=== PATIENT | male | born 1935 | race Caucasian/White ===

== ENCOUNTER 2016-12-04 10:52 | Outpatient (CLI) | payer MEDICARE, MEDICAID | END 2016-12-04 10:53 | disposition home or self-care (01) | DX: E11.8 Type 2 diabetes mellitus with unspecified complications (principal); I10 Essential (primary) hypertension ==

== ENCOUNTER 2016-12-05 | Outpatient (CLI) | payer MEDICARE, MEDICAID | END 2016-12-05 10:55 | disposition home or self-care (01) | DX: Z53.9 Procedure and treatment not carried out, unspecified reason (principal) ==

== ENCOUNTER 2016-12-05 15:19 | Outpatient (CLI) | payer MEDICARE, MEDICAID | END 2016-12-05 15:20 | disposition home or self-care (01) | DX: E11.65 Type 2 diabetes mellitus with hyperglycemia (principal) ==

== ENCOUNTER 2017-03-30 10:48 | Outpatient (CLI) | payer MEDICARE, MEDICAID | END 2017-03-30 10:49 | disposition home or self-care (01) | DX: E11.9 Type 2 diabetes mellitus without complications (principal); N18.2 Chronic kidney disease, stage 2 (mild); I12.9 Hypertensive chronic kidney disease with stage 1 through stage 4 chronic kidney disease, or unspecified chronic kidney disease ==

== ENCOUNTER 2017-07-17 15:32 | Outpatient (CLI) | payer MEDICARE, MEDICAID ==
[2017-07-17 19:54] LABS: CALCIUM 9.3 mg/dL (8.5-10.3); CREATININE 1.3 mg/dL (0.6-1.2); POTASSIUM 4.1 mmol/L (3.5-5.0)
[2017-07-17 20:33] LABS: HEMOGLOBIN A1C 1.58 g/dL
== END 2017-07-17 15:33 | disposition home or self-care (01) ==
LOC: LAB.F 15:32
PROVIDERS: ATTEND Family Medicine
DX: E11.40 Type 2 diabetes mellitus with diabetic neuropathy, unspecified (principal); L98.9 Disorder of the skin and subcutaneous tissue, unspecified
CPT/HCPCS: 36415; 80048; 83036

== ENCOUNTER 2017-10-26 12:39 | Outpatient (CLI) | payer MEDICARE, MEDICAID ==
[2017-10-26 18:20] LABS: HEMOGLOBIN A1C 1.44 g/dL
[2017-10-26 18:21] LABS: CALCIUM 8.8 mg/dL (8.5-10.3); CREATININE 1.4 mg/dL (0.6-1.2); POTASSIUM 4.5 mmol/L (3.5-5.0)
== END 2017-10-26 12:40 | disposition home or self-care (01) ==
LOC: LAB.F 12:39
PROVIDERS: ATTEND Family Medicine
DX: E11.40 Type 2 diabetes mellitus with diabetic neuropathy, unspecified (principal); E11.22 Type 2 diabetes mellitus with diabetic chronic kidney disease; I12.9 Hypertensive chronic kidney disease with stage 1 through stage 4 chronic kidney disease, or unspecified chronic kidney disease; N18.2 Chronic kidney disease, stage 2 (mild)
CPT/HCPCS: 36415; 80048; 83036

== ENCOUNTER 2018-02-07 08:51 | Outpatient (CLI) | payer MEDICARE, MEDICAID ==
[2018-02-07 11:20] LABS: CALCIUM 9.1 mg/dL (8.5-10.3); CREATININE 1.4 mg/dL (0.6-1.2); URIC ACID 6.1 mg/dL (2.6-7.2)
[2018-02-07 11:32] LABS: HB2 TOTAL 16.8 g/dL; HEMOGLOBIN A1C 1.44 g/dL
== END 2018-02-07 08:52 | disposition home or self-care (01) ==
LOC: LAB.F 08:51
PROVIDERS: ATTEND Family Medicine
DX: M1A.9XX0 Chronic gout, unspecified, without tophus (tophi) (principal); E11.40 Type 2 diabetes mellitus with diabetic neuropathy, unspecified; I10 Essential (primary) hypertension
CPT/HCPCS: 36415; 80048; 83036; 84550

== ENCOUNTER 2018-03-30 17:45 | Emergency (ER) | payer MEDICARE, MEDICAID ==
--- NOTE | 2018-03-30 18:20 | ED Physician Documentation ---
History of Present Illness - Stated complaint Stated Complaint: DIZZY, STOMACH TENDERNESS - Chief complaint Chief Complaint: General - History obtained from History obtained from: Patient, Friend - History of Present Illness Timing: Other (He has had an upset stomach for a few days, no vomiting though. Starting just prior to arrival he developed 5 or 6 episodes of diarrhea and was incontinent of stool. His chief complaint is "I am here because I shit my pants." He denies any fevers.) Review of Systems Ten Systems: 10 systems reviewed and negative Constitutional: denies: Fever, Chills GI: denies: Abdominal Swelling, Nausea, Vomiting, Constipation, Hematemesis, Bloody / black stool PD PAST MEDICAL HISTORY - Past Medical History Cardiovascular: Coronary artery disease, Arrhythmia (heart block) Endocrine/Autoimmune: Type 2 diabetes - Past Surgical History Past Surgical History: Yes Cardiovascular: CABG - Present Medications Home Medications: Ambulatory Orders Medication Instructions Recorded Confirmed Insulin Glargine,Hum.rec.anlog 30 units SQ DAILY 05/27/15 05/27/15 [Lantus] Allopurinol 1 tab PO DAILY 03/30/18 03/30/18 metFORMIN [Glucophage] 1 tab PO BID 03/30/18 03/30/18 - Allergies Allergies/Adverse Reactions: Allergies Allergy/AdvReac Type Severity Reaction Status Date / Time penicillin * [penicillin] AdvReac Unknown Verified 05/27/15 13:55 Sulfonylureas AdvReac Unknown Verified 05/27/15 13:55 - Social History Does the pt smoke?: No Does the pt drink ETOH?: No Does the pt have substance abuse?: No - Immunizations Immunizations are current?: Yes - POLST Patient has POLST: No PD ED PE NORMAL - Vitals Vital signs reviewed: Yes (HR 80 on my exam) - General General: Alert and oriented X 3, No acute distress - HEENT HEENT: PERRL, EOMI - Neck Neck: Supple, no meningeal sign, No bony TTP - Cardiac Cardiac: RRR, No murmur - Respiratory Respiratory: No respiratory distress, Clear bilaterally - Abdomen Abdomen: Normal bowel sounds, Soft, Non tender - Extremities Extremities: No edema, No calf tenderness / cord - Neuro Neuro: Alert and oriented X 3, Normal speech Results - Vitals Vitals: Vital Signs - 24 hr 03/30/18 17:49 Temperature 36.1 C L Heart Rate 134 H Respiratory 16 Rate Blood Pressure 111/83 H O2 Saturation 100 Oxygen O2 Source Room air - Labs Labs: Laboratory Tests 03/30/18 03/30/18 03/30/18 18:50 18:50 18:50 WBC 10.5 RBC 5.43 Hgb 16.4 Hct 50.1 MCV 92.3 MCH 30.3 MCHC 32.8 RDW 13.6 Plt Count 193 MPV 10.2 Neut # 7.8 H Lymph # 1.4 L [place] # 0.8 Eos # 0.4 Baso # 0.1 Absolute Nucleated RBC 0.00 Nucleated RBC % 0.0 Sodium 137 Potassium 4.2 Chloride 102 Carbon Dioxide 25 Anion Gap 10.0 BUN 44 H Creatinine 1.7 H Estimated GFR (MDRD) 39 L Glucose 234 H Lactic Acid 1.5 Calcium 9.2 Total Bilirubin 0.8 AST 22 ALT 21 Alkaline Phosphatase 86 Total Protein 7.9 Albumin 4.4 Globulin 3.5 Albumin/Globulin Ratio 1.3 Lipase 23 PD MEDICAL DECISION MAKING - ED course ED course: 82-year-old gentleman with just a few hours of diarrhea. He is not tachycardic in contrast to the triage notes. He had no bowel movements here and his lab work is unremarkable except for mild prerenal pattern and he was advised to push oral fluids. Departure - Departure Disposition: 01 Home, Self Care Clinical Impression: Diarrhea Qualifiers: Diarrhea type: unspecified type Qualified Code(s): R19.7 - Diarrhea, unspecified Condition: Good Record reviewed to determine appropriate education?: Yes Instructions: ED Diarrhea Viral Comments: Drink plenty of fluids, return if worse, follow-up with your doctor this coming week.
[2018-03-30 19:03] LABS: BASOPHILS # (AUTO) 0.1 10^3/uL (0.0-0.1); BASOPHILS % (AUTO) 0.8 %; EOSINOPHILS # (AUTO) 0.4 10^3/uL (0.0-0.7); EOSINOPHILS % (AUTO) 3.9 %; HGB - HEMOGLOBIN 16.4 g/dL (14.0-18.0); LYMPHOCYTES # (AUTO) 1.4 10^3/uL (1.5-3.5); MEAN CORPUSCULAR HEMOGLOBIN 30.3 pg (27.0-31.0); MEAN CORPUSCULAR HGB CONC 32.8 g/dL (32.0-36.0); MEAN CORPUSCULAR VOLUME 92.3 fL (80.0-94.0); MEAN PLATELET VOLUME 10.2 fL (7.4-11.4); MONOCYTES # (AUTO) 0.8 10^3/uL (0.0-1.0); MONOCYTES % (AUTO) 7.5 %; NEUTROPHILS # (AUTO) 7.8 10^3/uL (1.5-6.6); NEUTROPHILS % (AUTO) 74.8 %; PLT - PLATELET COUNT 193 10^3/uL (130-450); RED BLOOD COUNT 5.43 10^6/uL (4.70-6.10); RED CELL DISTRIBUTION WIDTH 13.6 % (12.0-15.0); WHITE BLOOD COUNT 10.5 x10^3/uL (4.8-10.8)
[2018-03-30 19:12] LABS: ALBUMIN 4.4 g/dL (3.2-5.5); ALBUMIN/GLOBULIN RATIO 1.3 (1.0-2.2); BILIRUBIN,TOTAL 0.8 mg/dL (0.2-1.0); CALCIUM 9.2 mg/dL (8.5-10.3); CREATININE 1.7 mg/dL (0.6-1.2); TOTAL PROTEIN 7.9 g/dL (6.7-8.2)
[2018-03-30 19:32] VITALS: BP 150/64
== END 2018-03-30 19:30 | disposition home or self-care (01) ==
LOC: ED 17:45
DX: R19.7 Diarrhea, unspecified (principal); E11.9 Type 2 diabetes mellitus without complications; Z79.4 Long term (current) use of insulin; I25.10 Atherosclerotic heart disease of native coronary artery without angina pectoris; Z95.1 Presence of aortocoronary bypass graft
CPT/HCPCS: 36415; 80053; 83605; 83690; 85025; 99282; 99283

== ENCOUNTER 2018-05-09 09:33 | Outpatient (CLI) | payer MEDICARE, MEDICAID ==
[2018-05-09 18:21] LABS: ALBUMIN 3.9 g/dL (3.2-5.5); ALBUMIN/GLOBULIN RATIO 1.1 (1.0-2.2); BILIRUBIN,TOTAL 0.9 mg/dL (0.2-1.0); CALCIUM 9.3 mg/dL (8.5-10.3); CREATININE 1.5 mg/dL (0.6-1.2); TOTAL PROTEIN 7.4 g/dL (6.7-8.2)
[2018-05-09 18:25] LABS: HB2 TOTAL 17.9 g/dL; HEMOGLOBIN A1C 1.59 g/dL; HEMOGLOBIN A1C % 10.3 % (4.6-6.2)
== END 2018-05-09 09:34 | disposition home or self-care (01) ==
LOC: LAB.F 09:33
PROVIDERS: ATTEND Family Medicine
DX: E11.22 Type 2 diabetes mellitus with diabetic chronic kidney disease (principal); E11.40 Type 2 diabetes mellitus with diabetic neuropathy, unspecified; N18.2 Chronic kidney disease, stage 2 (mild); I25.810 Atherosclerosis of coronary artery bypass graft(s) without angina pectoris
CPT/HCPCS: 36415; 80053; 83036; 84443

== ENCOUNTER 2018-07-18 14:33 | Outpatient (CLI) | payer MEDICARE, MEDICAID ==
[2018-07-18 17:59] LABS: HB2 TOTAL 15.4 g/dL; HEMOGLOBIN A1C 1.44 g/dL; HEMOGLOBIN A1C % 10.7 % (4.6-6.2)
== END 2018-07-18 14:34 | disposition home or self-care (01) ==
LOC: LAB.F 14:33
PROVIDERS: ATTEND Nurse Practitioner Family
DX: E11.40 Type 2 diabetes mellitus with diabetic neuropathy, unspecified (principal)
CPT/HCPCS: 36415; 83036

== ENCOUNTER 2018-09-13 02:29 | Outpatient (CLI) | payer MEDICARE, MEDICAID | END 2018-09-13 02:30 | disposition EMS.NT | LOC: EMS 02:29 | PROVIDERS: ATTEND Surgery | DX: Z03.89 Encounter for observation for other suspected diseases and conditions ruled out (principal) ==

== ENCOUNTER 2018-10-14 08:00 | Outpatient (CLI) | payer MEDICARE, MEDICAID ==
[2018-10-14 18:59] LABS: HEMOGLOBIN A1C 1.02 g/dL; HEMOGLOBIN A1C % 8.4 % (4.6-6.2)
== END 2018-10-14 23:59 | disposition home or self-care (01) ==
LOC: LAB.S 08:00
PROVIDERS: ATTEND Nurse Practitioner Family
DX: E11.40 Type 2 diabetes mellitus with diabetic neuropathy, unspecified (principal)
CPT/HCPCS: 36415; 83036

== ENCOUNTER 2018-12-30 08:00 | Outpatient (CLI) | payer MEDICARE, MEDICAID ==
[2018-12-30 18:57] LABS: HB2 TOTAL 17.2 g/dL; HEMOGLOBIN A1C 1.38 g/dL; HEMOGLOBIN A1C % 9.5 % (4.6-6.2)
== END 2018-12-30 23:59 | disposition home or self-care (01) ==
LOC: LAB.S 08:00
PROVIDERS: ATTEND Nurse Practitioner Family
DX: E11.40 Type 2 diabetes mellitus with diabetic neuropathy, unspecified (principal)
CPT/HCPCS: 36415; 83036

== ENCOUNTER 2019-01-31 06:34 | Outpatient (CLI) | payer MEDICARE, MEDICAID | END 2019-01-31 06:35 | disposition critical access hospital (66) | LOC: EMS 06:34 | PROVIDERS: ATTEND Surgery | DX: M25.552 Pain in left hip (principal); W18.30XA Fall on same level, unspecified, initial encounter; Y93.E2 Activity, laundry; Y92.019 Unspecified place in single-family (private) house as the place of occurrence of the external cause; Y99.8 Other external cause status | CPT/HCPCS: A0425; A0429 ==

== ENCOUNTER 2019-01-31 07:10 | Emergency (ER) | payer MEDICARE, MEDICAID ==
[2019-01-31 07:43] LABS: BASOPHILS # (AUTO) 0.1 10^3/uL (0.0-0.1); EOSINOPHILS # (AUTO) 0.7 10^3/uL (0.0-0.7); EOSINOPHILS % (AUTO) 7.8 %; HGB - HEMOGLOBIN 15.4 g/dL (14.0-18.0); LYMPHOCYTES # (AUTO) 1.8 10^3/uL (1.5-3.5); LYMPHOCYTES % (AUTO) 20.9 %; MEAN CORPUSCULAR HEMOGLOBIN 29.8 pg (27.0-31.0); MEAN CORPUSCULAR HGB CONC 33.3 g/dL (32.0-36.0); MEAN CORPUSCULAR VOLUME 89.7 fL (80.0-94.0); MEAN PLATELET VOLUME 9.7 fL (7.4-11.4); MONOCYTES % (AUTO) 11.3 %; PLT - PLATELET COUNT 170 10^3/uL (130-450); RED BLOOD COUNT 5.16 10^6/uL (4.70-6.10); RED CELL DISTRIBUTION WIDTH 14.3 % (12.0-15.0); WHITE BLOOD COUNT 8.5 x10^3/uL (4.8-10.8)
[2019-01-31 07:48] LABS: ALBUMIN 3.9 g/dL (3.2-5.5); ALBUMIN/GLOBULIN RATIO 1.2 (1.0-2.2); BILIRUBIN,TOTAL 0.8 mg/dL (0.2-1.0); CREATININE 1.2 mg/dL (0.6-1.2); TOTAL PROTEIN 7.2 g/dL (6.7-8.2)
--- NOTE | 2019-01-31 07:48 | ED Physician Documentation ---
PD HPI Fall - Stated complaint Stated Complaint: GLF - Chief complaint Chief Complaint: General - History obtained from History obtained from: Patient - History of Present Illness Mechanism of injury: Lost balance Fall distance: Standing position Where injury occurred: Home Timing - onset: Yesterday Injury(ies) location: Left Lower Extremity Quality of pain: Pain Associated symptoms: Neck pain. No: LOC, Weakness Worsens with: Movement, Other (Weight bearing.) Similar symptoms before: Has not had sx before - Additional information Additional information: The patient is an 83-year-old male who arrives via ambulance complaining of left hip pain after falling yesterday. He was bending over to picking tech clothing from the floor when he lost his balance and stumbled, landing onto his left hip. He uses a walker when ambulating, and has been able to ambulate since the incident occurred, but the pain was worse this morning, causing difficulty getting up from bed. He also complains of pain in his right shoulder, at the base of his neck. He denies headache, chest pain or shortness of breath, nausea or vomiting, numbness or weakness. Review of Systems Constitutional: denies: Fever Eyes: denies: Decreased vision Ears: reports: Other (Chronic hearing impairment.). denies: Tinnitus/ringing Nose: denies: Congestion Throat: denies: Sore throat Cardiac: denies: Chest pain / pressure Respiratory: denies: Dyspnea, Cough GI: denies: Abdominal Pain, Nausea, Vomiting : denies: Dysuria Skin: denies: Rash, Abrasion (s) Musculoskeletal: reports: Neck pain, Joint pain (left hip) Neurologic: denies: Focal weakness, Numbness, Headache PD PAST MEDICAL HISTORY - Past Medical History Past Medical History: Yes Cardiovascular: Coronary artery disease, Arrhythmia Endocrine/Autoimmune: Type 2 diabetes - Past Surgical History Past Surgical History: Yes Cardiovascular: CABG - Present Medications Home Medications: Ambulatory Orders Medication Instructions Recorded Confirmed Insulin Glargine,Hum.rec.anlog 30 units SQ DAILY 05/27/15 05/27/15 [Lantus] Allopurinol 1 tab PO DAILY 03/30/18 03/30/18 metFORMIN [Glucophage] 1 tab PO BID 03/30/18 03/30/18 Hydrocodone/Acetaminophen 1 - 2 each PO Q6H PRN #14 tablet 01/31/19 [Hydrocodon-Acetaminophen 5-325] - Allergies Allergies/Adverse Reactions: Allergies Allergy/AdvReac Type Severity Reaction Status Date / Time penicillin * [penicillin] AdvReac Unknown Verified 01/31/19 07:24 Sulfonylureas AdvReac Unknown Verified 01/31/19 07:24 - Living Situation Living Situation: reports: Alone Living Arrangement: reports: At home - Social History Does the pt smoke?: No Smoking Status: Never smoker Does the pt drink ETOH?: No Does the pt have substance abuse?: No - Immunizations Immunizations are current?: Yes - POLST Patient has POLST: No PD ED PE NORMAL - Vitals Vital signs reviewed: Yes (normal) - General General: Alert and oriented X 3, Well developed/nourished - HEENT HEENT: Atraumatic, EOMI, Pharynx benign - Neck Neck: Supple, no meningeal sign, No bony TTP, Other (Mild tenderness to palpation in the right lower paracervical musculature. No tenderness to palpation along the spinous processes.) - Cardiac Cardiac: RRR - Respiratory Respiratory: No respiratory distress, Clear bilaterally - Abdomen Abdomen: Soft, Non tender - Back Back: No CVA TTP, No spinal TTP - Derm Derm: No rash - Extremities Extremities: No edema, No calf tenderness / cord, Other (There is tenderness to palpation at the posterior lateral aspect of the left hip, more along the inferior pubic ramus than the hip joint. He is able to internally and externally rotate the hip, although it produces mild discomfort. Distal neurovascular is intact.) - Neuro Neuro: Alert and oriented X 3, No motor deficit, No sensory deficit Results - Vitals Vitals: Vital Signs - 24 hr 01/31/19 01/31/19 11:10 12:32 Temperature 36.2 C L Heart Rate 72 78 Respiratory 18 18 Rate Blood Pressure 118/85 H 137/76 H O2 Saturation 96 91 L Oxygen O2 Source Room air - EKG (time done) 07:56 Rate: Rate (enter#) (66) Rhythm: Paced (Atrial-sensed, ventricular-paced complexes.) Compare to prior EKG: Changed from prior EKG (Pacer is new since prior tracing of 05/27/2015.) - Labs Labs: Laboratory Tests 01/31/19 01/31/19 07:28 07:28 WBC 8.5 RBC 5.16 Hgb 15.4 Hct 46.3 MCV 89.7 MCH 29.8 MCHC 33.3 RDW 14.3 Plt Count 170 MPV 9.7 Neut # (Auto) 5.0 Lymph # (Auto) 1.8 [place] # (Auto) 1.0 Eos # (Auto) 0.7 Baso # (Auto) 0.1 Absolute Nucleated RBC 0.00 Nucleated RBC % 0.0 Sodium 139 Potassium 3.7 Chloride 103 Carbon Dioxide 28 Anion Gap 8.0 BUN 28 H Creatinine 1.2 Estimated GFR (MDRD) 58 L Glucose 121 H Calcium 9.0 Total Bilirubin 0.8 AST 24 ALT 22 Alkaline Phosphatase 90 Total Protein 7.2 Albumin 3.9 Globulin 3.3 Albumin/Globulin Ratio 1.2 Lipase 56 H - Rads (name of study) Left hip/pelvis Radiology: Prelim report reviewed, EMP read contemporaneously, See rad report (1) Acute fracture of the left inferior pubic ramus near its junction with the ischial tuberosity. Expected slot editor fracture within the left obturator ring is not apparent on these radiographs. 2) No appreciable hip fracture. 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 Limited visualization of C7-T1 due to superimposed structures.) PD MEDICAL DECISION MAKING - ED course Complexity details: reviewed results, re-evaluated patient, considered differential, d/w patient ED course: The patient's presentation is significant for a left inferior pubic ramus fracture caused by a low-impact fall yesterday. Other than contusion to the right shoulder, no other injuries are detected. Cervical spine films reveal no evidence of cervical spine fracture. The patient demonstrates ability to ambulate with the assistance of a walker, which is his baseline level of ambulation. I discussed with him the expected course of injury, symptomatic treatment and outpatient follow-up, as well as potentially worrisome signs or symptoms that should prompt reevaluation in the emergency department. Departure - Departure Disposition: 01 Home, Self Care Clinical Impression: Closed fracture of single pubic ramus of pelvis Qualifiers: Encounter type: initial encounter Laterality: left Qualified Code(s): S32.592A - Other specified fracture of left pubis, initial encounter for closed fracture Condition: Stable Instructions: ED Fx Pelvis Follow-Up: Fly,Sylvia M, EDUCATION AND TRAINING MANAGER [Credentialed Staff Provider] - Prescriptions: Hydrocodone/Acetaminophen [Hydrocodon-Acetaminophen 5-325] 1 - 2 each PO Q6H PRN #14 tablet PRN Reason: pain Comments: Apply ice pack to the sore area intermittently for the next 3 days. You can use ibuprofen, up to 600 mg 3 times daily for its anti-inflammatory effect. You can use Vicodin as prescribed if needed for pain. Follow-up with your primary physician within 1-2 weeks. Call to schedule an appointment. Return to the emergency department if you develop significantly increasing pain, or otherwise worsening symptoms. Discharge Date/Time: 01/31/19 12:32
--- NOTE | 2019-01-31 08:17 | XRAY Report ---
Reason: Left hip pain after fall. Procedure Date: 01/31/2019 Accession Number: [id number] / [id number] Procedure: XR - Hip w/Pelvis 2-3V LT CPT Code: FULL RESULT: EXAM: LEFT HIP RADIOGRAPHY EXAM DATE: 01/31/2019 07:56 AM. CLINICAL HISTORY: Left hip pain after a fall. COMPARISON: None. TECHNIQUE: 2 views. FINDINGS: Bones: Acute nondisplaced fracture is noted of the left inferior pubic ramus near its junction with the ischial tuberosity. Expected program counselor fracture of the left obturator ring and/or acetabulum is not demonstrated on these radiographs. No appreciable hip fracture. Sacral ala appear intact. 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 There is both subchondral sclerosis and degenerative subchondral cysts on both sides of the joint space. Mild to moderate marginal osteophyte noted of the femoral head. Soft Tissues: Normal. No soft tissue swelling. IMPRESSION: 1. Acute fracture of the left inferior pubic ramus near its junction with the ischial tuberosity. Expected program counselor fracture within the left obturator ring is not apparent on these radiographs. 2. No appreciable hip fracture. 3. 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 RADIA
--- NOTE | 2019-01-31 08:22 | XRAY Report ---
Reason: lower neck pain after fall Procedure Date: 01/31/2019 Accession Number: [id number] / [id number] Procedure: XR - Cervical Spine 2 View CPT Code: FULL RESULT: EXAM: CERVICAL SPINE RADIOGRAPHY EXAM DATE: 01/31/2019 07:56 AM. CLINICAL HISTORY: Lower neck pain after a fall. COMPARISONS: None. TECHNIQUE: 3 views. FINDINGS: Alignment: Normal. No spondylolisthesis or scoliosis. Bones: Evaluation is mildly limited by motion artifact on the cross-table lateral view. Further, the C7-T1 articulation is obscured by superimposed shoulder. No appreciable malalignment. No appreciable fractures or bone lesions. Disks: Mild degenerative disk space narrowing at C4-C5 Facets: No degenerative disease. Soft Tissues: Normal. No prevertebral soft tissue swelling. The visualized lung apices are clear. IMPRESSION: Limited lateral radiography, but no fracture appreciated. Limited visualization of C7-T1 due to superimposed structures. Recommend repeat exam or cervical spine CT. RADIA
[2019-01-31 12:33] VITALS: BP 137/76
== END 2019-01-31 12:32 | disposition home or self-care (01) ==
LOC: EDUNIT# → ED 07:10
DX: S32.592A Other specified fracture of left pubis, initial encounter for closed fracture (principal); S40.011A Contusion of right shoulder, initial encounter; W01.0XXA Fall on same level from slipping, tripping and stumbling without subsequent striking against object, initial encounter; Y93.89 Activity, other specified; Y92.009 Unspecified place in unspecified non-institutional (private) residence as the place of occurrence of the external cause; R94.31 Abnormal electrocardiogram [ECG] [EKG]; Z95.0 Presence of cardiac pacemaker; I25.10 Atherosclerotic heart disease of native coronary artery without angina pectoris; E11.9 Type 2 diabetes mellitus without complications; Z79.4 Long term (current) use of insulin; Z95.1 Presence of aortocoronary bypass graft
CPT/HCPCS: 36415; 72040; 80053; 83690; 85025; 93005; 99283; 99284

== ENCOUNTER 2019-03-13 12:52 | Outpatient (CLI) | payer MEDICARE, MEDICAID | END 2019-03-13 12:53 | disposition home or self-care (01) | LOC: DI 12:52 | PROVIDERS: ATTEND Internal Medicine Cardiovascular Disease | DX: I48.92 Unspecified atrial flutter (principal); I51.9 Heart disease, unspecified; I51.7 Cardiomegaly | CPT/HCPCS: 93306 ==

== ENCOUNTER 2019-03-21 12:53 | Outpatient (CLI) | payer MEDICARE, MEDICAID ==
[2019-03-21 18:35] LABS: HB2 TOTAL 14.5 g/dL; HEMOGLOBIN A1C 1.15 g/dL; HEMOGLOBIN A1C % 9.4 % (4.6-6.2)
== END 2019-03-21 12:54 | disposition home or self-care (01) ==
LOC: LAB.F 12:53
PROVIDERS: ATTEND Nurse Practitioner Family
DX: E11.40 Type 2 diabetes mellitus with diabetic neuropathy, unspecified (principal)
CPT/HCPCS: 36415; 83036

== ENCOUNTER 2019-03-22 13:24 | Outpatient (CLI) | payer MEDICARE, MEDICAID | END 2019-03-22 13:25 | disposition EMS.NT | LOC: EMS 13:24 | PROVIDERS: ATTEND Surgery | DX: R42 Dizziness and giddiness (principal) ==

== ENCOUNTER 2019-04-28 15:03 | Outpatient (CLI) | payer MEDICARE, MEDICAID ==
[2019-04-28 17:27] LABS: CREATININE,URINE 106.1 mg/dL; MICROALBUM/CREATININE RATIO,UR 46.2 ug/mg (<30.0); MICROALBUMIN,URINE 4.9 mg/dL (0-300.0)
== END 2019-04-28 15:04 | disposition home or self-care (01) ==
LOC: LAB.F 15:03
PROVIDERS: ATTEND Registered Nurse
DX: E11.40 Type 2 diabetes mellitus with diabetic neuropathy, unspecified (principal)
CPT/HCPCS: 82043; 82570

== ENCOUNTER 2019-06-18 13:50 | Outpatient (CLI) | payer MEDICARE, MEDICAID | END 2019-06-18 23:59 | disposition home or self-care (01) | LOC: LAB.R 13:50 | PROVIDERS: ATTEND Registered Nurse | DX: R19.7 Diarrhea, unspecified (principal) | CPT/HCPCS: 87045; 87046 ==

== ENCOUNTER 2019-06-20 14:00 | Outpatient (CLI) | payer MEDICARE, MEDICAID | END 2019-06-20 23:59 | disposition home or self-care (01) | LOC: LAB.R 14:00 | PROVIDERS: ATTEND Family Medicine | DX: R19.7 Diarrhea, unspecified (principal) | CPT/HCPCS: 82274; 87493 ==

== ENCOUNTER 2019-06-23 14:21 | Outpatient (CLI) | payer MEDICARE, MEDICAID ==
[2019-06-23 14:58] LABS: BASOPHILS # (AUTO) 0.1 10^3/uL (0.0-0.1); BASOPHILS % (AUTO) 0.6 %; EOSINOPHILS # (AUTO) 0.5 10^3/uL (0.0-0.7); EOSINOPHILS % (AUTO) 4.6 %; HGB - HEMOGLOBIN 13.7 g/dL (14.0-18.0); LYMPHOCYTES # (AUTO) 1.7 10^3/uL (1.5-3.5); MEAN CORPUSCULAR HEMOGLOBIN 29.8 pg (27.0-31.0); MEAN CORPUSCULAR HGB CONC 33.2 g/dL (32.0-36.0); MEAN PLATELET VOLUME 11.9 fL (7.4-11.4); MONOCYTES # (AUTO) 0.9 10^3/uL (0.0-1.0); MONOCYTES % (AUTO) 8.5 %; NEUTROPHILS % (AUTO) 68.7 %; PLT - PLATELET COUNT 202 10^3/uL (130-450); RED BLOOD COUNT 4.59 10^6/uL (4.70-6.10); RED CELL DISTRIBUTION WIDTH 14.4 % (12.0-15.0); WHITE BLOOD COUNT 10.2 x10^3/uL (4.8-10.8)
[2019-06-23 15:19] LABS: CREATININE,URINE 56.1 mg/dL; MICROALBUM/CREATININE RATIO,UR 49.9 ug/mg (<30.0); MICROALBUMIN,URINE 2.8 mg/dL (0-300.0)
[2019-06-23 15:20] LABS: ALBUMIN 3.7 g/dL (3.2-5.5); ALBUMIN/GLOBULIN RATIO 1.1 (1.0-2.2); ALKALINE PHOSPHATASE 73 IU/L (42-121); ALT ALANINE AMINOTRANSFERASE 14 IU/L (10-60); AST ASPARTATE AMINOTRANSFERASE 15 IU/L (10-42); BILIRUBIN,TOTAL 0.6 mg/dL (0.2-1.0); BUN - BLOOD UREA NITROGEN 34 mg/dL (6-20); CALCIUM 9.1 mg/dL (8.5-10.3); CARBON DIOXIDE - CO2 28 mmol/L (21-32); CHLORIDE 100 mmol/L (101-111); CHOL/HDL RATIO 4.3 (<5.0); CHOLESTEROL 211 mg/dL; CREATININE 1.5 mg/dL (0.6-1.2); GFR - MDRD 45 (>89); GLUCOSE 211 mg/dL (70-100); HDL CHOLESTEROL 49 mg/dL; LDL CHOLESTEROL,CALCULATED 139 mg/dL; LDL/HDL RATIO 2.8 (<3.6); SODIUM 142 mmol/L (135-145); VLDL CHOLESTEROL 23 mg/dL
[2019-06-23 16:34] LABS: HB2 TOTAL 14.7 g/dL; HEMOGLOBIN A1C 1.14 g/dL; HEMOGLOBIN A1C % 9.2 % (4.6-6.2)
== END 2019-06-23 14:22 | disposition home or self-care (01) ==
LOC: LAB 14:21
PROVIDERS: ATTEND Registered Nurse
DX: E11.40 Type 2 diabetes mellitus with diabetic neuropathy, unspecified (principal); I10 Essential (primary) hypertension; E78.5 Hyperlipidemia, unspecified; R19.7 Diarrhea, unspecified
CPT/HCPCS: 36415; 80053; 80061; 82043; 82570; 83036; 83721; 84443; 85025

== ENCOUNTER 2019-07-07 11:09 | Emergency (ER) | payer MEDICARE, MEDICAID ==
[2019-07-07 11:46] LABS: BASOPHILS % (AUTO) 0.3 %; EOSINOPHILS # (AUTO) 0.9 10^3/uL (0.0-0.7); EOSINOPHILS % (AUTO) 9.5 %; HGB - HEMOGLOBIN 13.9 g/dL (14.0-18.0); LYMPHOCYTES # (AUTO) 1.4 10^3/uL (1.5-3.5); LYMPHOCYTES % (AUTO) 14.9 %; MEAN CORPUSCULAR HEMOGLOBIN 29.8 pg (27.0-31.0); MEAN CORPUSCULAR HGB CONC 32.9 g/dL (32.0-36.0); MEAN CORPUSCULAR VOLUME 90.8 fL (80.0-94.0); MEAN PLATELET VOLUME 11.7 fL (7.4-11.4); MONOCYTES # (AUTO) 1.1 10^3/uL (0.0-1.0); MONOCYTES % (AUTO) 11.1 %; NEUTROPHILS % (AUTO) 63.7 %; PLT - PLATELET COUNT 238 10^3/uL (130-450); RED BLOOD COUNT 4.66 10^6/uL (4.70-6.10); WHITE BLOOD COUNT 9.5 x10^3/uL (4.8-10.8)
[2019-07-07 11:59] LABS: ALBUMIN 3.7 g/dL (3.2-5.5); BILIRUBIN,TOTAL 0.7 mg/dL (0.2-1.0); CALCIUM 9.1 mg/dL (8.5-10.3); CREATININE 1.5 mg/dL (0.6-1.2); TOTAL PROTEIN 7.5 g/dL (6.7-8.2)
[2019-07-07] MEDS ORDERED: SODIUM CHLORIDE 0.9% 1,000 ML IV ONE (12:09)
--- NOTE | 2019-07-07 12:49 | ED Physician Documentation ---
PD HPI NVD - Stated complaint Stated Complaint: DIARRHEA - Chief complaint Chief Complaint: General - History obtained from History obtained from: Patient - History of Present Illness Timing - onset: Yesterday Timing - duration: Days (2 days of diarrhea again. He had had diarrhea a month ago and was seen subsequently in the office and diagnosed with C. difficile. He underwent 10 days of vancomycin and and had improved to the point of formed stools with just a couple of diarrhea episodes in the middle. He states he finished the vancomycin 2 days ago and is having diarrhea again. He is having a little bit of crampy abdominal pain. He denies any nausea or vomiting.) Timing - details: Abrupt onset, Still present Associated symptoms: Abdominal pain (moderate cramping intermittently), Loss of appetite. No: Fever, Hematochezia, Near syncope / syncope Contributing factors: Recent antibiotics (Vanco for C. Diff. and finished it 3 days ago). No: Sick contact, Bad food Improved by: BM (cramps improve with BM) Worsened by: Eating Similar symptoms before: Diagnosis (c. diff.) Recently seen: Clinic Review of Systems Constitutional: denies: Fever, Chills Nose: denies: Rhinorrhea / runny nose, Congestion Throat: denies: Sore throat Respiratory: denies: Cough Skin: reports: Lesions (has had a foot sore, followed at [facility] wound care clinic, and is not on any meds for that. Son says it has had E.Coli cultured from it. Local treatment and dressings only.) Neurologic: reports: Generalized weakness. denies: Focal weakness, Numbness, Near syncope, Altered mental status PD PAST MEDICAL HISTORY - Past Medical History Past Medical History: Yes Cardiovascular: Coronary artery disease, Arrhythmia, Valve disorder Respiratory: None Neuro: None Endocrine/Autoimmune: Type 2 diabetes GI: None HEENT: Chronic hearing loss Psych: Depression Musculoskeletal: None Derm: None - Past Surgical History Past Surgical History: Yes Cardiovascular: CABG, Pacemaker HEENT: Cataracts - Present Medications Home Medications: Ambulatory Orders Medication Instructions Recorded Confirmed Insulin Glargine,Hum.rec.anlog 40 units SQ DAILY 05/27/15 06/11/19 [Lantus] RX: Allopurinol 100 mg PO DAILY 03/30/18 06/11/19 RX: metFORMIN [Glucophage] 500 mg PO TID 03/30/18 06/11/19 Calcium Carbonate/Vitamin D3 1 tab PO DAILY 06/11/19 06/11/19 [Caltrate 600 Plus D3 Tablet] Furosemide [Lasix] 20 mg PO DAILY 06/11/19 06/11/19 RX: Escitalopram Oxalate 5 mg PO DAILY 06/11/19 06/11/19 RX: Lisinopril [Zestril] 5 mg PO DAILY 06/11/19 06/11/19 RX: Potassium Chloride [Micro-K] 5 meq PO DAILY 06/11/19 06/11/19 Hydrocodone/Acetaminophen [[place] 1 each PO Q6H PRN #20 tablet 07/07/19 5-325 Tablet] Metronidazole [Flagyl] 500 mg PO BID #20 tablet 07/07/19 Ondansetron Odt [Zofran] 4 mg TL Q6H PRN #15 tablet 07/07/19 Saccharomyces Boulardii [Florastor] 250 mg PO BID #20 capsule 07/07/19 - Allergies Allergies/Adverse Reactions: Allergies Allergy/AdvReac Type Severity Reaction Status Date / Time amoxicillin Allergy Unknown Verified 06/11/19 09:58 rosuvastatin [From Crestor] Allergy Unknown Verified 06/11/19 09:58 sertraline [From Zoloft] Allergy Unknown Verified 06/11/19 09:58 simvastatin Allergy Unknown Verified 06/11/19 09:58 Sulfa (Sulfonamide Allergy Unknown Verified 06/11/19 09:58 Antibiotics) penicillin * [penicillin] AdvReac Unknown Verified 01/31/19 07:24 Sulfonylureas AdvReac Unknown Verified 01/31/19 07:24 - Social History Does the pt smoke?: No Smoking Status: Never smoker Does the pt drink ETOH?: No Does the pt have substance abuse?: No - Immunizations Immunizations are current?: Yes - POLST Patient has POLST: No PD ED PE NORMAL - Vitals Vital signs reviewed: Yes - General General: Alert and oriented X 3, No acute distress, Well developed/nourished - HEENT HEENT: Pharynx benign - Neck Neck: Supple, no meningeal sign, No adenopathy - Cardiac Cardiac: RRR, No murmur - Respiratory Respiratory: Clear bilaterally - Abdomen Abdomen: Soft, Non tender, Non distended, No organomegaly. No: Normal bowel sounds (increased diffusely) - Back Back: No CVA TTP - Derm Derm: Normal color, Warm and dry - Extremities Extremities: No edema, No calf tenderness / cord, Other (foot wound dressing in place) - Neuro Neuro: Alert and oriented X 3, No motor deficit, Normal speech Results - Vitals Vitals: Vital Signs - 24 hr 07/07/19 07/07/19 07/07/19 11:23 12:42 14:14 Temperature 36.6 C Heart Rate 61 63 80 Respiratory 14 18 18 Rate Blood Pressure 148/84 H 144/74 H 132/90 H O2 Saturation 100 100 100 07/07/19 16:00 Temperature Heart Rate 80 Respiratory 16 Rate Blood Pressure 112/85 H O2 Saturation 97 Oxygen O2 Source Room air - Labs Labs: Laboratory Tests 07/07/19 07/07/19 07/07/19 11:40 11:40 11:40 WBC 9.5 RBC 4.66 L Hgb 13.9 L Hct 42.3 MCV 90.8 MCH 29.8 MCHC 32.9 RDW 14.0 Plt Count 238 MPV 11.7 H Neut # (Auto) 6.0 Lymph # (Auto) 1.4 L [place] # (Auto) 1.1 H Eos # (Auto) 0.9 H Baso # (Auto) 0.0 Absolute Nucleated RBC 0.00 Nucleated RBC % 0.0 Sodium 135 Potassium 4.8 Chloride 99 L Carbon Dioxide 23 Anion Gap 13.0 BUN 32 H Creatinine 1.5 H Estimated GFR (MDRD) 45 L Glucose 229 H Calcium 9.1 Magnesium 2.1 Total Bilirubin 0.7 AST 15 ALT 16 Alkaline Phosphatase 81 Total Protein 7.5 Albumin 3.7 Globulin 3.8 Albumin/Globulin Ratio 1.0 Lipase 38 Urine Color Urine Clarity Urine pH Ur Specific [place] Urine Protein Urine Glucose (UA) Urine Ketones Urine Occult Blood Urine Nitrite Urine Bilirubin Urine Urobilinogen Ur Leukocyte Esterase Urine RBC Urine WBC Ur Squamous Epith Cells Urine Bacteria Urine Mucus Ur Microscopic Review Urine Culture Comments 07/07/19 15:19 WBC RBC Hgb Hct MCV MCH MCHC RDW Plt Count MPV Neut # (Auto) Lymph # (Auto) [place] # (Auto) Eos # (Auto) Baso # (Auto) Absolute Nucleated RBC Nucleated RBC % Sodium Potassium Chloride Carbon Dioxide Anion Gap BUN Creatinine Estimated GFR (MDRD) Glucose Calcium Magnesium Total Bilirubin AST ALT Alkaline Phosphatase Total Protein Albumin Globulin Albumin/Globulin Ratio Lipase Urine Color YELLOW Urine Clarity CLEAR Urine pH 5.5 Ur Specific [place] 1.020 Urine Protein 30 H Urine Glucose (UA) >=1000 H Urine Ketones 15 H Urine Occult Blood TRACE-LYSE Urine Nitrite NEGATIVE Urine Bilirubin NEGATIVE Urine Urobilinogen 0.2 (NORMAL) Ur Leukocyte Esterase NEGATIVE Urine RBC 0-5 Urine WBC 6-10 H Ur Squamous Epith Cells FEW Squamous Urine Bacteria Few Urine Mucus Moderate Strands Ur Microscopic Review INDICATED Urine Culture Comments INDICATED PD MEDICAL DECISION MAKING - ED course Complexity details: considered differential (given the recurrence of diarrhea promptly after done the Vanco for the c.diff., I would presume it is still that. Can get stool study. Otherwise will try Flagyl. Son says the Vanco was the only med Rx so far, which was a good one to use, but if recurrent symptoms, then will try flagyl instead. It might give some coverage to foot wound as well. ), d/w patient Departure - Departure Disposition: 01 Home, Self Care Clinical Impression: C. difficile diarrhea, Generalized weakness Fall from slip, trip, or stumble Qualifiers: Encounter type: initial encounter Qualified Code(s): W01.0XXA - Fall on same level from slipping, tripping and stumbling without subsequent striking against object, initial encounter Acute thoracic myofascial strain Qualifiers: Encounter type: initial encounter Qualified Code(s): S29.019A - Strain of muscle and tendon of unspecified wall of thorax, initial encounter Condition: Stable Record reviewed to determine appropriate education?: Yes Instructions: ED Diarrhea Bacterial, ED Sprain Thoracic Spine Follow-Up: Brandee Monreal ARNP [Primary Care Provider] - Prescriptions: Hydrocodone/Acetaminophen [[place] 5-325 Tablet] 1 each PO Q6H PRN #20 tablet PRN Reason: Pain Metronidazole [Flagyl] 500 mg PO BID #20 tablet Ondansetron Odt [Zofran] 4 mg TL Q6H PRN #15 tablet PRN Reason: Nausea / Vomiting Saccharomyces Boulardii [Florastor] 250 mg PO BID #20 capsule Comments: Stay well-hydrated. Continue with your walker for balance. Ondansatron if needs for nausea. Tylenol or hydrocodone as needed for belly and back pain. Metronidazole antibiotic twice daily for 10 days. Florastor probiotic twice daily for 10 days as well. Follow-up with your primary care later this week if not improving. Discharge Date/Time: 07/07/19 16:05
[2019-07-07] MEDS ORDERED: MORPHINE 10 MG/ML VIAL IVP STA (13:47)
[2019-07-07] MEDS ORDERED: metroNIDAZOLE 500 MG/100 ML 500 MG/100 ML BAG IV ONE (13:48)
[2019-07-07] MEDS ORDERED: KETOROLAC 15 MG/ML VIAL IVP STA (13:49)
--- NOTE | 2019-07-07 14:51 | CT Report ---
Reason: fall with mid thoracic pain Procedure Date: 07/07/2019 Accession Number: [id number] / [id number] Procedure: CT - THORACIC SPINE WO CPT Code: FULL RESULT: EXAM: CT THORACIC SPINE WITHOUT CONTRAST EXAM DATE: 07/07/2019 02:16 PM. CLINICAL HISTORY: 84-year-old man status post fall with mid thoracic pain. COMPARISONS: None. TECHNIQUE: Thin-section axial images were acquired of the thoracic spine from C7 to L1 without contrast. Post-processing: Coronal and sagittal reformats. Other: None. In accordance with CT protocol optimization, one or more of the following dose reduction techniques were utilized for this exam: automated exposure control, adjustment of mA and/or KV based on patient size, or use of iterative reconstructive technique. FINDINGS: Alignment: Minimal grade 1 antral listhesis of T2 on T3 measures approximate 2 mm. There is also mild convex left scoliosis centered in the mid thoracic spine. Bones: No fracture or bone lesion. Flowing anterior osteophytes are present along the right side of the spinal column from T3 to the lumbar spine, consistent with DISH. Disk spaces, central canal, and neural foramina: There is disk height loss throughout the mid thoracic spine. There is also apparent bony bridging across the disk spaces from T5-T6 through T8-T9, likely reflecting a solid bony fusion. No significant narrowing of the bony central canal. Facet hypertrophy results in mild to moderate narrowing of the neural foramina bilaterally at T10-T11. Musculature: Normal. No fatty atrophy. Other: Pacemaker is partially visualized. Hiatal hernia is present. Coarse calcifications are present in the right pleural space and pancreas are clear reflecting exposure to prior granulomatous disease. Prominent atherosclerotic calcifications are present in the major arteries. IMPRESSION: 1. No acute fracture or malalignment. 2. 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 3. No significant narrowing of the bony central canal. Facet hypertrophy results in mild to moderate narrowing of the neuroforamina bilaterally at T10-T11. RADIA
[2019-07-07 15:29] LABS: BILIRUBIN,URINE NEGATIVE (NEGATIVE); GLUCOSE, URINE (UA) >=1000 mg/dL (NEGATIVE); KETONES,URINE (UA) 15 mg/dL (NEGATIVE); LEUKOCYTE ESTERASE, URINE NEGATIVE (NEGATIVE); NITRITE,URINE NEGATIVE (NEGATIVE); OCCULT BLOOD,URINE TRACE-LYSE (NEGATIVE); PH,URINE 5.5 PH (5.0-7.5); PROTEIN,URINE 30 mg/dL (NEGATIVE); UROBILINOGEN,URINE 0.2 (NORMAL) E.U./dL (NORMAL)
[2019-07-07 15:41] LABS: CLARITY,URINE CLEAR (CLEAR)
[2019-07-07 15:47] LABS: BACTERIA,URINE Few /HPF (None Seen); MUCUS,URINE Moderate Strands; RBC,URINE 0-5 /HPF (0-5); SQUAMOUS EPITHELIAL CELL,UR FEW Squamous (<= Few)
[2019-07-07 16:05] VITALS: BP 112/85
== END 2019-07-07 16:05 | disposition home or self-care (01) ==
LOC: ED 11:09
DX: A04.72 Enterocolitis due to Clostridium difficile, not specified as recurrent (principal); R53.1 Weakness; S29.012A Strain of muscle and tendon of back wall of thorax, initial encounter; W01.0XXA Fall on same level from slipping, tripping and stumbling without subsequent striking against object, initial encounter; M25.78 Osteophyte, vertebrae; E11.9 Type 2 diabetes mellitus without complications; Z79.4 Long term (current) use of insulin
CPT/HCPCS: 36415; 72128; 80053; 81001; 81003; 83690; 83735; 85025; 87086; 96361; 96365; 96375; 99284

== ENCOUNTER 2019-07-11 10:51 | Outpatient (CLI) | payer MEDICARE, MEDICAID ==
--- NOTE | 2019-07-13 06:41 | XRAY Report ---
Reason: FOOT ULCER, LEFT, L97.529 Procedure Date: 07/11/2019 Accession Number: [id number] / [id number] Procedure: XRS - Foot 2 View LT CPT Code: FULL RESULT: EXAM: LEFT FOOT RADIOGRAPHY EXAM DATE: 07/11/2019 11:10 AM. CLINICAL HISTORY: FOOT ULCER, LEFT, L97. 529. COMPARISON: None. TECHNIQUE: 2 views. FINDINGS: Bones: Osteopenia. No fracture seen. No focal area of bone destruction identified. Joints: No dislocation seen. Minimal degenerative changes. Soft Tissues: Ulceration of the great toe. Soft tissue swelling. IMPRESSION: 1. Ulceration of the great toe. No definite bone destruction identified. RADIA
== END 2019-07-11 10:52 | disposition home or self-care (01) ==
LOC: DI.S 10:51
PROVIDERS: ATTEND Family Medicine
DX: L97.529 Non-pressure chronic ulcer of other part of left foot with unspecified severity (principal); M19.072 Primary osteoarthritis, left ankle and foot

== ENCOUNTER 2019-07-23 12:56 | Emergency (ER) | payer MEDICARE, MEDICAID ==
[2019-07-23] MEDS ORDERED: SODIUM CHLORIDE 0.9% 1,000 ML IV ONE (13:23)
--- NOTE | 2019-07-23 13:26 | ED Physician Documentation ---
History of Present Illness - Stated complaint Stated Complaint: DIZZY/LIGHT HEADED - Chief complaint Chief Complaint: General - History obtained from History obtained from: Patient - History of Present Illness Timing: Today (This is an 84-year-old gentleman with long-standing diabetes and neuropathy who presents from wound care clinic with low blood pressures. He recently had C. difficile and was treated initially with vancomycin, subsequently was on Flagyl. The diarrhea has abated. But he feels like he got dehydrated during that time. He also has a recent clinical diagnosis of osteomyelitis of the left great toe. Right now he is only on metronidazole, no antibiotics for the toe. He was being set up for infusion therapy. He had a recent culture of the toe which was reviewed. He denies fevers or chills. He is fatigued but he is eating well. He does have a productive cough. He was sent over from wound care clinic today because of the concern for blood pressures being as low as 70 systolic in the clinic. He is feeling weak and dizzy. Blood pressure on arrival here is better.) Review of Systems Ten Systems: 10 systems reviewed and negative Constitutional: reports: Fatigue. denies: Fever, Chills Cardiac: denies: Chest pain / pressure, Palpitations Respiratory: reports: Cough. denies: Dyspnea GI: reports: Diarrhea (Better now). denies: Abdominal Pain, Nausea, Vomiting Musculoskeletal: denies: Neck pain, Back pain PD PAST MEDICAL HISTORY - Past Medical History Past Medical History: Yes Cardiovascular: Coronary artery disease, Arrhythmia, Valve disorder Respiratory: None Neuro: None Endocrine/Autoimmune: Type 2 diabetes GI: None HEENT: Chronic hearing loss Psych: Depression Musculoskeletal: None Derm: None - Past Surgical History Past Surgical History: Yes Cardiovascular: CABG, Pacemaker HEENT: Cataracts - Present Medications Home Medications: Ambulatory Orders Medication Instructions Recorded Confirmed Insulin Glargine,Hum.rec.anlog 40 units SQ DAILY 05/27/15 07/23/19 [Lantus] Allopurinol 100 mg PO DAILY 03/30/18 07/23/19 metFORMIN [Glucophage] 500 mg PO TID 03/30/18 07/23/19 Calcium Carbonate/Vitamin D3 1 tab PO DAILY 06/11/19 07/23/19 [Caltrate 600 Plus D3 Tablet] Escitalopram Oxalate 5 mg PO DAILY 06/11/19 07/23/19 Furosemide [Lasix] 20 mg PO DAILY 06/11/19 07/23/19 Lisinopril [Zestril] 2.5 mg PO DAILY 06/11/19 07/23/19 Potassium Chloride [Micro-K] 5 meq PO DAILY 06/11/19 07/23/19 Hydrocodone/Acetaminophen [[place] 1 each PO Q6H PRN #20 tablet 07/07/19 07/23/19 5-325 Tablet] Metronidazole [Flagyl] 500 mg PO BID #20 tablet 07/07/19 07/23/19 Ondansetron Odt [Zofran] 4 mg TL Q6H PRN #15 tablet 07/07/19 07/23/19 Saccharomyces Boulardii [Florastor] 250 mg PO BID #20 capsule 07/07/19 07/23/19 - Allergies Allergies/Adverse Reactions: Allergies Allergy/AdvReac Type Severity Reaction Status Date / Time amoxicillin Allergy Unknown Verified 07/23/19 13:02 rosuvastatin [From Crestor] Allergy Unknown Verified 07/23/19 13:02 sertraline [From Zoloft] Allergy Unknown Verified 07/23/19 13:02 simvastatin Allergy Unknown Verified 07/23/19 13:02 Sulfa (Sulfonamide Allergy Unknown Verified 07/23/19 13:02 Antibiotics) penicillin * [penicillin] AdvReac Unknown Verified 07/23/19 13:02 Sulfonylureas AdvReac Unknown Verified 07/23/19 13:02 - Social History Does the pt smoke?: No Smoking Status: Never smoker Does the pt drink ETOH?: No Does the pt have substance abuse?: No - Immunizations Immunizations are current?: Yes - POLST Patient has POLST: No PD ED PE NORMAL - Vitals Vital signs reviewed: Yes - General General: Alert and oriented X 3, No acute distress - HEENT HEENT: PERRL, EOMI - Neck Neck: Supple, no meningeal sign, No bony TTP - Cardiac Cardiac: RRR, No murmur - Respiratory Respiratory: No respiratory distress, Other (Rhonchorous at the bases) - Abdomen Abdomen: Soft, Non tender - Back Back: No CVA TTP, No spinal TTP - Derm Derm: Normal color, Warm and dry - Extremities Extremities: Other (There is a small necrotic ulcer at the tip of the left great toe with some cellulitis tracking towards the first MTP.) - Neuro Neuro: Alert and oriented X 3, Normal speech Results - Vitals Vitals: Vital Signs - 24 hr 07/23/19 07/23/19 07/23/19 12:57 13:19 14:12 Temperature 36 C L Heart Rate 84 69 72 Respiratory 18 19 17 Rate Blood Pressure 108/51 L 121/90 H 119/75 O2 Saturation 99 99 100 07/23/19 14:31 Temperature Heart Rate 76 Respiratory 25 H Rate Blood Pressure 115/74 O2 Saturation 96 Oxygen O2 Source Room air - EKG (time done) 1304 Rate: Rate (enter#) (67) Rhythm: Paced (A-Sensed V paced) Computer interpretation: Agree with computer - Labs Labs: Laboratory Tests 07/23/19 07/23/19 07/23/19 13:04 13:04 13:04 WBC 10.7 RBC 4.57 L Hgb 13.9 L Hct 42.6 MCV 93.2 MCH 30.4 MCHC 32.6 RDW 15.2 H Plt Count 242 MPV 12.1 H Neut # (Auto) 7.3 H Lymph # (Auto) 1.8 [place] # (Auto) 0.8 Eos # (Auto) 0.7 Baso # (Auto) 0.1 Absolute Nucleated RBC 0.00 Nucleated RBC % 0.0 Sodium 137 Potassium 4.9 Chloride 102 Carbon Dioxide 24 Anion Gap 11.0 BUN 34 H Creatinine 1.5 H Estimated GFR (MDRD) 45 L Glucose 237 H Lactic Acid 2.1 Calcium 9.3 Total Bilirubin 0.4 AST 21 ALT 17 Alkaline Phosphatase 117 Total Protein 7.9 Albumin 3.9 Globulin 4.0 Albumin/Globulin Ratio 1.0 Lipase 30 - Rads (name of study) 2v chest Radiology: EMP read contemporaneously (Mild cardiomegaly and mild pulmonary vascular congestion. Atelectasis at the left lung base.) PD MEDICAL DECISION MAKING - ED course Complexity details: reviewed old records (Most recent culture dated July 20 was reviewed, he had light growth of enterococcus and light growth of Staphylococcus leg done enthesis. The enterococcus was sensitive to ampicillin and vancomycin, the Staphylococcus was pretty much pansensitive to everything they tested against.) ED course: 84-year-old gentleman had transient hypotension in the wound care clinic which was not corroborated here. There is a question of sepsis, but his labs do not suggest that he is septic. He does have the infection of the toe, but the wound care clinic is coordinating with infectious disease at the [facility] for home infusion therapy noting that the only option they tested for would be vancomycin, but that would be difficult for home infusion given its at least twice daily dosing. Departure - Departure Disposition: Home, Self Care Clinical Impression: Transient hypotension Open wound of left great toe Qualifiers: Encounter type: initial encounter Qualified Code(s): S91.102A - Unspecified open wound of left great toe without damage to nail, initial encounter Condition: Good Record reviewed to determine appropriate education?: Yes Instructions: Diabetic Foot Ulcer Dc Comments: The wound care clinic is coordinating with infectious disease at the [facility] to set up home infusion therapy. Return for new or worsening symptoms, if you have increased redness of the toe or fevers.
[2019-07-23 13:48] LABS: BASOPHILS # (AUTO) 0.1 10^3/uL (0.0-0.1); BASOPHILS % (AUTO) 0.9 %; EOSINOPHILS # (AUTO) 0.7 10^3/uL (0.0-0.7); EOSINOPHILS % (AUTO) 6.2 %; HGB - HEMOGLOBIN 13.9 g/dL (14.0-18.0); LYMPHOCYTES # (AUTO) 1.8 10^3/uL (1.5-3.5); LYMPHOCYTES % (AUTO) 16.7 %; MEAN CORPUSCULAR HEMOGLOBIN 30.4 pg (27.0-31.0); MEAN CORPUSCULAR HGB CONC 32.6 g/dL (32.0-36.0); MEAN CORPUSCULAR VOLUME 93.2 fL (80.0-94.0); MEAN PLATELET VOLUME 12.1 fL (7.4-11.4); MONOCYTES # (AUTO) 0.8 10^3/uL (0.0-1.0); MONOCYTES % (AUTO) 7.6 %; NEUTROPHILS # (AUTO) 7.3 10^3/uL (1.5-6.6); NEUTROPHILS % (AUTO) 68.1 %; PLT - PLATELET COUNT 242 10^3/uL (130-450); RED BLOOD COUNT 4.57 10^6/uL (4.70-6.10); RED CELL DISTRIBUTION WIDTH 15.2 % (12.0-15.0); WHITE BLOOD COUNT 10.7 x10^3/uL (4.8-10.8)
[2019-07-23 13:51] LABS: ALBUMIN 3.9 g/dL (3.2-5.5); BILIRUBIN,TOTAL 0.4 mg/dL (0.2-1.0); CALCIUM 9.3 mg/dL (8.5-10.3); CREATININE 1.5 mg/dL (0.6-1.2); TOTAL PROTEIN 7.9 g/dL (6.7-8.2)
--- NOTE | 2019-07-23 14:09 | XRAY Report ---
Reason: cough low BP Procedure Date: 07/23/2019 Accession Number: [id number] / [id number] Procedure: XR - Chest 2 View X-Ray CPT Code: 98734 FULL RESULT: EXAM: CHEST RADIOGRAPHY EXAM DATE: 07/23/2019 01:48 PM. CLINICAL HISTORY: Cough and hypotension. COMPARISON: None available. TECHNIQUE: 2 views. FINDINGS: Cardiac leads overlie the chest. Postoperative changes to the sternum and mediastinum. The heart is mildly enlarged. Calcified plaque in the thoracic aorta. Dual chamber mechanical cardiac device with device leads terminating in the right atrium and right ventricle. Mild central pulmonary vascular congestion. No consolidation, pleural effusion, or pneumothorax. Mild patchy/hazy opacities in the left lung base likely atelectasis. The bones are osteopenic. Moderate hiatal hernia. IMPRESSION: Mild cardiomegaly and mild central pulmonary vascular congestion. Mild patchy/hazy atelectasis in the left lung base. Moderate hiatal hernia. RADIA
[2019-07-23 15:08] VITALS: BP 134/54
== END 2019-07-23 15:36 | disposition home or self-care (01) ==
LOC: ED 12:56
DX: I95.9 Hypotension, unspecified (principal); L97.526 Non-pressure chronic ulcer of other part of left foot with bone involvement without evidence of necrosis; B95.2 Enterococcus as the cause of diseases classified elsewhere; B95.8 Unspecified staphylococcus as the cause of diseases classified elsewhere; E11.40 Type 2 diabetes mellitus with diabetic neuropathy, unspecified; E11.69 Type 2 diabetes mellitus with other specified complication; Z79.4 Long term (current) use of insulin
CPT/HCPCS: 36415; 71046; 80053; 83605; 83690; 85025; 87040; 93005; 96360; 99283

== ENCOUNTER 2019-07-25 08:57 | Day surgery (SDC) | payer MEDICARE, MEDICAID ==
--- NOTE | 2019-07-25 10:12 | ANESTHESIA PROCEDURE NOTE ---
Diagnosis: Osteomyelitis @ R great toe Procedure: PICC line placement @R basillic v. Consent for Procedure(s) Verified and Reviewed: Yes Height and Weight: Height 5 ft 10 in Body Mass Index 23.5 Allergies amoxicillin Allergy (Verified 07/23/19 13:02) Unknown rosuvastatin [From Crestor] Allergy (Verified 07/23/19 13:02) Unknown sertraline [From Zoloft] Allergy (Verified 07/23/19 13:02) Unknown simvastatin Allergy (Verified 07/23/19 13:02) Unknown Sulfa (Sulfonamide Antibiotics) Allergy (Verified 07/23/19 13:02) Unknown penicillin * [penicillin] Adverse Reaction (Verified 07/23/19 13:02) Unknown Sulfonylureas Adverse Reaction (Verified 07/23/19 13:02) Unknown Requesting Provider: ARLENE Boone Location: PACU ASA classification: 3-Severe systemic disease Is this case an emergency?: No Anes. Monitoring and Equipment: Central venous catheter, All ports aspirate blood, Sterile prep and drape Anes. Procedure Start Time: 09:30 Anes. Procedure Stop Time: 09:58 Procedure Notes: Pt Id'd, consent for procedure obtained. 5Fr dual lumen PICC placed at R basillic v. after sterile prep drape, gown, gloves, mask, hat. US used to access R basillic v attempt x1. Wire threaded easily, no ectopy (atrial pacemaker). Cath cut to 42 after elbow measurement. Threaded using tracing technology but unable to utilize for placement as atrial pacemaker interferes. Tracing technology shows 42 cm residing within the desired location below sensor, (requires PCXR to confirm). After ports/cap x2 aspirate and flush easily, cath secured with Stat lock and tegaderm. PICC line confirmed with PCXR. Tip resides at cavo-atrial junction. OK to use PICC.
--- NOTE | 2019-07-25 10:24 | XRAY Report ---
Reason: post PICC line placement Procedure Date: 07/25/2019 Accession Number: [id number] / [id number] Procedure: XR - Chest for Line Placement CPT Code: FULL RESULT: EXAM: CHEST RADIOGRAPHY EXAM DATE: 07/25/2019 10:09 AM. CLINICAL HISTORY: Post PICC line placement. COMPARISON: CHEST 2 VIEW 07/23/2019 1:27 PM. TECHNIQUE: 1 view. FINDINGS: Lungs/Pleura: No focal opacities evident. No pleural effusion. No pneumothorax. Mediastinum: Hiatal hernia again seen. Prior sternotomy and left subclavian dual-lead pacemaker. Other: New right arm PICC with tip at the SVC/RA junction. IMPRESSION: New right arm PICC, appropriate position of tip. Otherwise no change. RADIA
== END 2019-07-25 08:58 | disposition home or self-care (01) ==
LOC: SDS 08:57
PROVIDERS: ATTEND Registered Nurse
PROC: 02HV33Z Insertion of Infusion Device into Superior Vena Cava, Percutaneous Approach (ICD-10-PCS; principal; 2019-07-25 09:00)
DX: M86.172 Other acute osteomyelitis, left ankle and foot (principal); Z95.0 Presence of cardiac pacemaker
CPT/HCPCS: 36569; C1751; 71045

== ENCOUNTER 2019-07-28 08:00 | Outpatient (CLI) | payer MEDICARE, MEDICAID ==
[2019-07-28 15:17] LABS: CALCIUM 8.8 mg/dL (8.5-10.3); CREATININE 1.6 mg/dL (0.6-1.2)
== END 2019-07-28 23:59 | disposition home or self-care (01) ==
LOC: LAB.R 08:00
PROVIDERS: ATTEND Internal Medicine Nephrology
DX: N05.9 Unspecified nephritic syndrome with unspecified morphologic changes (principal)
CPT/HCPCS: 80048

== ENCOUNTER 2019-07-30 14:13 | Outpatient (CLI) | payer MEDICARE, MEDICAID | END 2019-07-30 14:14 | disposition EMS.NT | LOC: EMS 14:13 | PROVIDERS: ATTEND Surgery | DX: Z03.89 Encounter for observation for other suspected diseases and conditions ruled out (principal) ==

== ENCOUNTER 2019-08-16 21:16 | Outpatient (CLI) | payer MEDICARE, MEDICAID | END 2019-08-16 21:17 | disposition critical access hospital (66) | LOC: EMS 21:16 | PROVIDERS: ATTEND Surgery | DX: R53.1 Weakness (principal) | CPT/HCPCS: A0425; A0429 ==

== ENCOUNTER 2019-08-16 21:48 | Inpatient (IN) | payer MEDICARE, MEDICAID ==
--- NOTE | 2019-08-16 22:06 | ED Physician Documentation ---
History of Present Illness - Stated complaint Stated Complaint: GLF, WEAKNESS - Chief complaint Chief Complaint: Neuro - History obtained from History obtained from: Patient, EMS - History of Present Illness Timing: Today Pain level now: 0 Improved by: rest Worsened by: standing, trying to ambulate - Additonal information Additional information: BIBA for generalized weakness. Patient lives alone, activated his Life Alert after being too weak to stand up for several hours. Patient says he had "toe surgery" yesterday, but unable to tell me what the procedure entailed. He says he was prescribed pain medication of which he took one tablet last night approximately 1 hour prior to getting into bed. He says he took 2 this morning. EMS brought his medications with patient to ED, and there is an rx for percocet of which three are missing. Patient says he has had generalized weakness since this morning, although it is unclear as to the timing of the medication and symptom onset. 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 He had to sit on the floor and "had to scoot around" on the floor due to being too weak to get back up. He eventually activated his Life Alert for this weakness. Review of Systems Constitutional: reports: Fatigue. denies: Fever, Chills, Sweats Cardiac: reports: Reviewed and negative Respiratory: reports: Reviewed and negative GI: reports: Reviewed and negative : denies: Dysuria, Frequency Neurologic: reports: Generalized weakness, Confused. denies: Focal weakness, Numbness, Headache PD PAST MEDICAL HISTORY - Past Medical History Cardiovascular: Coronary artery disease, Arrhythmia, Valve disorder Respiratory: None Neuro: None Endocrine/Autoimmune: Type 2 diabetes GI: None HEENT: Chronic hearing loss Psych: Depression Musculoskeletal: None Derm: None - Past Surgical History Past Surgical History: Yes Cardiovascular: CABG, Pacemaker HEENT: Cataracts - Present Medications Home Medications: Ambulatory Orders Medication Instructions Recorded Confirmed Insulin Glargine,Hum.rec.anlog 40 units SQ DAILY 05/27/15 08/17/19 [Lantus] metFORMIN [Glucophage] 500 mg PO TID 03/30/18 08/17/19 Calcium Carbonate/Vitamin D3 1 tab PO BID 06/11/19 08/17/19 [Caltrate 600 Plus D3 Tablet] Escitalopram Oxalate 5 mg PO DAILY 06/11/19 08/17/19 Furosemide [Lasix] 20 mg PO DAILY 06/11/19 08/17/19 Lisinopril [Zestril] 2.5 mg PO DAILY 06/11/19 08/17/19 Potassium Chloride [Micro-K] 10 meq PO DAILY 06/11/19 07/23/19 Oxycodone HCl/Acetaminophen 10 mg PO Q6HR PRN 08/16/19 08/16/19 [Percocet 10-325 mg Tablet] Allopurinol 100 mg PO DAILY 08/17/19 08/17/19 - Allergies Allergies/Adverse Reactions: Allergies Allergy/AdvReac Type Severity Reaction Status Date / Time amoxicillin Allergy Unknown Verified 08/16/19 22:19 rosuvastatin [From Crestor] Allergy Unknown Verified 08/16/19 22: sertraline [From Zoloft] Allergy Unknown Verified 08/16/19 22:19 simvastatin Allergy Unknown Verified 08/16/19 22:19 Sulfa (Sulfonamide Allergy Unknown Verified 08/16/19 22:19 Antibiotics) penicillin * [penicillin] AdvReac Unknown Verified 08/16/19 22:19 Sulfonylureas AdvReac Unknown Verified 08/16/19 22:19 - Social History Does the pt smoke?: No Smoking Status: Never smoker Does the pt drink ETOH?: No Does the pt have substance abuse?: No - Immunizations Immunizations are current?: Yes - POLST Patient has POLST: No PD ED PE NORMAL - Vitals Vital signs reviewed: Yes - General General: Alert and oriented X 3 (awake and alert. 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 Eye Opening: Spontaneous Motor: Obeys Commands Verbal: Oriented GCS Score: 15 Results - Vitals Vitals: Vital Signs - 24 hr 08/16/19 08/16/19 08/17/19 21:52 23:56 01:00 Temperature 36.7 C Heart Rate 81 74 77 Heart Rate [ Brachial] Heart Rate [ Sitting] Heart Rate [ Standing] Heart Rate [ Supine] Respiratory 12 17 14 Rate Respiratory Rate [Without Activity] Blood Pressure 110/95 H 100/62 131/72 H Blood Pressure [Left Brachial artery] Blood Pressure [Sitting] Blood Pressure [Standing] Blood Pressure [Supine] O2 Saturation 96 100 97 O2 Saturation [ With Activity] O2 Saturation [ Without Activity] 08/17/19 08/17/19 08/17/19 03:08 06:00 07:42 Temperature 37.1 C 37.5 C Heart Rate 92 Heart Rate [ 95 62 Brachial] Heart Rate [ Sitting] Heart Rate [ Standing] Heart Rate [ Supine] Respiratory 20 18 18 Rate Respiratory Rate [Without Activity] Blood Pressure 110/57 L Blood Pressure 106/60 105/63 [Left Brachial artery] Blood Pressure [Sitting] Blood Pressure [Standing] Blood Pressure [Supine] O2 Saturation 100 95 95 O2 Saturation [ With Activity] O2 Saturation [ Without Activity] 08/17/19 08/17/19 08/17/19 10:30 13:18 13:44 Temperature 37.0 C Heart Rate Heart Rate [ 71 Brachial] Heart Rate [ 92 Sitting] Heart Rate [ 91 Standing] Heart Rate [ 88 Supine] Respiratory 20 Rate Respiratory 18 Rate [Without Activity] Blood Pressure Blood Pressure 76/48 L 86/52 L [Left Brachial artery] Blood Pressure 89/66 L [Sitting] Blood Pressure 100/58 L [Standing] Blood Pressure 108/65 [Supine] O2 Saturation 99 O2 Saturation [ 94 With Activity] O2 Saturation [ 95 Without Activity] 08/17/19 08/17/19 08/17/19 13:58 14:03 14:37 Temperature Heart Rate Heart Rate [ 71 75 Brachial] Heart Rate [ Sitting] Heart Rate [ Standing] Heart Rate [ Supine] Respiratory Rate Respiratory Rate [Without Activity] Blood Pressure Blood Pressure 89/52 L 92/52 L 86/51 L [Left Brachial artery] Blood Pressure [Sitting] Blood Pressure [Standing] Blood Pressure [Supine] O2 Saturation O2 Saturation [ With Activity] O2 Saturation [ Without Activity] 08/17/19 08/17/19 08/17/19 15:38 15:39 15:40 Temperature 36.7 C Heart Rate Heart Rate [ 65 Brachial] Heart Rate [ Sitting] Heart Rate [ Standing] Heart Rate [ Supine] Respiratory 17 Rate Respiratory Rate [Without Activity] Blood Pressure Blood Pressure 76/38 L 82/27 L 82/42 L [Left Brachial artery] Blood Pressure [Sitting] Blood Pressure [Standing] Blood Pressure [Supine] O2 Saturation 97 O2 Saturation [ With Activity] O2 Saturation [ Without Activity] 08/17/19 18:00 Temperature Heart Rate Heart Rate [ 79 Brachial] Heart Rate [ Sitting] Heart Rate [ Standing] Heart Rate [ Supine] Respiratory Rate Respiratory Rate [Without Activity] Blood Pressure Blood Pressure 91/70 [Left Brachial artery] Blood Pressure [Sitting] Blood Pressure [Standing] Blood Pressure [Supine] O2 Saturation O2 Saturation [ With Activity] O2 Saturation [ Without Activity] Oxygen O2 Source [With Activity] Room air O2 Source [Without Activity] Room air O2 Source Room air - EKG (time done) No standard instances Rate: Rate (enter#) (81) Rhythm: Paced [place]: LAD - Labs Labs: Laboratory Tests 08/16/19 08/16/19 08/16/19 22:02 22:02 22:40 WBC 16.3 H RBC 3.84 L Hgb 11.6 L Hct 36.2 L MCV 94.3 H MCH 30.2 MCHC 32.0 RDW 14.0 Plt Count 244 MPV 12.3 H Neut # (Auto) 14.0 H Lymph # (Auto) 0.9 L [place] # (Auto) 1.0 Eos # (Auto) 0.3 Baso # (Auto) 0.1 Absolute Nucleated RBC 0.00 Nucleated RBC % 0.0 Sodium 135 Potassium 5.2 H Chloride 101 Carbon Dioxide 23 Anion Gap 11.0 BUN 29 H Creatinine 1.4 H Estimated GFR (MDRD) 48 L Glucose 332 H Glycated Hemoglobin Estim Average Glucose Lactic Acid 1.3 Calcium 8.6 Phosphorus 2.2 L Magnesium 2.1 Total Bilirubin 0.8 AST 18 ALT 16 Alkaline Phosphatase 88 Troponin I High Sens C-Reactive Protein Total Protein 6.8 Albumin 3.4 Globulin 3.4 Albumin/Globulin Ratio 1.0 Lipase 19 L Vitamin B12 Folate Urine Color Urine Clarity Urine pH Ur Specific [place] Urine Protein Urine Glucose (UA) Urine Ketones Urine Occult Blood Urine Nitrite Urine Bilirubin Urine Urobilinogen Ur Leukocyte Esterase Ur Microscopic Review Urine Culture Comments 08/17/19 08/17/19 08/17/19 01:50 05:15 05:15 WBC 18.6 H RBC 3.80 L Hgb 11.6 L Hct 35.6 L MCV 93.7 MCH 30.5 MCHC 32.6 RDW 13.8 Plt Count 252 MPV 10.9 Neut # (Auto) 15.9 H Lymph # (Auto) 0.9 L [place] # (Auto) 1.4 H Eos # (Auto) 0.2 Baso # (Auto) 0.1 Absolute Nucleated RBC 0.00 Nucleated RBC % 0.0 Sodium 135 Potassium 4.8 Chloride 100 L Carbon Dioxide 24 Anion Gap 11.0 BUN 29 H Creatinine 1.4 H Estimated GFR (MDRD) 48 L Glucose 286 H Glycated Hemoglobin Estim Average Glucose Lactic Acid Calcium 8.5 Phosphorus 2.2 L Magnesium 2.0 Total Bilirubin AST ALT Alkaline Phosphatase Troponin I High Sens C-Reactive Protein Total Protein Albumin Globulin Albumin/Globulin Ratio Lipase Vitamin B12 Folate Urine Color YELLOW Urine Clarity CLEAR Urine pH 5.5 Ur Specific [place] 1.020 Urine Protein NEGATIVE Urine Glucose (UA) >=1000 H Urine Ketones 15 H Urine Occult Blood NEGATIVE Urine Nitrite NEGATIVE Urine Bilirubin NEGATIVE Urine Urobilinogen 0.2 (NORMAL) Ur Leukocyte Esterase NEGATIVE Ur Microscopic Review NOT INDICATED Urine Culture Comments NOT INDICATED 08/17/19 08/17/19 08/17/19 05:15 14:21 17:00 WBC RBC Hgb Hct MCV MCH MCHC RDW Plt Count MPV Neut # (Auto) Lymph # (Auto) [place] # (Auto) Eos # (Auto) Baso # (Auto) Absolute Nucleated RBC Nucleated RBC % Sodium Potassium Chloride Carbon Dioxide Anion Gap BUN Creatinine Estimated GFR (MDRD) Glucose Glycated Hemoglobin 8.6 H Estim Average Glucose 200 H Lactic Acid 1.2 Calcium Phosphorus Magnesium Total Bilirubin AST ALT Alkaline Phosphatase Troponin I High Sens C-Reactive Protein Total Protein Albumin Globulin Albumin/Globulin Ratio Lipase Vitamin B12 707 Folate 8.63 Urine Color Urine Clarity Urine pH Ur Specific [place] Urine Protein Urine Glucose (UA) Urine Ketones Urine Occult Blood Urine Nitrite Urine Bilirubin Urine Urobilinogen Ur Leukocyte Esterase Ur Microscopic Review Urine Culture Comments 08/17/19 08/17/19 17:00 17:00 WBC RBC Hgb Hct MCV MCH MCHC RDW Plt Count MPV Neut # (Auto) Lymph # (Auto) [place] # (Auto) Eos # (Auto) Baso # (Auto) Absolute Nucleated RBC Nucleated RBC % Sodium Potassium Chloride Carbon Dioxide Anion Gap BUN Creatinine Estimated GFR (MDRD) Glucose Glycated Hemoglobin Estim Average Glucose Lactic Acid Calcium Phosphorus Magnesium Total Bilirubin AST ALT Alkaline Phosphatase Troponin I High Sens 4100.5 H* C-Reactive Protein 9.3 H Total Protein Albumin Globulin Albumin/Globulin Ratio Lipase Vitamin B12 Folate Urine Color Urine Clarity Urine pH Ur Specific [place] Urine Protein Urine Glucose (UA) Urine Ketones Urine Occult Blood Urine Nitrite Urine Bilirubin Urine Urobilinogen Ur Leukocyte Esterase Ur Microscopic Review Urine Culture Comments - Rads (name of study) chest xray Radiology: Prelim report reviewed, See rad report CT head Radiology: Prelim report reviewed, See rad report PD MEDICAL DECISION MAKING - ED course Complexity details: reviewed results, re-evaluated patient, considered differential, d/w patient Departure - Departure Disposition: ED Place in Observation Clinical Impression: Generalized weakness Condition: Stable Discharge Date/Time: 08/17/19 05:52
[2019-08-16 22:40] LABS: BASOPHILS # (AUTO) 0.1 10^3/uL (0.0-0.1); BASOPHILS % (AUTO) 0.5 %; EOSINOPHILS # (AUTO) 0.3 10^3/uL (0.0-0.7); EOSINOPHILS % (AUTO) 1.7 %; HGB - HEMOGLOBIN 11.6 g/dL (14.0-18.0); LYMPHOCYTES # (AUTO) 0.9 10^3/uL (1.5-3.5); LYMPHOCYTES % (AUTO) 5.2 %; MEAN CORPUSCULAR HEMOGLOBIN 30.2 pg (27.0-31.0); MEAN CORPUSCULAR VOLUME 94.3 fL (80.0-94.0); MEAN PLATELET VOLUME 12.3 fL (7.4-11.4); MONOCYTES % (AUTO) 5.9 %; PLT - PLATELET COUNT 244 10^3/uL (130-450); RED BLOOD COUNT 3.84 10^6/uL (4.70-6.10); WHITE BLOOD COUNT 16.3 x10^3/uL (4.8-10.8)
[2019-08-16 22:50] LABS: ALBUMIN 3.4 g/dL (3.2-5.5); BILIRUBIN,TOTAL 0.8 mg/dL (0.2-1.0); CALCIUM 8.6 mg/dL (8.5-10.3); CREATININE 1.4 mg/dL (0.6-1.2); MAGNESIUM 2.1 mg/dL (1.7-2.8); PHOSPHORUS 2.2 mg/dL (2.5-4.6); TOTAL PROTEIN 6.8 g/dL (6.7-8.2)
--- NOTE | 2019-08-16 23:12 | CT Report ---
Reason: weakness, AMS Procedure Date: 08/16/2019 Accession Number: [id number] / [id number] Procedure: CT - HEAD WO CPT Code: FULL RESULT: EXAM: CT HEAD EXAM DATE: 08/16/2019 10:56 PM. CLINICAL HISTORY: Weakness, AMS. COMPARISON: BRAIN W/O 05/27/2015 3:38 PM. TECHNIQUE: Multiaxial CT images were obtained from the foramen magnum to the vertex. Reformats: Sagittal and coronal. IV contrast: None. In accordance with CT protocol optimization, one or more of the following dose reduction techniques were utilized for this exam: automated exposure control, adjustment of mA and/or KV based on patient size, or use of iterative reconstructive technique. FINDINGS: Parenchyma: No intraparenchymal hemorrhage. No evidence of mass, midline shift, or CT findings of acute infarction. [place]-white differentiation is distinct. Diffuse chronic microangiopathic white matter changes are evident. Extraaxial Spaces: Normal for age. No subdural or epidural collections identified. Ventricles: The ventricles and cortical sulci are enlarged, consistent with age-related tissue loss. Sinuses and orbits: Chronic sinus disease. No air-fluid levels. The visualized intraorbital contents are unremarkable. Bones: No evidence of fracture or calvarial defect. Other: None. IMPRESSION: Generalized age-related cortical atrophic changes without evidence of acute intracranial abnormality. Chronic sinus disease. RADIA
--- NOTE | 2019-08-16 23:14 | XRAY Report ---
Reason: weakness Procedure Date: 08/16/2019 Accession Number: [id number] / [id number] Procedure: XR - Chest 2 View X-Ray CPT Code: 06301 FULL RESULT: EXAM: CHEST RADIOGRAPHY EXAM DATE: 08/16/2019 10:59 PM. CLINICAL HISTORY: Weakness. COMPARISON: CHEST FOR LINE PLACEMENT 07/25/2019 9:56 AM. TECHNIQUE: 2 views. FINDINGS: Lungs/Pleura: Mild pulmonary vascular congestion. Trace effusions. No pneumothorax. Mediastinum: Cardiomegaly. Postoperative changes of cardiac surgery. Hiatal hernia. Stable pacemaker. Other: Right arm PICC terminating in the distal superior vena cava. IMPRESSION: Right arm PICC terminating in the distal superior vena cava. Mild congestive changes. RADIA
[2019-08-17 02:03] LABS: BILIRUBIN,URINE NEGATIVE (NEGATIVE); CLARITY,URINE CLEAR (CLEAR); GLUCOSE, URINE (UA) >=1000 mg/dL (NEGATIVE); KETONES,URINE (UA) 15 mg/dL (NEGATIVE); LEUKOCYTE ESTERASE, URINE NEGATIVE (NEGATIVE); NITRITE,URINE NEGATIVE (NEGATIVE); OCCULT BLOOD,URINE NEGATIVE (NEGATIVE); PH,URINE 5.5 PH (5.0-7.5); PROTEIN,URINE NEGATIVE (NEGATIVE); UROBILINOGEN,URINE 0.2 (NORMAL) E.U./dL (NORMAL)
[2019-08-17] MEDS ORDERED: ONDANSETRON 4 MG/2 ML VIAL IVP PRN (05:02)
[2019-08-17] MEDS ORDERED: CALCIUM CARBONATE CHEW 500 MG TABLET PO PRN (05:07)
--- NOTE | 2019-08-17 05:21 | HISTORY & PHYSICAL EXAMINATION ---
Chief Complaint - Chief Complaint Chief Complaint: Weakness History of Present Illness - Admitted From Admitted From:: Home - History Obtained From Records Reviewed: Yes History obtained from: Patient, ER Physician, EMR Exam Limitations: Patient appears to have a degree of cognitive impairment - History of Present Illness HPI Comment/Other: This is a 84 year old male with a past medical history significant for diabetes mellitus type 2, chronic renal insufficiency, and CHFrEF who presents from home after feeling weak. He tells me that he has been undergoing debridements of his left great toe every other day this past week. He was given Percocet this past Sunday and he took one tablet that night. Yesterday morning he took two tablets around breakfast time and he states that he had a reaction to the medication and that became weak and his knees were giving out. He reports that he did not fall but helped himself to the ground. He denied loss of consciousness and head trauma. He pressed his left alert button and EMS arrived. He does not have any complaints except for feeling weak at this time. He denies fever, cough, dyspnea, chest pain, dysuria. He is concerned about going home as he feels he may not be able to take care of himself. He does have a friend who checks on him up to four times a week. He believes he has become intermittently confused at times and that this has been going on for over a year. He has been receiving IV antibiotics for the past two months for an infected left greater toe. He does n ot know what antibiotics he is receiving. While in the ER, he continued to feel weak and was unable to ambulate. He did not feel safe to go home as cannot care for himself. Labs were significant for a leukocytosis with a left shift. Urinalysis and chest x-ray were unremarkable. Medicine was consulted for admission given his ongoing weakness and possible acute cognitive impairment. Of note, I did discuss code status with the patient. He told me that he had CPR a few years ago after heart surgery. He does not want to go through that again and would like to be a DNR. History - Past Medical History Cardiovascular: reports: Congestive heart failure, Coronary artery disease, Arrhythmia, Valve disorder Respiratory: reports: None Neuro: reports: None Endocrine/Autoimmune: reports: Type 2 diabetes GI: reports: None : reports: Renal insuffiency HEENT: reports: Chronic hearing loss Psych: reports: Depression Musculoskeletal: reports: None Derm: reports: None MRSA Hx?: No Other Past Medical History: Chronic hypotension - Past Surgical History Cardiovascular: reports: CABG, Pacemaker HEENT: reports: Cataracts - Family & Social History Family History Comment/Other: He reports that his father and brother were "dry alcoholics" and that they had emotional problems. Does not report any other family history. Living arrangement: At home Living Situation: Alone Social History Notes: He lives at home alone. He does have a caregiver who checks on him up to four times a week and drives him to appointments. He does not smoke or drink alcohol. - Substance History Use: Uses substance without health or social issues: NONE - POLST Patient has POLST: No Meds/Allgy - Home Medications Home Medications: Ambulatory Orders Medication Instructions Recorded Confirmed Insulin Glargine,Hum.rec.anlog 40 units SQ DAILY 05/27/15 07/23/19 [Lantus] Allopurinol 100 mg PO DAILY 03/30/18 07/23/19 metFORMIN [Glucophage] 500 mg PO TID 03/30/18 07/23/19 Calcium Carbonate/Vitamin D3 1 tab PO DAILY 06/11/19 07/23/19 [Caltrate 600 Plus D3 Tablet] Escitalopram Oxalate 5 mg PO DAILY 06/11/19 07/23/19 Furosemide [Lasix] 20 mg PO DAILY 06/11/19 07/23/19 Lisinopril [Zestril] 2.5 mg PO DAILY 06/11/19 07/23/19 Potassium Chloride [Micro-K] 10 meq PO DAILY 06/11/19 07/23/19 Metronidazole [Flagyl] 500 mg PO BID #20 tablet 07/07/19 07/23/19 Saccharomyces Boulardii [Florastor] 250 mg PO BID #20 capsule 07/07/19 07/23/19 Oxycodone HCl/Acetaminophen 10 mg PO Q6HR PRN 08/16/19 08/16/19 [Percocet 10-325 mg Tablet] - Allergies Allergies/Adverse Reactions: Allergies Allergy/AdvReac Type Severity Reaction Status Date / Time amoxicillin Allergy Unknown Verified 08/16/19 22:19 rosuvastatin [From Crestor] Allergy Unknown Verified 08/16/19 22:19 sertraline [From Zoloft] Allergy Unknown Verified 08/16/19 22:19 simvastatin Allergy Unknown Verified 08/16/19 22:19 Sulfa (Sulfonamide Allergy Unknown Verified 08/16/19 22:19 Antibiotics) penicillin * [penicillin] AdvReac Unknown Verified 08/16/19 22:19 Sulfonylureas AdvReac Unknown Verified 08/16/19 22:19 Review of Systems - Constitutional Constitutional: reports: Weakness. denies: Fever, Chills - Cardiovascular Cariovascular: reports: Edema. denies: Chest pain, Exertional dyspnea, Decr. exercise tolerance - Respiratory Respiratory: reports: Cough. denies: SOB at rest, SOB with exertion - Gastrointestinal Gastrointestinal: denies: Abdominal distention, Nausea, Vomiting - Genitourinary Genitourinary: denies: Dysuria - Musculoskeletal Musculoskeletal: denies: Muscle weakness - Integumentary Integumentary: reports: Other (Wound on his left foot). denies: Rash - Neurological Neurological: reports: General weakness. denies: Focal weakness - All Other Systems All Other Systems: reports: Reviewed and negative Prior Level of Functionality: Independent with ADL's. Ambulates with a walker at baseline. Exam - Vital Signs Reviewed Vital Signs: Yes Vital Signs: Vital Signs x48h Temp Pulse Resp BP Pulse Ox 08/17/19 03:08 92 20 110/57 L 100 08/17/19 01:00 77 14 131/72 H 97 08/16/19 23:56 74 17 100/62 100 08/16/19 21:52 36.7 C 81 12 110/95 H 96 - Physical Exam General Appearance: positive: No acute distress, Alert Eyes Bilateral: positive: Normal inspection, Conjunctivae nml ENT: positive: ENT inspection nml Neck: positive: Nml inspection Respiratory: positive: No respiratory distress, Other (Diminished breath sounds bilaterally). negative: Wheezes, Rales Cardiovascular: positive: Regular rate & rhythm, Other (Pacemaker in place over the left chest wall.). negative: Tachycardia, Bradycardia, Systolic murmur, Diastolic murmur Abdomen: positive: Non-tender, No distention. negative: Tenderness, Guarding, Rebound Skin: positive: Color nml, No rash, Warm, Dry, Other (Dressing in place over his left toe) Extremities: positive: Non-tender, Full ROM, No pedal edema Neurologic/Psychiatric: positive: Other (No focal motor deficits. Oriented to self and location. Oriented to year but initially thought it was the beginning of July.). negative: Disoriented to person, Disoriented to place Conclusion/Plan - Problem List (1) Generalized weakness Conclusion/Plan: Differential is broad at this time including possible infection, reaction to opiates, possible NPH. No obvious source of infection at this time although his white count is elevated. Will hold his opiates given he believes that his symptoms began after he starting taking Hydrocodone. Last MRI was concerning for NPH and this may explain his cognitive impairment and his weakness. Will repeat MRI of the brain if he remains hospitalized until Sunday and other etiologies are ruled out. If MRI is concerning for NPH, he will require a LP. Will consult PT/OT. He may ultimately require a SNF on discharge. (2) Leukocytosis Conclusion/Plan: He has a white count of 16 with a left a shift. Urinalysis and chest x-ray are unremarkable. He has been receiving IV antibiotics for an infection of his left greater toe. Will trend white count for now. If continues to rise, will obtain blood cultures. Will confirm antibiotics with [facility] and continue them. (3) Cognitive impairment Conclusion/Plan: It appears he has some degree of cognitive impairment although it is not clear if this is acute or chronic. This may be secondary to an infection given his leukocytosis although no source at this time except possibly his left greater toe. Prior MRI of the brain was concerning for CVA and encephalomalcia so he may possibly have vascular dementia. MRI at that time was also concerning for NPH. Will check B12 and Folate to rule out vitamin deficiency as cause. OT consult for assessment of cognitive impairment. Rule out infection. (4) Open wound of left great toe Conclusion/Plan: He has this wound for which he has been undergoing debridements at the [facility] and receiving IV antibiotics. He does not know which antibiotics and for how long he has been receiving them and for what. Suspect he may have osteomyelitis but will need to confirm with the [facility] clinic. Will resume an tibiotics once they are confirmed. Will consult wound care for evaluation. Qualifiers: Encounter type: initial encounter Qualified Code(s): S91.102A - Unspecified open wound of left great toe without damage to nail, initial encounter (5) Chronic HFrEF (heart failure with reduced ejection fraction) Conclusion/Plan: His last Echo revealed an EF of 25%. He is not in exacerbation and appears euvolemic. Will resume home Lisinopril. Will restart Lasix after he gently hydrated. (6) Type 2 diabetes mellitus with hyperglycemia, with long-term current use of insulin Conclusion/Plan: Presented with hyperglycemia an BG >300. Will continue home Lantus while hospita lized. Hold home metformin. CC diet. (7) Chronic renal insufficiency, stage III (moderate) Conclusion/Plan: This is likely secondary to his diabetes. Creatinine is stable at his baseline of 1.4. Will continue home Lisinopril. - Lab Results Lab results reviewed: Yes Fish Bones: 08/17/19 05:15 08/17/19 05:15 - Diagnostic Imaging Results Diagnostic Imaging Results: positive: Final report reviewed Core Measures - Anticipated LOS I expect patient to be DC'd or transferred within 96 hours.: Yes - Issues Hospital Issues and Management Plan: Admitted for fall and delirium. Will need to rule out infection and have him evaluated by PT/OT. - DVT/VTE - Prophylaxis VTE/DVT Device ordered at admit?: Yes VTE/DVT Prophylaxis med ordered at admit?: Yes
[2019-08-17 05:31] LABS: BASOPHILS # (AUTO) 0.1 10^3/uL (0.0-0.1); BASOPHILS % (AUTO) 0.5 %; EOSINOPHILS # (AUTO) 0.2 10^3/uL (0.0-0.7); EOSINOPHILS % (AUTO) 0.9 %; HGB - HEMOGLOBIN 11.6 g/dL (14.0-18.0); LYMPHOCYTES # (AUTO) 0.9 10^3/uL (1.5-3.5); MEAN CORPUSCULAR HEMOGLOBIN 30.5 pg (27.0-31.0); MEAN CORPUSCULAR HGB CONC 32.6 g/dL (32.0-36.0); MEAN CORPUSCULAR VOLUME 93.7 fL (80.0-94.0); MEAN PLATELET VOLUME 10.9 fL (7.4-11.4); MONOCYTES # (AUTO) 1.4 10^3/uL (0.0-1.0); MONOCYTES % (AUTO) 7.6 %; NEUTROPHILS # (AUTO) 15.9 10^3/uL (1.5-6.6); NEUTROPHILS % (AUTO) 85.2 %; PLT - PLATELET COUNT 252 10^3/uL (130-450); RED CELL DISTRIBUTION WIDTH 13.8 % (12.0-15.0); WHITE BLOOD COUNT 18.6 x10^3/uL (4.8-10.8)
[2019-08-17 05:46] LABS: CALCIUM 8.5 mg/dL (8.5-10.3); CREATININE 1.4 mg/dL (0.6-1.2); PHOSPHORUS 2.2 mg/dL (2.5-4.6)
[2019-08-17] MEDS ORDERED: SODIUM CHLORIDE FLUSH 0.9% 10 ML SYRINGE ONE (06:07)
[2019-08-17] MEDS ORDERED: LACTATED RINGERS 1,000 ML IV ONE (06:07)
[2019-08-17 06:12] LABS: FOLATE 8.63 ng/mL (5.90 - >24.8)
[2019-08-17] MEDS: LACTATED RINGERS 1,000 ML IV SCH ×2 (06:32→14:44)
[2019-08-17] MEDS: LISINOPRIL 5 MG TABLET PO SCH (08:29)
[2019-08-17] MEDS: ALLOPURINOL 100 MG TABLET PO SCH (08:29)
[2019-08-17] MEDS: ESCITALOPRAM 10 MG TABLET PO SCH (08:30)
[2019-08-17] MEDS: SODIUM CHLORIDE FLUSH 0.9% 10 ML SYRINGE IVP SCH ×3 (08:32→23:22)
[2019-08-17] MEDS: INSULIN GLARGINE 300 UNIT/3 ML PEN SUBQ SCH (08:32)
[2019-08-17] MEDS ORDERED: HEPARIN 5,000 UNIT/ML VIAL SUBQ SCH (09:00)
[2019-08-17] MEDS ORDERED: INSULIN GLARGINE HUM REC ANLOG 40 UNIT SQ SCH (11:30)
[2019-08-17] MEDS: INSULIN ASPART 300 UNIT/3 ML PEN SUBQ SCH ×3 (11:51→21:19)
[2019-08-17] MEDS: ACETAMINOPHEN 325 MG TABLET PO PRN (11:52)
[2019-08-17] MEDS ORDERED: LISINOPRIL 5 MG TABLET PO SCH (12:00)
[2019-08-17] MEDS ORDERED: FUROSEMIDE 20 MG TABLET PO SCH (12:00)
[2019-08-17] MEDS ORDERED: ALLOPURINOL 100 MG TABLET PO SCH (12:00)
[2019-08-17] MEDS ORDERED: ESCITALOPRAM 10 MG TABLET PO SCH (12:00)
[2019-08-17] MEDS ORDERED: SODIUM CHLORIDE 0.9% 500 ML IV ONE (13:27)
[2019-08-17] MEDS: LORATADINE 10 MG TABLET PO SCH (13:38)
[2019-08-17 15:03] LABS: HB2 TOTAL 10.7 g/dL; HEMOGLOBIN A1C 0.76 g/dL; HEMOGLOBIN A1C % 8.6 % (4.6-6.2)
[2019-08-17] MEDS: SODIUM CHLORIDE FLUSH 0.9% 10 ML SYRINGE IVP PRN (17:25)
[2019-08-17] MEDS ORDERED: MORPHINE 2 MG/ML CARPUJECT IVP PRN (18:09)
[2019-08-17] MEDS ORDERED: ASPIRIN CHEW 81 MG TABLET PO ONE (18:09)
[2019-08-17] MEDS: ENOXAPARIN 80 MG/0.8 ML SYRINGE SUBQ SCH (18:33)
--- NOTE | 2019-08-17 18:39 | PROVIDER PROGRESS NOTE ---
Hospitalist Cross-cover Note - Cross-Cover Note Cross-Cover Note: August 17, 2019 18: 33 The last 25 minutes have been spent in direct patient care for patient Mr. Manzano. He was admitted with altered mental status, suspicion of infection because of elevated white cell count. As the day has gone on he has continued to be hypotensive. And I have given him a fluid bolus of 500 cc but am cautious about giving more since his EF is 25%. I have also give him him his lisinopril 2.5 mg. I repeated his lactic acid which was 1.2. In an effort to find out why he was still hypotensive, I checked his repeat EKG and he continues to have a wide-complex paced atrial rhythm. I reviewed the old records from his primary care provider office and he is followed by Dr. Jayna Zelaya MD at [facility]. She sees him regularly. Mainly for his ischemic cardiomyopathy and ejection fraction of 25%, and to review his pacer rhythm/battery. With his last visit in early July he was hypotensive to 88 systolic. She cut his lisinopril from 5 mg to 2.5 mg. Mr. Manzano continues to be confused today. Is worried that he is having a stroke because he is so confused. He has not had a fever, he denies chest pain, palpitations, shortness of breath. When I asked him if he is having any pain, he thoughtfully pauses, waits about 15 seconds after reviewing his internal self, to tell me that he is doing well. The only thing that bothers him is his great toe. I have removed the bandages and his left great toe has the distal tip gone with bone visible. There is some redness over the metatarsal region but there is no heat. Trace edema. His last dose for levaquin was around 07/27, he thinks. In reviewing Dr. Zelaya's notes, the patient forgets to take his meds sometimes. Current vital signs have him with a temperature of 36.7, pulse of 79, blood pressure 91/70. He has no JVD, diminished breath sounds with intermittent crackles at the bases. No increased respiratory effort. His face is flushed. Abdomen is soft, nontender. Extremities are warm. Troponin high-sensitivity is 4100.5. C-reactive protein is 9.3. EKG continues to show a wide place beat with atrial pacing. Assessment/plan CT. I discussed the case with cardiology on-call for Dr. Zelaya. Dr. Rene Lamar is on-call. At 84, with dementia, and a DO NOT RESUSCITATE status, he doubts that any interventional studies on the part of cardiology will be done. If we feel uncomfortable keeping the patient, we can attempt transfer to [place]. I have started the patient on Lovenox, aspirin. I am not giving a beta-js because he is 88-90 systolic. Transferred to the ICU with a change from OBV status to inpatient status, monitor with telemetry. I have explained this to the patient but I think he is too confused to understand what is happening. His power of enamel machine operator is on file dated March 13, 2019. Dr. Sudeep Stiles at [phone] was contacted. There is no answer at that phone. As such I called the second name on the list which is El Taylor. Mr. Taylor was available at [phone]. Mr. Taylor is not feeling comfortable about making decisions regarding the patient even though he is power of enamel machine operator. He insists that I defer to Dr. Stiles. Apparently Dr. Stiles is under a bit of stress because his is been diagnosed with cancer and is failing quickly. He will try and get Dr. Stiles at home and have them give me a call.
[2019-08-18] MEDS: LACTATED RINGERS 1,000 ML IV SCH (01:26)
[2019-08-18 06:06] LABS: BASOPHILS # (AUTO) 0.1 10^3/uL (0.0-0.1); BASOPHILS % (AUTO) 0.5 %; EOSINOPHILS # (AUTO) 0.8 10^3/uL (0.0-0.7); EOSINOPHILS % (AUTO) 5.2 %; HGB - HEMOGLOBIN 10.7 g/dL (14.0-18.0); LYMPHOCYTES # (AUTO) 1.7 10^3/uL (1.5-3.5); MEAN CORPUSCULAR HEMOGLOBIN 30.5 pg (27.0-31.0); MEAN CORPUSCULAR HGB CONC 32.6 g/dL (32.0-36.0); MEAN CORPUSCULAR VOLUME 93.4 fL (80.0-94.0); MEAN PLATELET VOLUME 11.9 fL (7.4-11.4); MONOCYTES # (AUTO) 1.2 10^3/uL (0.0-1.0); MONOCYTES % (AUTO) 8.3 %; NEUTROPHILS # (AUTO) 11.1 10^3/uL (1.5-6.6); NEUTROPHILS % (AUTO) 74.5 %; PLT - PLATELET COUNT 215 10^3/uL (130-450); RED BLOOD COUNT 3.51 10^6/uL (4.70-6.10); RED CELL DISTRIBUTION WIDTH 14.1 % (12.0-15.0)
[2019-08-18 06:16] LABS: CALCIUM 8.4 mg/dL (8.5-10.3); CREATININE 1.2 mg/dL (0.6-1.2)
[2019-08-18] MEDS: INSULIN ASPART 300 UNIT/3 ML PEN SUBQ SCH ×4 (09:35→20:48)
[2019-08-18] MEDS: ASPIRIN EC 81 MG TABLET PO SCH (09:36)
[2019-08-18] MEDS: ALLOPURINOL 100 MG TABLET PO SCH (09:37)
[2019-08-18] MEDS: LORATADINE 10 MG TABLET PO SCH (09:38)
[2019-08-18] MEDS: SODIUM CHLORIDE FLUSH 0.9% 10 ML SYRINGE IVP SCH ×2 (09:39→17:02)
[2019-08-18] MEDS: ENOXAPARIN 80 MG/0.8 ML SYRINGE SUBQ SCH ×2 (09:41→20:46)
[2019-08-18] MEDS: LISINOPRIL 5 MG TABLET PO SCH (09:43)
[2019-08-18] MEDS: levoFLOXacin 250 MG TABLET PO SCH (10:04)
[2019-08-18] MEDS: ESCITALOPRAM 10 MG TABLET PO SCH (10:04)
[2019-08-18] MEDS: INSULIN GLARGINE 300 UNIT/3 ML PEN SUBQ SCH (10:07)
--- NOTE | 2019-08-18 14:41 | PROVIDER PROGRESS NOTE ---
Subjective - Prog Note Date Prog Note Date: 08/18/19 Prog Note Time: 14:30 - Subjective Pt reports feeling: Improved Subjective: he's tired, easily confused, doesn't remember me from last night even though I spent 45 minutes with him and being in ICU with him. He's sorry he can't remember. Elsa, a shelter "spiritual" family member is at the bedside. Later on, his resident care technician Artur shows up and meets Elsa for the first. Current Medications - Current Medications Current Medications: Active Medications Acetaminophen (Tylenol) 650 mg PO Q4HR PRN PRN Reason: Pain 1 to 4 Last Admin: 08/17/19 11:52 Dose: 650 mg Allopurinol (Zyloprim) 100 mg PO DAILY [facility] Last Admin: 08/18/19 09:37 Dose: 100 mg Aspirin (Ecotrin) 81 mg PO DAILY [facility] Last Admin: 08/18/19 09:36 Dose: 81 mg Calcium Carbonate/Glycine (Tums) 500 mg PO BID PRN PRN Reason: Heartburn Last Admin: 08/17/19 11:56 Dose: 500 mg Enoxaparin Sodium (Lovenox) 70 mg SUBQ BID [facility] Last Admin: 08/18/19 09:41 Dose: 70 mg Escitalopram Oxalate (Lexapro) 5 mg PO DAILY [facility] Last Admin: 08/18/19 10:04 Dose: 5 mg Insulin Aspart (Novolog) 1 - 9 unit SUBQ 0800,1200,1700,2100 [facility]; Protocol Last Admin: 08/18/19 12:12 Dose: 1 unit Insulin Glargine (Lantus Solostar) 40 unit SUBQ DAILY [facility] Last Admin: 08/18/19 10:07 Dose: 40 unit Levofloxacin (Levaquin) 750 mg PO Q48H [facility] Last Admin: 08/18/19 10:04 Dose: 750 mg Lisinopril (Zestril) 2.5 mg PO DAILY [facility] Last Admin: 08/18/19 09:43 Dose: Not Given Loratadine (Claritin) 10 mg PO DAILY [facility] Last Admin: 08/18/19 09:38 Dose: 10 mg Morphine Sulfate (Morphine (Carpuject)) 2 mg IVP Q5M PRN PRN Reason: Chest Pain Ondansetron HCl (Zofran Inj) 4 mg IVP Q6HR PRN PRN Reason: Nausea / Vomiting Sodium Chloride (Normal Saline Flush 0.9%) 10 ml IVP PRN PRN PRN Reason: NEEDED PER PROVIDER ORDERS Last Admin: 08/17/19 17:25 Dose: 80 ml Sodium Chloride (Normal Saline Flush 0.9%) 10 ml IVP 0100,0900,1700 [facility] Last Admin: 08/18/19 09:39 Dose: 10 ml Zinc Oxide (Desitin) 1 gm TOP PRN PRN PRN Reason: Skin Care Insulin Glargine,Hum.rec.anlog [Lantus] 40 units SQ DAILY 05/27/15 metFORMIN [Glucophage] 500 mg PO TID 03/30/18 Calcium Carbonate/Vitamin D3 [Caltrate 600 Plus D3 Tablet] 1 tab PO BID 06/11/19 Escitalopram Oxalate 5 mg PO DAILY 06/11/19 Furosemide [Lasix] 20 mg PO DAILY 06/11/19 Lisinopril [Zestril] 2.5 mg PO DAILY 06/11/19 Potassium Chloride [Micro-K] 10 meq PO DAILY 06/11/19 Oxycodone HCl/Acetaminophen [Percocet 10-325 mg Tablet] 10 mg PO Q6HR PRN 08/16/19 Allopurinol 100 mg PO DAILY 08/17/19 Objective - Vital Signs/Intake & Output Vital Signs: Vital Signs x48h Temp Pulse Pulse Pulse Pulse Pulse Resp 08/18/19 14:09 37.3 C 82 16 08/18/19 14:00 82 23 08/18/19 13:00 80 24 08/18/19 12:00 37.3 C 75 21 08/18/19 11:29 81 84 81 08/18/19 11:00 81 15 08/18/19 10:00 80 24 08/18/19 09:00 78 21 08/18/19 08:00 36.6 C 77 22 08/18/19 07:00 80 21 BP BP BP BP Pulse Ox Pulse Ox Pulse Ox 08/18/19 14:09 96 08/18/19 14:00 101/63 97 08/18/19 13:00 95/80 99 08/18/19 12:00 96/68 98 08/18/19 11:29 124/71 117/72 115/71 96 98 08/18/19 11:00 106/69 98 08/18/19 10:00 115/66 98 08/18/19 09:00 99/62 93 08/18/19 08:00 80/45 L 97 08/18/19 07:00 110/70 100 Intake & Output: Intake & Output 08/15/19 08/16/19 08/17/19 08/18/19 23:59 23:59 23:59 23:59 Intake Total 5505.821 9742 Output Total 235 475 Balance 5636.208 4943 - Objective General Appearance: positive: No acute distress, Alert. negative: Anxious, Lethargic Eyes Bilateral: positive: Normal inspection ENT: positive: ENT inspection nml, Pharynx nml, No signs of dehydration Neck: positive: Nml inspection, Thyroid nml, Trachea midline Respiratory: positive: Chest non-tender, No respiratory distress, Other (Soft crackles lower lobes) Cardiovascular: positive: Regular rate & rhythm, Systolic murmur, Other (Pacemaker to left chest wall). negative: Gallop/S4 Abdomen: positive: Non-tender, Nml bowel sounds, No distention Back: positive: Nml inspection Skin: positive: Color nml, No rash, Warm, Other (Dressing in place over L great toe). negative: Diaphoresis, Pallor, Decubitus Extremities: positive: Non-tender, Full ROM. negative: Pedal edema Neurologic/Psychiatric: positive: Oriented x3, Motor nml, Mood/affect nml, Disoriented to time (at times, and confused by situaiton and it's complexity. What didn't help was his friend "Britt" wanting to discuss his DNR status and she wanted say so over this.), Other (Disoriented to situation. Delayed response.). negative: Sensory loss, Facial droop, Slurred/abnml speech - Lab Results Fish Bones: 08/18/19 05:30 08/18/19 05:30 Other Labs: Lab Results x24hrs 08/18/19 08/18/19 08/18/19 Range/Units 05:30 05:30 05:30 WBC (4.8-10.8) x10^3/uL RBC (4.70-6.10) 10^6/uL Hgb (14.0-18.0) g/dL Hct (42.0-52.0) % MCV (80.0-94.0) fL MCH (27.0-31.0) pg MCHC (32.0-36.0) g/dL RDW (12.0-15.0) % Plt Count (130-450) 10^3/uL MPV (7.4-11.4) fL Neut # (Auto) (1.5-6.6) 10^3/uL Lymph # (Auto) (1.5-3.5) 10^3/uL Carolina # (Auto) (0.0-1.0) 10^3/uL Eos # (Auto) (0.0-0.7) 10^3/uL Baso # (Auto) (0.0-0.1) 10^3/uL Absolute Nucleated RBC x10^3/uL Nucleated RBC % /100WBC Sodium 140 (135-145) mmol/L Potassium 3.8 (3.5-5.0) mmol/L Chloride 105 (101-111) mmol/L Carbon Dioxide 25 (21-32) mmol/L Anion Gap 10.0 (6-13) BUN 26 H (6-20) mg/dL Creatinine 1.2 (0.6-1.2) mg/dL Estimated GFR (MDRD) 58 L (>89) Glucose 79 (70-100) mg/dL Glycated Hemoglobin (4.6-6.2) % Estim Average Glucose (70-100) Lactic Acid (0.5-2.2) mmol/L Calcium 8.4 L (8.5-10.3) mg/dL Troponin I High Sens 2490.3 H* (2.3-19.7) pg/mL C-Reactive Protein (0-1.0) mg/dL B-Natriuretic Peptide 1765 H (5-100) pg/mL 08/18/19 08/17/19 08/17/19 Range/Units 05:30 23:02 17:00 WBC 15.0 H (4.8-10.8) x10^3/uL RBC 3.51 L (4.70-6.10) 10^6/uL Hgb 10.7 L (14.0-18.0) g/dL Hct 32.8 L (42.0-52.0) % MCV 93.4 (80.0-94.0) fL MCH 30.5 (27.0-31.0) pg MCHC 32.6 (32.0-36.0) g/dL RDW 14.1 (12.0-15.0) % Plt Count 215 (130-450) 10^3/uL MPV 11.9 H (7.4-11.4) fL Neut # (Auto) 11.1 H (1.5-6.6) 10^3/uL Lymph # (Auto) 1.7 (1.5-3.5) 10^3/uL Carolina # (Auto) 1.2 H (0.0-1.0) 10^3/uL Eos # (Auto) 0.8 H (0.0-0.7) 10^3/uL Baso # (Auto) 0.1 (0.0-0.1) 10^3/uL Absolute Nucleated RBC 0.00 x10^3/uL Nucleated RBC % 0.0 /100WBC Sodium (135-145) mmol/L Potassium (3.5-5.0) mmol/L Chloride (101-111) mmol/L Carbon Dioxide (21-32) mmol/L Anion Gap (6-13) BUN (6-20) mg/dL Creatinine (0.6-1.2) mg/dL Estimated GFR (MDRD) (>89) Glucose (70-100) mg/dL Glycated Hemoglobin (4.6-6.2) % Estim Average Glucose (70-100) Lactic Acid (0.5-2.2) mmol/L Calcium (8.5-10.3) mg/dL Troponin I High Sens 3434.5 H* (2.3-19.7) pg/mL C-Reactive Protein 9.3 H (0-1.0) mg/dL B-Natriuretic Peptide (5-100) pg/mL 08/17/19 08/17/19 08/17/19 Range/Units 17:00 17:00 14:21 WBC (4.8-10.8) x10^3/uL RBC (4.70-6.10) 10^6/uL Hgb (14.0-18.0) g/dL Hct (42.0-52.0) % MCV (80.0-94.0) fL MCH (27.0-31.0) pg MCHC (32.0-36.0) g/dL RDW (12.0-15.0) % Plt Count (130-450) 10^3/uL MPV (7.4-11.4) fL Neut # (Auto) (1.5-6.6) 10^3/uL Lymph # (Auto) (1.5-3.5) 10^3/uL Carolina # (Auto) (0.0-1.0) 10^3/uL Eos # (Auto) (0.0-0.7) 10^3/uL Baso # (Auto) (0.0-0.1) 10^3/uL Absolute Nucleated RBC x10^3/uL Nucleated RBC % /100WBC Sodium (135-145) mmol/L Potassium (3.5-5.0) mmol/L Chloride (101-111) mmol/L Carbon Dioxide (21-32) mmol/L Anion Gap (6-13) BUN (6-20) mg/dL Creatinine (0.6-1.2) mg/dL Estimated GFR (MDRD) (>89) Glucose (70-100) mg/dL Glycated Hemoglobin 8.6 H (4.6-6.2) % Estim Average Glucose 200 H (70-100) Lactic Acid 1.2 (0.5-2.2) mmol/L Calcium (8.5-10.3) mg/dL Troponin I High Sens 4100.5 H* (2.3-19.7) pg/mL C-Reactive Protein (0-1.0) mg/dL B-Natriuretic Peptide (5-100) pg/mL - Diagnostic Imaging Diagnostic Imaging Results: positive: Final report reviewed ABX Reporting Has patient been on IV antibiotics over the past 48 hours?: Yes Sepsis Event Note (H) - Evaluation Current Stage of Sepsis: Ruled out Assessment/Plan - Problem List (1) NSTEMI (non-ST elevated myocardial infarction) Impression: This patient has an extensive cardiac history including CHF, CAD, arrhythmia s/p pacemaker and valve disorder. He has also received CPR in the past in spite of being a DNR. He has horrible memories of that time. He feels betrayed that he wanted DNR and his daughter, at a crisis moment, revoked it and he was resuscitated. Has since then confirmed his code status to DNR. and put it in writing with a POA, Bob Stiles MD and Jesse Taylor. POA copy is in the chart record. Since admission, he had ongoing hypotension despite a 500cc IVF bolus. An EKG was re checked and continued to show a wide-complex paced atrial rhythm. A troponin high-sensitivity was checked and shown to be 4100.5. Given his age and wish for limited intervention, he was not a candidate for intervention so he was placed on maintenance therapy of Lovenox 70mg sub-q BID X48H and ASA 81mg. His condition was discussed with Dr. Pantoja, Cardiology special education tutor, and Dr. Bob Stiles, his POA. Given his low blood pressures, beta blockers are being held for now. Serial troponins done and they trended downward, the most recent being 2490.3. Additionally, CRP was 9.3 and BNP was 1765. -Continue to hold beta js while BPs are soft -Continue tele -Lovenox 70mg sub-q BID X48H -ASA 81mg daily -PRN Morphine -Supplemental O2 to keep Spo2 >93% -ECHO in the morning to assess for further damage to the myocardium -BNP in the morning (2) Chronic HFrEF (heart failure with reduced ejection fraction) Impression: Most recent ECHO showed an EF of 25%. He is followed by delivery truck driver heavy Dr. Jayna Zelaya at the [place] [facility] for his EF as well as his ischemic cardiomyopathy and to review his pacer/battery. His Lisinopril was recently reduced from 5mg to 2.5mg in July d/t hypotension. He has no JVD and respirations are calm and even. Soft crackles in lower lobes. -Continue Lisinopril 2.5mg w/ holding parameters. -ECHO in the morning as stated above (3) Renal insufficiency Impression: BUN/creatinine down from 29/1.4 26/1.2. EFGR-58. -BMP in the morning (4) Type 2 diabetes mellitus with hyperglycemia, with long-term current use of insulin Impression: Takes Lantus 40units at home. Blood sugar was elevated yesterday at 286 and low this morning at 79. The elevation could have been due to an inflammatory process. Will hold off on making changes for now. -Lantus 40units daily + sliding scale (5) Leukocytosis Impression: WBCs were elevated at 18 upon arrival with possible sources of infection being a PICC line to his RUE and an ulcer on his L great toe. U/A was negative. This patient had been receiving IV ABX for his infected toe which was later changed to PO Levaquin. According to records, his ABX regimen was completed in late July. Unsure why this patient still has his line in but will need to follow up w/ his provider THONY for possible removal if needed. WBCs down to 15 today. 2 sets of blood cx were drawn yesterday and are NTD. Given the mild erythema to his L foot along w/ elevated WBCs and PCT of 9.3, his prior Levaquin regimen was resumed. -Continue Levaquin 750mg Q48H -CBC in the morning -Dressing changes per order -Wound consult -Follow up w/ PCP to determine need for removal of PICC line (6) Cognitive impairment Impression: Pt reports that he feels confused at times. He is not completely sure why he is here but his cognition appears to be imrproved from yesterday. There is nothing to indicate CVA. This could be mild delirium associated w/ infectious and/or inflammatory processes. -Monitor (7) Generalized weakness Impression: Has progressively become weaker over the past week to the point where he was unable to get up and needed to use his life alert, resulting in this admission. Was able to walk with PT today around unit. -Continue PT/OT -Likely to D/C home w/ HH (8) Osteomyelitis of great toe of left foot Impression: he has finished abx for this but I am resuming since bone is visible and mild redness visible. What is not clear is which ortho surgeon he feels he saw last week and that is "going to save his toe". In an case, I don't think he's a candidate for general anesthesia at this time. Will have to address this once the acute managment of his [place] is done. (9) Do not resuscitate Impression: I have explained to both Elsa and Artur, very concerned friend and resident care technician, that while their input is appreciated, I really need to abide by the POA decisions. I have urged them both to contact Jesse Taylor and Bob Rand to discuss the case. They should all be on the same page as to their concern and love and wishes for this man.
[2019-08-18] MEDS: MULTIVITAMIN W/MINERALS TABLET PO SCH (15:59)
[2019-08-18] MEDS: ACETAMINOPHEN 325 MG TABLET PO PRN (17:02)
[2019-08-19] MEDS: INSULIN ASPART 300 UNIT/3 ML PEN SUBQ SCH ×4 (07:52→22:57)
[2019-08-19] MEDS: SODIUM CHLORIDE FLUSH 0.9% 10 ML SYRINGE IVP SCH ×3 (08:25→16:52)
--- NOTE | 2019-08-19 08:34 | PROVIDER PROGRESS NOTE ---
Assessment/Plan - Problem List (1) NSTEMI (non-ST elevated myocardial infarction) Assessment/Plan: He is not a candidate for transfer to a facility with higher level of care due to his and POA's wishes, current diabetic foot infection and confusion (?dementia). Plan is for medical management: Aspirin was started; it is unclear why he was not on ASA pre-admission, with a Hx of remote CABG. 48 hours of therapeutic dose of Lovenox planned (thru tomorrow a.m.). Will add B-js today Lipitor would be indicated, but his allergy list says he is allergic to both Simvistatin and Crestor, therefore no Lipitor ordered. There was no angina, and due to low BP, will not start nitrates. (2) Chronic HFrEF (heart failure with reduced ejection fraction) Assessment/Plan: Echo done today shows global hypokinesis, worse LVEF of 20-25%, down from 30-35% in 03/30 and higher PA pressure to 65 mmHg. Will start low dose Coreg and Spironoloactone, for the worsened LVEF and wor sened pulmonary HTN by today's Echo. Stager resuming Lasix. Continue the lower dose of Lisinopril. If these meds do not drop his BP excessively, will transfer out of ICU later today. (3) Hypotension Assessment/Plan: It appears that he runs chronic low BP and was not on a B-js before this admission, and that his Lisinopril dose was recently decreased. With low BP, there would be concern that he was septic therefore in septic shock, also could have had cardiogenic shock with the new cardiac damage of NSTEMI. Will start low dose Coreg and Spironoloactone, for the worsened LVEF and worsened pulmonary HTN by today's Echo, compared to 03/30. If these meds do not drop his BP excessively, will transfer out of ICU tomorrow. Midodrine could be added for low BPs; check orthostatic VS daily. (4) Leukocytosis Assessment/Plan: WBCs were elevated at 18 upon arrival with possible sources of infection being a PICC line to his RUE and an ulcer on his L great toe. U/A was negative. This patient had been receiving IV ABX for his infected toe which was later changed to PO Levaquin. According to records, his ABX regimen was completed in late July. Unsure why this patient still has his line in but will need to follow up w/ his provider THONY for possible removal if needed. WBCs down since admission. 4 sets of blood cx are neg to date. Given the mild erythema to his L foot along w/ elevated WBCs, his prior Levaquin regimen was resumed. Continue Levaquin 750mg Q48H CBC daily Dressing changes per Wound Ecg Technician order Wound consult appreciated (5) Chronic renal insufficiency, stage III (moderate) Assessment/Plan: Possibly cardio-renal syndrome or CKD due to DM. The BUN/creat improved after 500 cc of fluids, but do not want to continue iv hydration with this low LVEF. Monitor BMP daily. (6) Type 2 diabetes mellitus with hyperglycemia, with long-term current use of insulin Assessment/Plan: Low glu in a.m and excessively high glu in afternoon. Will adjust his Long acting Insulin to help the extremes of glu. Continue cc diet and ss Insulin coverage. (7) Diabetic foot ulcers Assessment/Plan: Estephania Boone NP, knows this patient from outpatient management, and selled out his extensive recent past Hx in detail. Continue would care and po antibx, per her recommendations. (8) At risk for central line-associated bloodstream infection Assessment/Plan: He has a PICC line still in place. Will not request removal, since he is not bacteremic and since there ryan be need for future iv antibiotics. (9) Diarrhea Assessment/Plan: Will check for C. diff, since he has needed alot of antibiotics recently. Give Imodium prn. (10) Anemia Assessment/Plan: B12 and Folate levels were adequate. Will check an Iron panel and guiac stool, and give Iron supplement if needed. (11) Generalized weakness Assessment/Plan: He admitted to several falls at home and also there was "dizziness" described by the friend, Elsa. Will check for orthostasis, while starting his cardiac meds. PT and OT may continue. He will need a SNF, per PT notes. SW is aware. (12) Confusion Assessment/Plan: Estephania Boone NP reported to me that this is the patient's baseline confusion and that he "sundowns in the afternoon from marked fatigue". At this level of function, he may have been non-compliant with home meds due to forgetfullness. He will very likely need permanent placement in an Assisted Living facility, after SNF, due to dementia. (13) TRIBE (hard of hearing) Assessment/Plan: His hearing aide was brought in by the friend, Elsa. - Current Meds Current Meds: Current Medications Generic Name Dose Route Start Last Admin Trade Name Freq PRN Reason Stop Dose Admin Acetaminophen 650 mg 08/17/19 05:02 08/18/19 17:02 Tylenol PO 650 mg Q4HR PRN Administration Pain 1 to 4 Allopurinol 100 mg 08/17/19 09:00 08/18/19 09:37 Zyloprim PO 100 mg DAILY DULCE Administration Aspirin 81 mg 08/18/19 09:00 08/18/19 09:36 Ecotrin PO 81 mg DAILY DULCE Administration Calcium Carbonate/Glycine 500 mg 08/17/19 05:07 08/17/19 11:56 Tums PO 500 mg BID PRN Administration Heartburn Enoxaparin Sodium 70 mg 08/17/19 19:00 08/18/19 20:46 Lovenox SUBQ 70 mg BID DULCE Administration Escitalopram Oxalate 5 mg 08/17/19 09:00 08/18/19 10:04 Lexapro PO 5 mg DAILY DULCE Administration Insulin Aspart 1 - 9 unit 08/17/19 12:00 08/19/19 07:52 Novolog SUBQ Not Given 0800,1200,1700,2100 [facility] Protocol Insulin Glargine 40 unit 08/17/19 09:00 08/18/19 10:07 Lantus Solostar SUBQ 40 unit DAILY DULCE Administration Levofloxacin 750 mg 08/18/19 08:00 08/18/19 10:04 Levaquin PO 750 mg Q48H DULCE Administration Lisinopril 2.5 mg 08/17/19 09:00 08/18/19 09:43 Zestril PO Not Given DAILY DULCE Loratadine 10 mg 08/17/19 12:00 08/18/19 09:38 Claritin PO 10 mg DAILY DULCE Administration Multivitamins/Minerals 1 tab 08/18/19 15:00 08/18/19 15:59 Theragran M PO 1 tab DAILYWM@1000 DULCE Administration Sodium Chloride 10 ml 08/17/19 05:02 08/17/19 17:25 Normal Saline Flush 0.9% IVP 80 ml PRN PRN Administration NEEDED PER PROVIDER ORDERS Sodium Chloride 10 ml 08/17/19 09:00 08/18/19 17:02 Normal Saline Flush 0.9% IVP 10 ml 0100,0900,1700 [facility] Administration - Lab Result Fish Bone Diagrams: 08/19/19 05:10 08/19/19 05:10 - Additional Planning My Orders: My Active Orders 08/19/19 09:00 Carvedilol [Coreg] 3.125 mg PO BID Spironolactone [Aldactone] 25 mg PO DAILY Subjective - Subjective Patient Reports: Resting Comfortably, Fatigue Nursing Reports: Diarrhea (Liquid and frequent BMs reported by his nurse) Objective Vital Signs: Vital Signs - 24 hr 08/18/19 08/18/19 08/18/19 09:00 10:00 11:00 Temperature Heart Rate Heart Rate [ Activity] Heart Rate [ 78 80 81 Brachial] Heart Rate [ Sitting] Heart Rate [ Standing] Heart Rate [ Supine] Respiratory 21 24 15 Rate Blood Pressure [Activity] Blood Pressure 99/62 115/66 106/69 [Left Brachial artery] Blood Pressure [Sitting] Blood Pressure [Standing] Blood Pressure [Supine] O2 Saturation 93 98 98 O2 Saturation [ Standing] O2 Saturation [ Supine] 08/18/19 08/18/19 08/18/19 11:29 12:00 12:05 Temperature 37.3 C Heart Rate Heart Rate [ 83 Activity] Heart Rate [ 75 Brachial] Heart Rate [ 81 Sitting] Heart Rate [ 84 Standing] Heart Rate [ 81 Supine] Respiratory 21 Rate Blood Pressure 117/72 [Activity] Blood Pressure 96/68 [Left Brachial artery] Blood Pressure 124/71 [Sitting] Blood Pressure 117/72 [Standing] Blood Pressure 115/71 [Supine] O2 Saturation 98 O2 Saturation [ 96 Standing] O2 Saturation [ 98 Supine] 08/18/19 08/18/19 08/18/19 13:00 14:00 14:09 Temperature 37.3 C Heart Rate 82 Heart Rate [ Activity] Heart Rate [ 80 82 Brachial] Heart Rate [ Sitting] Heart Rate [ Standing] Heart Rate [ Supine] Respiratory 24 23 16 Rate Blood Pressure [Activity] Blood Pressure 95/80 101/63 [Left Brachial artery] Blood Pressure [Sitting] Blood Pressure [Standing] Blood Pressure [Supine] O2 Saturation 99 97 96 O2 Saturation [ Standing] O2 Saturation [ Supine] 08/18/19 08/18/1908/18/19 15:00 16:00 17:00 Temperature 36.8 C Heart Rate Heart Rate [ Activity] Heart Rate [ 79 85 92 Brachial] Heart Rate [ Sitting] Heart Rate [ Standing] Heart Rate [ Supine] Respiratory 24 23 22 Rate Blood Pressure [Activity] Blood Pressure 96/59 L 112/71 116/69 [Left Brachial artery] Blood Pressure [Sitting] Blood Pressure [Standing] Blood Pressure [Supine] O2 Saturation 97 100 98 O2 Saturation [ Standing] O2 Saturation [ Supine] 08/18/19 08/18/19 08/18/19 18:00 19:00 20:00 Temperature 36.9 C Heart Rate Heart Rate [ Activity] Heart Rate [ 73 72 76 Brachial] Heart Rate [ Sitting] Heart Rate [ Standing] Heart Rate [ Supine] Respiratory 16 23 20 Rate Blood Pressure [Activity] Blood Pressure 108/66 92/54 L 102/74 [Left Brachial artery] Blood Pressure [Sitting] Blood Pressure [Standing] Blood Pressure [Supine] O2 Saturation 98 95 96 O2 Saturation [ Standing] O2 Saturation [ Supine] 08/18/19 08/18/19 08/18/19 21:00 22:00 23:00 Temperature Heart Rate Heart Rate [ Activity] Heart Rate [ 81 96 89 Brachial] Heart Rate [ Sitting] Heart Rate [ Standing] Heart Rate [ Supine] Respiratory 23 23 23 Rate Blood Pressure [Activity] Blood Pressure 106/66 108/60 97/68 [Left Brachial artery] Blood Pressure [Sitting] Blood Pressure [Standing] Blood Pressure [Supine] O2 Saturation 94 97 97 O2 Saturation [ Standing] O2 Saturation [ Supine] 08/19/19 08/19/19 08/19/19 00:00 01:00 02:00 Temperature 36.6 C Heart Rate Heart Rate [ Activity] Heart Rate [ 84 80 84 Brachial] Heart Rate [ Sitting] Heart Rate [ Standing] Heart Rate [ Supine] Respiratory 23 22 21 Rate Blood Pressure [Activity] Blood Pressure 81/56 L 116/55 L 103/56 L [Left Brachial artery] Blood Pressure [Sitting] Blood Pressure [Standing] Blood Pressure [Supine] O2 Saturation 96 95 94 O2 Saturation [ Standing] O2 Saturation [ Supine] 08/19/19 08/19/19 08/19/19 03:00 04:00 05:00 Temperature 36.6 C Heart Rate Heart Rate [ Activity] Heart Rate [ 89 95 82 Brachial] Heart Rate [ Sitting] Heart Rate [ Standing] Heart Rate [ Supine] Respiratory 20 29 H 22 Rate Blood Pressure [Activity] Blood Pressure 112/57 L 115/70 105/44 L [Left Brachial artery] Blood Pressure [Sitting] Blood Pressure [Standing] Blood Pressure [Supine] O2 Saturation 97 92 95 O2 Saturation [ Standing] O2 Saturation [ Supine] 08/19/19 08/19/19 08/19/19 06:00 07:00 08:00 Temperature 36.4 C L Heart Rate Heart Rate [ Activity] Heart Rate [ 81 80 78 Brachial] Heart Rate [ Sitting] Heart Rate [ Standing] Heart Rate [ Supine] Respiratory 24 22 20 Rate Blood Pressure [Activity] Blood Pressure 114/65 121/65 [Left Brachial artery] Blood Pressure [Sitting] Blood Pressure [Standing] Blood Pressure [Supine] O2 Saturation 96 93 98 O2 Saturation [ Standing] O2 Saturation [ Supine] Oxygen O2 Source [With Activity] Room air O2 Source [Without Activity] Room air O2 Source Room air I&O (Last 24 Hrs): Intake and Output Totals x24h 08/17/19 08/18/19 08/19/19 23:59 23:59 23:59 Intake Total 2008.486 2340 Output Total 235 575 150 Balance 5724.827 6618 -150 General: Alert HEENT: Mucous membr. moist/pink, Other (Cheeks flushed) Neck: Supple, No JVD Neuro: Alert, Other (TRIBE, oriented to place and self) Cardiovascular: Regular rate, No murmurs Respiratory: No respiratory distress, Breath sounds nml Abdomen: Soft Extremities: No edema, Other (Bandaged toes) - Results Results: Laboratory Results WBC 15.0 x10^3/uL (4.8-10.8) H 08/18/19 05:30 RBC 3.51 10^6/uL (4.70-6.10) L 08/18/19 05:30 Hgb 10.7 g/dL (14.0-18.0) L 08/18/19 05:30 Hct 32.8 % (42.0-52.0) L 08/18/19 05:30 MCV 93.4 fL (80.0-94.0) 08/18/19 05:30 MCH 30.5 pg (27.0-31.0) 08/18/19 05:30 MCHC 32.6 g/dL (32.0-36.0) 08/18/19 05:30 RDW 14.1 % (12.0-15.0) 08/18/19 05:30 Plt Count 215 10^3/uL (130-450) 08/18/19 05:30 MPV 11.9 fL (7.4-11.4) H 08/18/19 05:30 Neut # (Auto) 11.1 10^3/uL (1.5-6.6) H 08/18/19 05:30 Lymph # (Auto) 1.7 10^3/uL (1.5-3.5) 08/18/19 05:30 [place] # (Auto) 1.2 10^3/uL (0.0-1.0) H 08/18/19 05:30 Eos # (Auto) 0.8 10^3/uL (0.0-0.7) H 08/18/19 05:30 Baso # (Auto) 0.1 10^3/uL (0.0-0.1) 08/18/19 05:30 Absolute Nucleated RBC 0.00 x10^3/uL 08/18/19 05:30 Nucleated RBC % 0.0 /100WBC 08/18/19 05:30 Sodium 140 mmol/L (135-145) 08/18/19 05:30 Potassium 3.8 mmol/L (3.5-5.0) 08/18/19 05:30 Chloride 105 mmol/L (101-111) 08/18/19 05:30 Carbon Dioxide 25 mmol/L (21-32) 08/18/19 05:30 Anion Gap 10.0 (6-13) 08/18/19 05:30 BUN 26 mg/dL (6-20) H 08/18/19 05:30 Creatinine 1.2 mg/dL (0.6-1.2) 08/18/19 05:30 Estimated GFR (MDRD) 58 (>89) L 08/18/19 05:30 Glucose 79 mg/dL (70-100) 08/18/19 05:30 Glycated Hemoglobin 8.6 % (4.6-6.2) H 08/17/19 14:21 Estim Average Glucose 200 (70-100) H 08/17/19 14:21 Lactic Acid 1.2 mmol/L (0.5-2.2) 08/17/19 17:00 Calcium 8.4 mg/dL (8.5-10.3) L 08/18/19 05:30 Phosphorus 2.2 mg/dL (2.5-4.6) L 08/17/19 05:15 Magnesium 2.0 mg/dL (1.7-2.8) 08/17/19 05:15 Total Bilirubin 0.8 mg/dL (0.2-1.0) 08/16/19 22:02 AST 18 IU/L (10-42) 08/16/19 22:02 ALT 16 IU/L (10-60) 08/16/19 22:02 Alkaline Phosphatase 88 IU/L (42-121) 08/16/19 22:02 Troponin I High Sens 2490.3 pg/mL (2.3-19.7) H* 08/18/19 05:30 C-Reactive Protein 9.3 mg/dL (0-1.0) H 08/17/19 17:00 B-Natriuretic Peptide 1765 pg/mL (5-100) H 08/18/19 05:30 Total Protein 6.8 g/dL (6.7-8.2) 08/16/19 22:02 Albumin 3.4 g/dL (3.2-5.5) 08/16/19 22:02 Globulin 3.4 g/dL (2.1-4.2) 08/16/19 22:02 Albumin/Globulin Ratio 1.0 (1.0-2.2) 08/16/19 22:02 Lipase 19 U/L (22-51) L 08/16/19 22:02 Vitamin B12 707 pg/mL (180-914) 08/17/19 05:15 Folate 8.63 ng/mL (5.90 - >24.8) 08/17/19 05:15 Urine Color YELLOW 08/17/19 01:50 Urine Clarity CLEAR (CLEAR) 08/17/19 01:50 Urine pH 5.5 PH (5.0-7.5) 08/17/19 01:50 Ur Specific [place] 1.020 (1.002-1.030) 08/17/19 01:50 Urine Protein NEGATIVE mg/dL (NEGATIVE) 08/17/19 01:50 Urine Glucose (UA) >=1000 mg/dL (NEGATIVE) H 08/17/19 01:50 Urine Ketones 15 mg/dL (NEGATIVE) H 08/17/19 01:50 Urine Occult Blood NEGATIVE (NEGATIVE) 08/17/19 01:50 Urine Nitrite NEGATIVE (NEGATIVE) 08/17/19 01:50 Urine Bilirubin NEGATIVE (NEGATIVE) 08/17/19 01:50 Urine Urobilinogen 0.2 (NORMAL) E.U./dL (NORMAL) 08/17/19 01:50 Ur Leukocyte Esterase NEGATIVE (NEGATIVE) 08/17/19 01:50 Ur Microscopic Review NOT INDICATED 08/17/19 01:50 Urine Culture Comments NOT INDICATED 08/17/19 01:50 - Procedures Procedures: Procedures INSERTION OF INFUSION DEV INTO SUP VENA CAVA, PERC APPROACH (07/25/19) Sepsis Event Note (H) - Evaluation Current Stage of Sepsis: Ruled out
[2019-08-19] MEDS: ALLOPURINOL 100 MG TABLET PO SCH (08:35)
[2019-08-19] MEDS: ASPIRIN EC 81 MG TABLET PO SCH (08:35)
[2019-08-19] MEDS: ESCITALOPRAM 10 MG TABLET PO SCH (08:35)
[2019-08-19] MEDS: ENOXAPARIN 80 MG/0.8 ML SYRINGE SUBQ SCH ×2 (08:36→22:53)
[2019-08-19] MEDS: LORATADINE 10 MG TABLET PO SCH (08:36)
[2019-08-19 09:00] LABS: BASOPHILS # (AUTO) 0.1 10^3/uL (0.0-0.1); BASOPHILS % (AUTO) 0.6 %; EOSINOPHILS # (AUTO) 0.4 10^3/uL (0.0-0.7); EOSINOPHILS % (AUTO) 2.3 %; HGB - HEMOGLOBIN 10.1 g/dL (14.0-18.0); LYMPHOCYTES # (AUTO) 1.1 10^3/uL (1.5-3.5); LYMPHOCYTES % (AUTO) 6.9 %; MEAN CORPUSCULAR HGB CONC 31.9 g/dL (32.0-36.0); MEAN CORPUSCULAR VOLUME 94.1 fL (80.0-94.0); MEAN PLATELET VOLUME 12.3 fL (7.4-11.4); MONOCYTES # (AUTO) 1.6 10^3/uL (0.0-1.0); MONOCYTES % (AUTO) 9.6 %; NEUTROPHILS # (AUTO) 12.9 10^3/uL (1.5-6.6); PLT - PLATELET COUNT 227 10^3/uL (130-450); RED BLOOD COUNT 3.37 10^6/uL (4.70-6.10); RED CELL DISTRIBUTION WIDTH 14.1 % (12.0-15.0); WHITE BLOOD COUNT 16.2 x10^3/uL (4.8-10.8)
[2019-08-19 09:04] LABS: ALBUMIN 2.6 g/dL (3.2-5.5); ALBUMIN/GLOBULIN RATIO 0.8 (1.0-2.2); BILIRUBIN,TOTAL 0.5 mg/dL (0.2-1.0); CALCIUM 8.3 mg/dL (8.5-10.3); CREATININE 1.2 mg/dL (0.6-1.2)
[2019-08-19 09:27] LABS: % IRON SATURATION 4 % (20-50); IRON 8 ug/dL (45-182); TOTAL IRON BINDING CAPACITY 197 ug/dL (250-450); TRANSFERRIN 141 mg/dL (180-329)
[2019-08-19 09:29] LABS: RBC MORPHOLOGY (MULTIPLE) 1+ ANISOCYTOSIS (NORMAL)
[2019-08-19] MEDS: INSULIN GLARGINE 300 UNIT/3 ML PEN SUBQ SCH (09:40)
[2019-08-19] MEDS: LISINOPRIL 5 MG TABLET PO SCH (09:43)
[2019-08-19] MEDS: MULTIVITAMIN W/MINERALS TABLET PO SCH (09:43)
[2019-08-19] MEDS: SPIRONOLACTONE 25 MG TABLET PO SCH (09:44)
[2019-08-19] MEDS: CARVEDILOL 3.125 MG TABLET PO SCH ×2 (11:20→22:56)
[2019-08-19] MEDS ORDERED: LOPERAMIDE 2 MG CAPSULE PO PRN (13:15)
[2019-08-19] MEDS: COD LIVER OIL/ZINC OXIDE 113 GM TUBE TOP PRN ×2 (17:14→23:00)
[2019-08-19] MEDS: VANCOMYCIN 125 MG CAPSULE PO SCH (22:57)
[2019-08-19] MEDS: SODIUM CHLORIDE FLUSH 0.9% 10 ML SYRINGE IVP PRN (23:00)
[2019-08-20] MEDS: SODIUM CHLORIDE FLUSH 0.9% 10 ML SYRINGE IVP SCH ×3 (01:13→18:35)
[2019-08-20] MEDS: SODIUM CHLORIDE FLUSH 0.9% 10 ML SYRINGE IVP PRN ×2 (01:13→18:36)
[2019-08-20] MEDS ORDERED: SODIUM CHLORIDE FLUSH 0.9% 10 ML SYRINGE IVP PRN ×2 (02:50→17:09)
[2019-08-20] MEDS: INSULIN GLARGINE 300 UNIT/3 ML PEN SUBQ SCH (08:47)
[2019-08-20] MEDS: LISINOPRIL 5 MG TABLET PO SCH (08:49)
[2019-08-20] MEDS: CARVEDILOL 3.125 MG TABLET PO SCH ×2 (08:49→20:35)
[2019-08-20] MEDS: SPIRONOLACTONE 25 MG TABLET PO SCH (08:49)
[2019-08-20] MEDS: ASPIRIN EC 81 MG TABLET PO SCH (08:49)
[2019-08-20] MEDS: ALLOPURINOL 100 MG TABLET PO SCH (08:50)
[2019-08-20] MEDS: LORATADINE 10 MG TABLET PO SCH (08:50)
[2019-08-20] MEDS: MIDODRINE 2.5 MG TABLET PO SCH ×3 (08:50→16:39)
[2019-08-20] MEDS: ESCITALOPRAM 10 MG TABLET PO SCH (08:50)
[2019-08-20] MEDS: VANCOMYCIN 125 MG CAPSULE PO SCH ×4 (08:50→20:35)
[2019-08-20] MEDS: ENOXAPARIN 40 MG/0.4 ML SYRINGE SUBQ SCH (08:51)
[2019-08-20] MEDS: MULTIVITAMIN W/MINERALS TABLET PO SCH (08:51)
--- NOTE | 2019-08-20 09:11 | PROVIDER PROGRESS NOTE ---
Assessment/Plan - Problem List (1) NSTEMI (non-ST elevated myocardial infarction) Assessment/Plan: Medical management is planned. New B-js, low dose due to low BP, was started yesterday. He is nearing his 48 hours of Lovenox therapeutic dose treatment. Statin was planned, but his allergy list contains Crestor and Simvistatin on it. Continue daily aspirin, lifelong. 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 He will need rehab post-MO, but is much too weak to participate (and understand) Cardiac Rehab. (2) Chronic HFrEF (heart failure with reduced ejection fraction) Assessment/Plan: LVEF by Echo done yesterday is 20%, which is dropped from last Echo. Coreg and Spironolactone started yesterday, no Lasix resumed since he is euvolemic right now. Lisinopril home dose continued. He is ambulating in room without supplemental oxygen as well. Will do oximetry evaluation on day of DCh (probably tomorrow). (3) Hypotension Assessment/Plan: BP is very low, therefore Midodrine was ordered to be started today t.i.d. with meals, so that he can receive his Coreg, Lisinopril and Spironolactone. Improving cerebral blood flow with a better BP, may help his fatigue and memory somewhat. (4) C. difficile diarrhea Assessment/Plan: He started to get watery diarrhea 2-3 days ago, when his oral Levoflox was started. He PCR was (+) for C. diff last night. Isolation ordered. Po Vanco ordered. Prn Imodium ordered. (5) Leukocytosis Assessment/Plan: He presented with an elevated WBC count of 16 and today's CBC shows normal WBC and differential. Continue plan for treatment of the diabetic foot ulcers with antibiotics. No plan to remove the PICC with neg blood cx. (6) Chronic renal insufficiency, stage III (moderate) Assessment/Plan: Creat stable at 1.2 today. (7) Type 2 diabetes mellitus with hyperglycemia, with long-term current use of insulin Assessment/Plan: Continue cc diet and Insulin management. (8) Diabetic foot ulcers Assessment/Plan: Pt seen by W[facility] [facility], advised drwessing changes and oral antibiotics. (9) Anemia Qualifiers: Anemia type: iron deficiency Assessment/Plan: Will begin oral Iron supplements and continue for 1-2 mos. (10) At risk for central line-associated bloodstream infection Assessment/Plan: The WBC has normalized. He has had neg blood cx. Will not remove the PICC line, in case more iv meds needed for treating the diabetic foot infections. (11) Generalized weakness Assessment/Plan: PT working with patient. He needs further PT rehab at a SNF. (12) Confusion Assessment/Plan: The head CT done at admission showed generalized cortical atrophy consistent with his advanced age. He is known to "sundown" and get weaker as the day goes on, per Estephania Boone NP. This appears to be his baseline and suggests dementia. (13) [place] (hard of hearing) Assessment/Plan: His friend brought in his hearing aides, not sure if they are being used. - Current Meds Current Meds: Current Medications Generic Name Dose Route Start Last Admin Trade Name Freq PRN Reason Stop Dose Admin Acetaminophen 650 mg 08/17/19 05:02 08/18/19 17:02 Tylenol PO 650 mg Q4HR PRN Administration Pain 1 to 4 Allopurinol 100 mg 08/17/19 09:00 08/20/19 08:50 Zyloprim PO 100 mg DAILY DULCE Administration Aspirin 81 mg 08/18/19 09:00 08/20/19 08:49 Ecotrin PO 81 mg DAILY DULCE Administration Calcium Carbonate/Glycine 500 mg 08/17/19 05:07 08/17/19 11:56 Tums PO 500 mg BID PRN Administration Heartburn Carvedilol 3.125 mg 08/19/19 09:00 08/20/19 08:49 Coreg PO 3.125 mg BID DULCE Administration Enoxaparin Sodium 40 mg 08/20/19 09:00 08/20/19 08:51 Lovenox SUBQ 40 mg DAILY DULCE Administration Escitalopram Oxalate 5 mg 08/17/19 09:00 08/20/19 08:50 Lexapro PO 5 mg DAILY DULCE Administration Insulin Aspart 1 - 9 unit 08/17/19 12:00 08/19/19 22:57 Novolog SUBQ 3 unit 0800,1200,1700,2100 DULCE Administration Protocol Insulin Glargine 25 unit 08/20/19 09:00 08/20/19 08:47 Lantus Solostar SUBQ 25 unit DAILY DULCE Administration Levofloxacin 750 mg 08/18/19 08:00 08/18/19 10:04 Levaquin PO 750 mg Q48H DULCE Administration Lisinopril 2.5 mg 08/17/19 09:00 08/20/19 08:49 Zestril PO 2.5 mg DAILY DULCE Administration Loratadine 10 mg 08/17/19 12:00 08/20/19 08:50 Claritin PO 10 mg DAILY DULCE Administration Midodrine 2.5 mg 08/20/19 08:00 08/20/19 08:50 PO 2.5 mg TIDWM DULCE Administration Multivitamins/Minerals 1 tab 08/18/19 15:00 08/20/19 08:51 Theragran M PO 1 tab DAILYWM@1000 DULCE Administration Sodium Chloride 10 ml 08/17/19 05:02 08/20/19 01:13 Normal Saline Flush 0.9% IVP 10 ml PRN PRN Administration NEEDED PER PROVIDER ORDERS Sodium Chloride 10 ml 08/17/19 09:00 08/20/19 08:51 Normal Saline Flush 0.9% IVP 10 ml 0100,0900,1700 DULCE Administration Spironolactone 25 mg 08/19/19 09:00 08/20/19 08:49 Aldactone PO 25 mg DAILY DULCE Administration Vancomycin HCl 125 mg 08/19/19 21:00 08/20/19 08:50 Vancocin PO 08/29/19 20:59 125 mg QID DULCE Administration Zinc Oxide 1 gm 08/17/19 08:39 08/19/19 23:00 Desitin TOP 1 applic PRN PRN Administration Skin Care - Lab Result Fish Bone Diagrams: 08/20/19 12:36 08/20/19 12:36 - Additional Planning My Orders: My Active Orders 08/19/19 08:51 Orthostatic [Vital Signs - Orthostatic] [RC] DAILY 08/19/19 09:00 Carvedilol [Coreg] 3.125 mg PO BID Spironolactone [Aldactone] 25 mg PO DAILY 08/19/19 13:15 Loperamide [Imodium] 2 mg PO QID PRN 08/20/19 02:50 Sodium Chloride Flush 0.9% [Normal Saline Flush 0.9%] 20 ml IVP PRN PRN 08/20/19 08:00 Midodrine 2.5 mg PO TIDWM 08/20/19 09:00 Enoxaparin [Lovenox] 40 mg SUBQ DAILY Insulin Glargine [Lantus Solostar] 25 unit SUBQ DAILY 08/21/19 05:00 MAGNESIUM [CHEM] DAILYLAB Subjective - Subjective Patient Reports: Resting Comfortably, No Complaints Objective Vital Signs: Vital Signs - 24 hr 08/19/19 08/19/19 08/19/19 10:00 11:00 12:00 Temperature 36.3 C L Heart Rate [ 81 77 70 Brachial] Heart Rate [ Sitting (After 1 Minute)] Heart Rate [ Standing (After 1 Minute)] Heart Rate [ Supine] Respiratory 22 23 18 Rate Blood Pressure 96/62 102/58 L 103/60 [Left Brachial artery] Blood Pressure [Right Brachial artery] Blood Pressure [Sitting (After 1 Minute)] Blood Pressure [Standing ( After 1 Minute) ] Blood Pressure [Supine] O2 Saturation 97 93 97 08/19/19 08/19/19 08/19/19 13:00 14:00 15:00 Temperature Heart Rate [ 73 72 70 Brachial] Heart Rate [ Sitting (After 1 Minute)] Heart Rate [ Standing (After 1 Minute)] Heart Rate [ Supine] Respiratory 17 14 22 Rate Blood Pressure 88/53 L 83/52 L 101/63 [Left Brachial artery] Blood Pressure [Right Brachial artery] Blood Pressure [Sitting (After 1 Minute)] Blood Pressure [Standing ( After 1 Minute) ] Blood Pressure [Supine] O2 Saturation 96 90 L 95 08/19/19 08/19/19 08/19/19 16:00 17:00 19:00 Temperature 36.9 C 36.6 C Heart Rate [ 72 70 73 Brachial] Heart Rate [ Sitting (After 1 Minute)] Heart Rate [ Standing (After 1 Minute)] Heart Rate [ Supine] Respiratory 12 15 16 Rate Blood Pressure 97/76 89/55 L 88/64 L [Left Brachial artery] Blood Pressure [Right Brachial artery] Blood Pressure [Sitting (After 1 Minute)] Blood Pressure [Standing ( After 1 Minute) ] Blood Pressure [Supine] O2 Saturation 99 99 99 08/19/19 08/19/19 08/20/19 20:00 22:17 00:07 Temperature 36.5 C 36.8 C 36.5 C Heart Rate [ 75 75 73 Brachial] Heart Rate [ Sitting (After 1 Minute)] Heart Rate [ Standing (After 1 Minute)] Heart Rate [ Supine] Respiratory 21 20 20 Rate Blood Pressure 94/59 L 116/75 98/45 L [Left Brachial artery] Blood Pressure [Right Brachial artery] Blood Pressure [Sitting (After 1 Minute)] Blood Pressure [Standing ( After 1 Minute) ] Blood Pressure [Supine] O2 Saturation 99 100 99 08/20/19 08/20/19 08/20/19 01:45 05:00 07:53 Temperature 36.6 C 36.8 C 36.8 C Heart Rate [ 75 64 74 Brachial] Heart Rate [ Sitting (After 1 Minute)] Heart Rate [ Standing (After 1 Minute)] Heart Rate [ Supine] Respiratory 16 16 20 Rate Blood Pressure 112/61 [Left Brachial artery] Blood Pressure 95/61 98/50 L [Right Brachial artery] Blood Pressure [Sitting (After 1 Minute)] Blood Pressure [Standing ( After 1 Minute) ] Blood Pressure [Supine] O2 Saturation 98 99 96 08/20/19 07:59 Temperature Heart Rate [ Brachial] Heart Rate [ 71 Sitting (After 1 Minute)] Heart Rate [ 66 Standing (After 1 Minute)] Heart Rate [ 74 Supine] Respiratory Rate Blood Pressure [Left Brachial artery] Blood Pressure [Right Brachial artery] Blood Pressure 91/48 L [Sitting (After 1 Minute)] Blood Pressure 92/61 [Standing ( After 1 Minute) ] Blood Pressure 112/61 [Supine] O2 Saturation Oxygen O2 Source [With Activity] Room air O2 Source [Without Activity] Room air O2 Source Room air I&O (Last 24 Hrs): Intake and Output Totals x24h 08/18/19 08/19/19 08/20/19 23:59 23:59 23:59 Intake Total 3690 890 100 Output Total 575 850 175 Balance 3115 40 -75 General: Alert HEENT: Mucous membr. moist/pink Neck: Supple, No JVD Neuro: Disoriented Cardiovascular: Regular rate, No murmurs Respiratory: No respiratory distress Abdomen: Soft Extremities: No edema - Results Results: Laboratory Results WBC 16.2 x10^3/uL (4.8-10.8) H 08/19/19 05:10 RBC 3.37 10^6/uL (4.70-6.10) L 08/19/19 05:10 Hgb 10.1 g/dL (14.0-18.0) L 08/19/19 05:10 Hct 31.7 % (42.0-52.0) L 08/19/19 05:10 MCV 94.1 fL (80.0-94.0) H 08/19/19 05:10 MCH 30.0 pg (27.0-31.0) 08/19/19 05:10 MCHC 31.9 g/dL (32.0-36.0) L 08/19/19 05:10 RDW 14.1 % (12.0-15.0) 08/19/19 05:10 Plt Count 227 10^3/uL (130-450) 08/19/19 05:10 MPV 12.3 fL (7.4-11.4) H 08/19/19 05:10 Neut # (Auto) 12.9 10^3/uL (1.5-6.6) H 08/19/19 05:10 Lymph # (Auto) 1.1 10^3/uL (1.5-3.5) L 08/19/19 05:10 [place] # (Auto) 1.6 10^3/uL (0.0-1.0) H 08/19/19 05:10 Eos # (Auto) 0.4 10^3/uL (0.0-0.7) 08/19/19 05:10 Baso # (Auto) 0.1 10^3/uL (0.0-0.1) 08/19/19 05:10 Absolute Nucleated RBC 0.00 x10^3/uL 08/19/19 05:10 Nucleated RBC % 0.0 /100WBC 08/19/19 05:10 Manual Slide Review Indicated 08/19/19 05:10 RBC Morph Micro Appear 1+ ANISOCYTOSIS (NORMAL) 08/19/19 05:10 Sodium 138 mmol/L (135-145) 08/19/19 05:10 Potassium 3.7 mmol/L (3.5-5.0) 08/19/19 05:10 Chloride 106 mmol/L (101-111) 08/19/19 05:10 Carbon Dioxide 23 mmol/L (21-32) 08/19/19 05:10 Anion Gap 9.0 (6-13) 08/19/19 05:10 BUN 26 mg/dL (6-20) H 08/19/19 05:10 Creatinine 1.2 mg/dL (0.6-1.2) 08/19/19 05:10 Estimated GFR (MDRD) 58 (>89) L 08/19/19 05:10 Glucose 77 mg/dL (70-100) 08/19/19 05:10 POC Whole Bld Glucose 95 mg/dL (70 - 100) 08/20/19 07:50 Glycated Hemoglobin 8.6 % (4.6-6.2) H 08/17/19 14:21 Estim Average Glucose 200 (70-100) H 08/17/19 14:21 Lactic Acid 1.2 mmol/L (0.5-2.2) 08/17/19 17:00 Calcium 8.3 mg/dL (8.5-10.3) L 08/19/19 05:10 Phosphorus 2.2 mg/dL (2.5-4.6) L 08/17/19 05:15 Magnesium 2.0 mg/dL (1.7-2.8) 08/20/19 05:30 Iron 8 ug/dL (45-182) L 08/19/19 05:10 TIBC 197 ug/dL (250-450) L 08/19/19 05:10 % Saturation 4 % (20-50) L 08/19/19 05:10 Transferrin 141 mg/dL (180-329) L 08/19/19 05:10 Total Bilirubin 0.5 mg/dL (0.2-1.0) 08/19/19 05:10 AST 24 IU/L (10-42) 08/19/19 05:10 ALT 17 IU/L (10-60) 08/19/19 05:10 Alkaline Phosphatase 65 IU/L (42-121) 08/19/19 05:10 Troponin I High Sens 2490.3 pg/mL (2.3-19.7) H* 08/18/19 05:30 C-Reactive Protein 9.3 mg/dL (0-1.0) H 08/17/19 17:00 B-Natriuretic Peptide 1765 pg/mL (5-100) H 08/18/19 05:30 Total Protein 6.0 g/dL (6.7-8.2) L 08/19/19 05:10 Albumin 2.6 g/dL (3.2-5.5) L 08/19/19 05:10 Globulin 3.4 g/dL (2.1-4.2) 08/19/19 05:10 Albumin/Globulin Ratio 0.8 (1.0-2.2) L 08/19/19 05:10 Lipase 19 U/L (22-51) L 08/16/19 22:02 Vitamin B12 707 pg/mL (180-914) 08/17/19 05:15 Folate 8.63 ng/mL (5.90 - >24.8) 08/17/19 05:15 Urine Color YELLOW 08/17/19 01:50 Urine Clarity CLEAR (CLEAR) 08/17/19 01:50 Urine pH 5.5 PH (5.0-7.5) 08/17/19 01:50 Ur Specific [place] 1.020 (1.002-1.030) 08/17/19 01:50 Urine Protein NEGATIVE mg/dL (NEGATIVE) 08/17/19 01:50 Urine Glucose (UA) >=1000 mg/dL (NEGATIVE) H 08/17/19 01:50 Urine Ketones 15 mg/dL (NEGATIVE) H 08/17/19 01:50 Urine Occult Blood NEGATIVE (NEGATIVE) 08/17/19 01:50 Urine Nitrite NEGATIVE (NEGATIVE) 08/17/19 01:50 Urine Bilirubin NEGATIVE (NEGATIVE) 08/17/19 01:50 Urine Urobilinogen 0.2 (NORMAL) E.U./dL (NORMAL) 08/17/19 01:50 Ur Leukocyte Esterase NEGATIVE (NEGATIVE) 08/17/19 01:50 Ur Microscopic Review NOT INDICATED 08/17/19 01:50 Urine Culture Comments NOT INDICATED 08/17/19 01:50 Stl C. diff Tox B Gene POSITIVE (NEGATIVE) A* 08/19/19 17:00 - Procedures Procedures: Procedures INSERTION OF INFUSION DEV INTO SUP VENA CAVA, PERC APPROACH (07/25/19) Sepsis Event Note (H) - Evaluation Current Stage of Sepsis: Ruled out
[2019-08-20] MEDS: INSULIN ASPART 300 UNIT/3 ML PEN SUBQ SCH ×4 (12:06→22:09)
[2019-08-20] MEDS: levoFLOXacin 250 MG TABLET PO SCH (12:14)
[2019-08-20 13:05] LABS: BASOPHILS # (AUTO) 0.1 10^3/uL (0.0-0.1); BASOPHILS % (AUTO) 0.7 %; EOSINOPHILS # (AUTO) 0.8 10^3/uL (0.0-0.7); EOSINOPHILS % (AUTO) 7.9 %; HGB - HEMOGLOBIN 10.1 g/dL (14.0-18.0); LYMPHOCYTES # (AUTO) 1.8 10^3/uL (1.5-3.5); LYMPHOCYTES % (AUTO) 18.7 %; MEAN CORPUSCULAR HEMOGLOBIN 29.3 pg (27.0-31.0); MEAN CORPUSCULAR HGB CONC 31.9 g/dL (32.0-36.0); MEAN CORPUSCULAR VOLUME 91.9 fL (80.0-94.0); MEAN PLATELET VOLUME 12.4 fL (7.4-11.4); MONOCYTES # (AUTO) 0.8 10^3/uL (0.0-1.0); MONOCYTES % (AUTO) 7.7 %; NEUTROPHILS # (AUTO) 6.3 10^3/uL (1.5-6.6); NEUTROPHILS % (AUTO) 64.6 %; PLT - PLATELET COUNT 221 10^3/uL (130-450); RED BLOOD COUNT 3.45 10^6/uL (4.70-6.10); RED CELL DISTRIBUTION WIDTH 14.3 % (12.0-15.0); WHITE BLOOD COUNT 9.7 x10^3/uL (4.8-10.8)
[2019-08-20 13:11] LABS: CREATININE 1.2 mg/dL (0.6-1.2)
[2019-08-20] MEDS: FERROUS GLUCONATE 324 MG TABLET PO SCH (14:46)
[2019-08-21] MEDS: SODIUM CHLORIDE FLUSH 0.9% 10 ML SYRINGE IVP SCH ×2 (00:34→10:40)
[2019-08-21] MEDS: SODIUM CHLORIDE FLUSH 0.9% 10 ML SYRINGE IVP PRN ×2 (00:34→06:12)
[2019-08-21] MEDS: INSULIN ASPART 300 UNIT/3 ML PEN SUBQ SCH ×2 (07:54→11:28)
--- NOTE | 2019-08-21 09:15 | Discharge Plan ---
"Discharge Plan for SNF / [facility] - Discharge Plan And Transition Orders Problem Reviewed?: Yes Disposition: 03 SNF DC/Xfer Condition: Stable Allergies and Adverse Reactions: Allergies Allergy/AdvReac Type Severity Reaction Status Date / Time amoxicillin Allergy Unknown Verified 08/16/19 22:19 rosuvastatin [From Crestor] Allergy Unknown Verified 08/16/19 22:19 sertraline [From Zoloft] Allergy Unknown Verified 08/16/19 22:19 simvastatin Allergy Unknown Verified 08/16/19 22:19 Sulfa (Sulfonamide Allergy Unknown Verified 08/16/19 22:19 Antibiotics) penicillin * [penicillin] AdvReac Unknown Verified 08/16/19 22:19 Sulfonylureas AdvReac Unknown Verified 08/16/19 22:19 Health Concerns: Admitted with severe weakness, which was found to be due to an acute SC, worsening of cardiomyopathy and chronic low BP. Plan of Treatment: New medications for medical management of the SC, medication adjustments for cardiomyopathy and low BP. Physical Therapy for deconditioning started. Care Goals: Strengthening and new living arrangement due to dementia plus the above diagnoses. Assessment: The plan for SNF and NH had been requested by the DPOA. - SNF / CARE HOME Transition Orders Admit to ([facility] Under the care of (Name): Dr Rios Almonte and Dr Oscar Boyer Discharge Diagnosis: (1) NSTEMI (non-ST elevated myocardial infarction) (2) Chronic HFrEF (heart failure with reduced ejection fraction) (3) Hypotension (4) C. difficile diarrhea (5) Chronic renal insufficiency, stage III (moderate) (6) Type 2 diabetes mellitus with hyperglycemia, with use of insulin (7) Diabetic foot ulcers (8) Anemia, iron deficiency (9) Generalized weakness (10) Dementia (11) [place] (hard of hearing) Medicare Certification Statement: I certify that Post Hospital shelter care is medically necessary on a continuing basis for any of the conditions for which she/he is receiving care during hospitalization. Notify PCP of admission and forward orders to primary provider for signature. Weight on admission and: Daily Call PCP immediately if weight increases by: 5 kg Other Notification Orders: Call PCP immediately if patient develops dyspnea, chest pain/tightness or edema. House Bowel Program: Yes Additional Bowel Program Orders: If no BM after 2 days, nurse may give M.O.M. 30ml PO PRN and/or ducolax Supp 1 ND and/or FANNY 250mg P.O., and/or senna 1-2 tabs PO. On day 3 nurse may give repeat above order until residents constipation is resolved. Annual Influenza Vaccine (between Jul 13 and February 09): Yes Two-step PPD per [facility] [phone] or approved exception documents: Yes Treatments & Other Orders: Daily PT and OT Oxygen Orders: None Lab Tests or X-ray Orders: BMP and Magnesium level weekly (every Sun) Medication Orders: PLEASE REFER TO THE DISCHARGE MEDICATION LIST. Insulin Orders?: Yes - Medications New Prescriptions: Aspirin [Aspirin EC] 81 mg PO DAILY #30 tablet. Carvedilol [Coreg] 3.125 mg PO BID #60 tablet Ferrous Gluconate [Iron] 240 mg PO DAILY #30 tablet Furosemide [Lasix] 20 mg PO MOWEFR #15 tablet Insulin Aspart [NovoLOG] 1 - 9 unit SUBQ 0800,1200,1700,2100 #4 pen Insulin Glargine [Lantus Solostar] 25 unit SUBQ DAILY #2 pen levoFLOXacin [Levaquin] 750 mg PO Q48H #15 tablet Loperamide [Imodium] 2 mg PO QID PRN #50 capsule PRN Reason: Diarrhea Midodrine 2.5 mg PO TIDWM #90 tablet Multivitamin W/Minerals [Theragran M] 1 tab PO DAILYWM@1000 #30 tablet Spironolactone [Aldactone] 25 mg PO DAILY #30 tablet Vancomycin [Vancocin] 125 mg PO QID #30 capsule - Diet Type: Diabetic diet Texture: Regular Liquids: Thin May have monthly special meal: Yes - Therapies | Activity Therapy: Evaluation | Treat if indicated: PT, OT Rehabilitation Potential: Maximize functional status Activity: Activity as Tolerated Weight Bearing: Full Weight Assistance Devices: Walker Follow Up: See PCP as directed by SNF doctor/provider. Insulin Orders - SNF Basal | Correction | Custom Orders: Diagnosis: Diabetes Initiate hypo and hyperglycemia protocols for BG <70 and BG >375. May check BG PRN for signs/symptoms of dysglycemia. Frequency of BG checks: [AC/Meal/HS] Basal Insulin: [X] Lantus 25 units subq as follows: daily [] Other: [] Correction Insulin: - Select the type of insulin below [Choose: Novolog 100 units /ml insulin inject subq per orders indicate below [] LOW DOSE [X] MODERATE DOSE [] MODERATE/HIGH DOSE [] HIGH DOSE GB UNITS GB UNITS GB UNITS GB UNITS 61-140 0 UNITS 61-140 0 UNITS 61-140 0 UNITS 61-140 0 UNITS 141-175 1 UNITS 141-175 1 UNITS 141-175 2 UNITS 141-175 3 UNITS 176-225 2 UNITS 176-225 3 UNITS 176-225 4 UNITS 176-225 5 UNITS 226-275 3 UNITS 226-275 5 UNITS 226-275 6 UNITS 226-275 7 UNITS 276-325 4 UNITS 276-325 7 UNITS 276-325 8 UNITS 276-325 9 UNITS 326-375 5 UNITS 326-375 9 UNITS 326-375 10 UNITS 326-375 11 UNITS >375 CONTACT MD >375 CONTACT MD >375 CONTACT MD >375 CONTACT MD"
[2019-08-21] MEDS ORDERED: FUROSEMIDE 20 MG TABLET PO ONE (09:28)
[2019-08-21] MEDS: ASPIRIN EC 81 MG TABLET PO SCH (10:39)
[2019-08-21] MEDS: ALLOPURINOL 100 MG TABLET PO SCH (10:39)
[2019-08-21] MEDS: VANCOMYCIN 125 MG CAPSULE PO SCH ×2 (10:39→11:29)
[2019-08-21] MEDS: ESCITALOPRAM 10 MG TABLET PO SCH (10:39)
[2019-08-21] MEDS: LISINOPRIL 5 MG TABLET PO SCH (10:39)
[2019-08-21] MEDS: ENOXAPARIN 40 MG/0.4 ML SYRINGE SUBQ SCH (10:39)
[2019-08-21] MEDS: MULTIVITAMIN W/MINERALS TABLET PO SCH (10:39)
[2019-08-21] MEDS: FERROUS GLUCONATE 324 MG TABLET PO SCH (10:40)
[2019-08-21] MEDS: SPIRONOLACTONE 25 MG TABLET PO SCH (10:40)
[2019-08-21] MEDS: MIDODRINE 2.5 MG TABLET PO SCH ×2 (10:40→11:29)
[2019-08-21] MEDS: CARVEDILOL 3.125 MG TABLET PO SCH (10:40)
[2019-08-21] MEDS: LORATADINE 10 MG TABLET PO SCH (10:40)
[2019-08-21] MEDS: INSULIN GLARGINE 300 UNIT/3 ML PEN SUBQ SCH (10:41)
[2019-08-21 15:38] VITALS: BP 113/63
[2019-08-22] MEDS ORDERED: FUROSEMIDE 20 MG TABLET PO SCH (09:00)
--- NOTE | 2019-08-28 10:18 | DISCHARGE SUMMARY ---
Discharge Summary Admit Date: 08/17/19 Discharge Date: 08/21/19 Discharging Provider: Dr Ernestina Moya Primary Care Provider: ARLENE Patterson Condition at Discharge: Stable Discharge Disposition: 03 [facility] DC/Xfer - DIAGNOSES Admission Diagnoses: (1) Generalized weakness (2) Leukocytosis (3) Cognitive impairment (4) Open wound of left great toe (5) Chronic heart failure with reduced ejection fraction (6) Type 2 diabetes mellitus with hyperglycemia, with long-term current use of Insulin (7) Chronic renal insufficiency, stage III (moderate) Discharge Diagnoses with Status of Each Condition: See below - HPI History of Present Illness: From the admission H&P of Dr Jalen Kenney: This is a 84 year old male with a past medical history significant for diabetes mellitus type 2, chronic renal insufficiency, and systolic heart failure who presents from home after feeling weak. He tells me that he has been undergoing debridements of his left great toe every other day this past week. He was given Percocet this past Sunday and he took one tablet that night. Yesterday morning h e took two tablets around breakfast time and he thought that he had a "reaction to the medication" and became weak and his knees were giving out. He reports that he did not fall but helped himself to the ground. He denied loss of consciousness or head trauma. He pressed his Life Alert button and EMS arrived. He does not have any complaints except for feeling weak at this time. He denies fever, cough, dyspnea, chest pain, dysuria. He is concerned about going home as he feels he may not be able to take care of himself. He does have a friend who checks on him up to four times a week. He reports he has become intermittently confused at times and that this has been going on for over a year. He was receiving IV antibiotics for the past two months for an infected left greater toe. He does not know what antibiotics he was receiving. While in the ER, he continued to feel weak and was unable to ambulate. He did not feel safe to go home as he cannot care for himself. Labs were significant for a leukocytosis with a left shift. Urinalysis and chest x-ray were unremarkable. He was admitted for worsening weakness, management of a diabetic toe infection and possible acute cognitive impairment. Of note, I did discuss code status with the patient. He told me that he had CPR a few years ago after heart surgery. He does not want to go through that again and would like to be a DNR. - HOSPITAL COURSE Hospital Course: (1) NSTEMI (non-ST elevated myocardial infarction) On the first evening, his labs returned with very elevated hs-troponins (4100>> 3435>> 2490). His EKG is 100% v-paced. The DPOA made decision for no transfer for higher level of care, and medical management was continued. He was started on aspirin (since he was not taking it daily, despite a Hx of CABG) and put on therapeutic Lovenox for 48 hours. Because of low blood pressure, he also slowly had the addition of Coreg. A statin was indicated but his allergy list showed a Simvistatin and Crestor allergy. (2) Chronic HFrEF (heart failure with reduced ejection fraction) The patient had a previous ejection fraction of 30-35%, from Echo done here in 03/30. The Hospitalist reviewed old records from his primary care provider erin bush and he is followed by Dr. Jayna Zelaya MD at [place] [facility]. He sees him regularly, for his ischemic cardiomyopathy and to follow his pacer rhythm/battery. With his last visit in early July, the patient was hypotensive to 88 systolic, and his Lisinopril had been decreased from 5 mg to 2.5 mg. An new Echo was done at this admission. It showed LVEF of 25% and PA pressure of 65 mmHg. He was started on Coreg bid, Spironolactone daily and Lasix on Sun, Sun, Sun. (3) Hypotension His initial systolic BP readings were 100-130, but after starting cardiac meds, he ran 82-100 systolic. He was therefore started on Midodrine 2.5 mg tid with meals and discharged on this, to maintain systolic BP >100. (4) C. difficile diarrhea In the final 2 days of this hospitalization, he developed watery diarrhea. A C. diff PCR returned (+), and he had contact precautions ordered and was started on oral Vancomycin and Imodium prn and discharged on these. (5) Chronic renal insufficiency, stage III (moderate) His BUN/creat at admission were 29/1.4. His fluid management was slowly adjusted, and with Spironolactone and LAsix. BUN/creat at discharge were 29/1.2. (6) Type 2 diabetes mellitus with hyperglycemia, with use of insulin He had an A1c of 8.6 at admission and ran glucose checks of 372,at admission to 150's - 250's. He was on adjusted Lantus Insulin dose and also ss Reg Insulin a nd a carb-controlled diet while here. (7) Diabetic foot ulcers The patient had been receiving IV antibiotics for his infected toe which was later changed to PO Levaquin. The [facility] [employer], Estephania Ramos, saw him in consult and gave directions to continue po Levaquin and not to remove the PICC line. Several blood cultures were done and were all neg to date. His WBC was 16.3 at admission, and improved to 9.7 before discharge. (8) Anemia, iron deficiency At admission his Hgb was 11.6, and despite hemoconcentration with gentle diurtesis, his Hgb became 10.1. Serum B12 and Folate levels were adequate, but Iron stores were very low and he was started on Iron supplement orally. (9) Generalized weakness This was likely from infectious and/or inflammatory processes, in addition to acute/recent NSTEMI and worsening systolic heart failure. He started to participate in PT, once his BP was stabilized and was discharged to SNF for PT rehab. (10) Dementia Pt reports that he feels confused at times. He was not completely sure why he is here but his cognition imrproved slightly. There were no focal findings to indicate a CVA. He was cooperative with PT and oriented mostly just to self. His power of family law attorney is on file dated March 13, 2019. Dr. Sudeep Stiles at [phone] was contacted. The second name on the list is El Taylor. Mr. Taylor was available at [phone]. The DPOA made decision for no transfer for higher level of care, and requested SNF and eventual care home placement. (11) [place] (hard of hearing) His friend brought in his hearing aides, not sure if they are being used. - ALLERGIES Allergies/Adverse Reactions: Allergies Allergy/AdvReac Type Severity Reaction Status Date / Time amoxicillin Allergy Unknown Verified 08/16/19 22:19 rosuvastatin [From Crestor] Allergy Unknown Verified 08/16/19 22:19 sertraline [From Zoloft] Allergy Unknown Verified 08/16/19 22:19 simvastatin Allergy Unknown Verified 08/16/19 22:19 Sulfa (Sulfonamide Allergy Unknown Verified 08/16/19 22:19 Antibiotics) penicillin * [penicillin] AdvReac Unknown Verified 08/16/19 22:19 Sulfonylureas AdvReac Unknown Verified 08/16/19 22:19 - MEDICATIONS Home Medications: Ambulatory Orders Medication Instructions Recorded Confirmed metFORMIN [Glucophage] 500 mg PO TID 03/30/18 08/17/19 Calcium Carbonate/Vitamin D3 1 tab PO BID 06/11/19 08/17/19 [Caltrate 600 Plus D3 Tablet] Escitalopram Oxalate 5 mg PO DAILY 06/11/19 08/17/19 Lisinopril [Zestril] 2.5 mg PO DAILY 06/11/19 08/17/19 Allopurinol 100 mg PO DAILY 08/17/19 08/17/19 Allopurinol [Zyloprim] 100 mg PO DAILY tablet 08/21/19 Aspirin [Aspirin EC] 81 mg PO DAILY #30 tablet. 08/21/19 Calcium Carbonate [Tums (Calcium 500 mg PO BID PRN tablet 08/21/19 Carbonate 500mg)] Carvedilol [Coreg] 3.125 mg PO BID #60 tablet 08/21/19 Escitalopram [Lexapro] 5 mg PO DAILY tablet 08/21/19 Ferrous Gluconate [Iron] 240 mg PO DAILY #30 tablet 08/21/19 Furosemide [Lasix] 20 mg PO MOWEFR #15 tablet 08/21/19 Insulin Aspart [NovoLOG] 1 - 9 unit SUBQ 08/21/19 0800,1200,1700,2100 #4 pen Insulin Glargine [Lantus Solostar] 25 unit SUBQ DAILY #2 pen 08/21/19 Loperamide [Imodium] 2 mg PO QID PRN #50 capsule 08/21/19 Midodrine 2.5 mg PO TIDWM #90 tablet 08/21/19 Multivitamin W/Minerals [Theragran 1 tab PO DAILYWM@1000 #30 tablet 08/21/19 M] Spironolactone [Aldactone] 25 mg PO DAILY #30 tablet 08/21/19 Vancomycin [Vancocin] 125 mg PO QID #30 capsule 08/21/19 levoFLOXacin [Levaquin] 750 mg PO Q48H #15 tablet 08/21/19 - PHYSICAL EXAM AT DISCHARGE General Appearance: positive: No acute distress, Alert, Other (Cheeks flushed.) Eyes Bilateral: positive: Normal inspection ENT: positive: ENT inspection nml Neck: positive: Nml inspection, No JVD Respiratory: positive: No respiratory distress, Breath sounds nml Cardiovascular: positive: Regular rate & rhythm Skin: positive: Color nml Extremities: positive: No pedal edema, Other (Several toes are bandaged) Neurologic/Psychiatric: positive: Disoriented to place, Disoriented to time, Other (Non-focal exam) - LABS Result Diagrams: 08/20/19 12:36 08/20/19 12:36 - DIAGNOSTIC IMAGING Diagnostic Imaging Results: Final report reviewed - SEPSIS Current Stage of Sepsis: Ruled out - FOLLOW UP Follow Up: See PCP and Cardiology in follow-up. - TIME SPENT Time Spent in Discharge (Minutes): 65
== END 2019-08-21 16:11 | DRG 264 ==
LOC: EDUNIT# → ED 21:48 → MS2 08-17 05:02 → OBSVTOIN 08-17 18:07 → ICU 08-17 19:43 → MS2 08-19 20:14
PROVIDERS: ADMIT Internal Medicine; ATTEND Internal Medicine
PROC: 0JBR0ZZ Excision of Left Foot Subcutaneous Tissue and Fascia, Open Approach (ICD-10-PCS; principal; 2019-08-18)
DX: R53.1 Weakness (principal); D72.829 Elevated white blood cell count, unspecified; R41.0 Disorientation, unspecified; L08.9 Local infection of the skin and subcutaneous tissue, unspecified; S91.102A Unspecified open wound of left great toe without damage to nail, initial encounter; X58.XXXA Exposure to other specified factors, initial encounter; I21.4 Non-ST elevation (NSTEMI) myocardial infarction; I38 Endocarditis, valve unspecified; I50.22 Chronic systolic (congestive) heart failure; M86.9 Osteomyelitis, unspecified; F05 Delirium due to known physiological condition; L97.526 Non-pressure chronic ulcer of other part of left foot with bone involvement without evidence of necrosis; F32.9 Major depressive disorder, single episode, unspecified; A04.71 Enterocolitis due to Clostridium difficile, recurrent; I95.89 Other hypotension; I25.5 Ischemic cardiomyopathy; F03.90 Unspecified dementia, unspecified severity, without behavioral disturbance, psychotic disturbance, mood disturbance, and anxiety; I25.10 Atherosclerotic heart disease of native coronary artery without angina pectoris; Z60.2 Problems related to living alone; I49.9 Cardiac arrhythmia, unspecified; E11.22 Type 2 diabetes mellitus with diabetic chronic kidney disease; N18.3 Chronic kidney disease, stage 3 (moderate); E11.621 Type 2 diabetes mellitus with foot ulcer; E11.65 Type 2 diabetes mellitus with hyperglycemia; E11.69 Type 2 diabetes mellitus with other specified complication; D50.9 Iron deficiency anemia, unspecified; I27.20 Pulmonary hypertension, unspecified; H91.93 Unspecified hearing loss, bilateral; Z66 Do not resuscitate; Z95.1 Presence of aortocoronary bypass graft; Z88.8 Allergy status to other drugs, medicaments and biological substances; Z95.0 Presence of cardiac pacemaker; Z79.899 Other long term (current) drug therapy; Z79.4 Long term (current) use of insulin; Z95.828 Presence of other vascular implants and grafts; Z91.81 History of falling
CPT/HCPCS: 36415; 70450; 71046; 80048; 80053; 81003; 82607; 82746; 83036; 83540; 83605; 83690; 83735; 83880; 84100; 84466; 84484; 85025; 86140; 87040; 87493; 93005; 93306; 94761; 96360; 96361; 96372; 97110; 97161; 97164; 97166; 97530; 99284; 99285; A9270; G0378; J1650; J1815; J7120; J8499; 81001; 87086

== ENCOUNTER 2019-08-25 08:00 | Outpatient (CLI) | payer MEDICARE, MEDICAID ==
[2019-08-25 15:02] LABS: BASOPHILS # (AUTO) 0.1 10^3/uL (0.0-0.1); BASOPHILS % (AUTO) 0.5 %; EOSINOPHILS # (AUTO) 0.6 10^3/uL (0.0-0.7); EOSINOPHILS % (AUTO) 6.2 %; LYMPHOCYTES # (AUTO) 1.5 10^3/uL (1.5-3.5); LYMPHOCYTES % (AUTO) 16.2 %; MEAN CORPUSCULAR HEMOGLOBIN 29.7 pg (27.0-31.0); MEAN CORPUSCULAR HGB CONC 31.4 g/dL (32.0-36.0); MEAN CORPUSCULAR VOLUME 94.4 fL (80.0-94.0); MEAN PLATELET VOLUME 12.4 fL (7.4-11.4); MONOCYTES # (AUTO) 0.8 10^3/uL (0.0-1.0); NEUTROPHILS # (AUTO) 6.5 10^3/uL (1.5-6.6); NEUTROPHILS % (AUTO) 68.3 %; PLT - PLATELET COUNT 245 10^3/uL (130-450); RED BLOOD COUNT 3.37 10^6/uL (4.70-6.10); RED CELL DISTRIBUTION WIDTH 14.6 % (12.0-15.0); WHITE BLOOD COUNT 9.5 x10^3/uL (4.8-10.8)
[2019-08-25 15:12] LABS: CALCIUM 8.7 mg/dL (8.5-10.3); CREATININE 1.2 mg/dL (0.6-1.2)
== END 2019-08-25 23:59 | disposition home or self-care (01) ==
LOC: LAB.R 08:00
DX: R79.89 Other specified abnormal findings of blood chemistry (principal)
CPT/HCPCS: 80048; 85025

== ENCOUNTER 2019-09-02 07:40 | Outpatient (CLI) | payer MEDICARE, MEDICAID ==
[2019-09-02 08:45] LABS: CALCIUM 8.5 mg/dL (8.5-10.3); CREATININE 1.2 mg/dL (0.6-1.2)
== END 2019-09-02 23:59 | disposition home or self-care (01) ==
LOC: LAB.R 07:40
PROVIDERS: ATTEND Family Medicine
DX: A04.72 Enterocolitis due to Clostridium difficile, not specified as recurrent (principal); E83.42 Hypomagnesemia
CPT/HCPCS: 80048; 83735

== ENCOUNTER 2019-09-12 17:45 | Outpatient (CLI) | payer MEDICARE, MEDICAID | END 2019-09-12 23:59 | disposition home or self-care (01) | LOC: LAB.R 17:45 | PROVIDERS: ATTEND Family Medicine | DX: A04.72 Enterocolitis due to Clostridium difficile, not specified as recurrent (principal) | CPT/HCPCS: 87493 ==

== ENCOUNTER 2019-09-15 08:00 | Outpatient (CLI) | payer MEDICARE, MEDICAID ==
[2019-09-30 14:24] LABS: CALCIUM 8.8 mg/dL (8.5-10.3); CREATININE 1.3 mg/dL (0.6-1.2); MAGNESIUM 2.3 mg/dL (1.7-2.8)
== END 2019-09-15 23:59 | disposition home or self-care (01) ==
LOC: LAB.R 08:00
PROVIDERS: ATTEND Family Medicine
DX: A04.72 Enterocolitis due to Clostridium difficile, not specified as recurrent (principal)
CPT/HCPCS: 80048; 83735

== ENCOUNTER 2019-09-18 12:15 | Outpatient (CLI) | payer MEDICARE, MEDICAID ==
[2019-09-18 16:43] LABS: BASOPHILS # (AUTO) 0.1 10^3/uL (0.0-0.1); BASOPHILS % (AUTO) 0.8 %; EOSINOPHILS # (AUTO) 0.7 10^3/uL (0.0-0.7); HGB - HEMOGLOBIN 13.5 g/dL (14.0-18.0); LYMPHOCYTES # (AUTO) 2.1 10^3/uL (1.5-3.5); LYMPHOCYTES % (AUTO) 22.9 %; MEAN CORPUSCULAR HEMOGLOBIN 29.5 pg (27.0-31.0); MEAN CORPUSCULAR HGB CONC 32.1 g/dL (32.0-36.0); MEAN CORPUSCULAR VOLUME 91.7 fL (80.0-94.0); MEAN PLATELET VOLUME 12.3 fL (7.4-11.4); MONOCYTES # (AUTO) 0.7 10^3/uL (0.0-1.0); MONOCYTES % (AUTO) 7.6 %; NEUTROPHILS # (AUTO) 5.6 10^3/uL (1.5-6.6); NEUTROPHILS % (AUTO) 60.9 %; PLT - PLATELET COUNT 226 10^3/uL (130-450); RED BLOOD COUNT 4.58 10^6/uL (4.70-6.10); RED CELL DISTRIBUTION WIDTH 14.6 % (12.0-15.0); WHITE BLOOD COUNT 9.2 x10^3/uL (4.8-10.8)
== END 2019-09-18 23:59 | disposition home or self-care (01) ==
LOC: LAB.R 12:15
DX: A04.72 Enterocolitis due to Clostridium difficile, not specified as recurrent (principal)
CPT/HCPCS: 80053; 85025; 85651

== ENCOUNTER 2019-09-23 08:00 | Outpatient (CLI) | payer MEDICARE, MEDICAID ==
[2019-09-23 00:50] LABS: CREATININE 1.1 mg/dL (0.6-1.2); MAGNESIUM 1.8 mg/dL (1.7-2.8)
== END 2019-09-23 23:59 ==
LOC: LAB.R 08:00
PROVIDERS: ATTEND Family Medicine
DX: D64.9 Anemia, unspecified (principal); I21.4 Non-ST elevation (NSTEMI) myocardial infarction
CPT/HCPCS: 80048; 83735

== ENCOUNTER 2019-09-30 08:40 | Outpatient (CLI) | payer MEDICARE, MEDICAID ==
[2019-09-30 09:16] LABS: BASOPHILS # (AUTO) 0.1 10^3/uL (0.0-0.1); BASOPHILS % (AUTO) 1.1 %; EOSINOPHILS # (AUTO) 0.6 10^3/uL (0.0-0.7); EOSINOPHILS % (AUTO) 6.6 %; HGB - HEMOGLOBIN 12.9 g/dL (14.0-18.0); LYMPHOCYTES # (AUTO) 2.4 10^3/uL (1.5-3.5); LYMPHOCYTES % (AUTO) 26.6 %; MEAN CORPUSCULAR HEMOGLOBIN 29.2 pg (27.0-31.0); MEAN CORPUSCULAR HGB CONC 31.5 g/dL (32.0-36.0); MEAN CORPUSCULAR VOLUME 92.8 fL (80.0-94.0); MONOCYTES # (AUTO) 0.8 10^3/uL (0.0-1.0); MONOCYTES % (AUTO) 9.2 %; NEUTROPHILS % (AUTO) 56.2 %; PLT - PLATELET COUNT 264 10^3/uL (130-450); RED BLOOD COUNT 4.42 10^6/uL (4.70-6.10); RED CELL DISTRIBUTION WIDTH 14.6 % (12.0-15.0); WHITE BLOOD COUNT 8.8 x10^3/uL (4.8-10.8)
== END 2019-09-30 23:59 | disposition home or self-care (01) ==
LOC: LAB.R 08:40
DX: D50.9 Iron deficiency anemia, unspecified (principal)
CPT/HCPCS: 80053; 85025; 85651

== ENCOUNTER 2019-10-10 20:25 | Outpatient (CLI) | payer MEDICARE, MEDICAID ==
[2019-10-10 21:16] LABS: BASOPHILS # (AUTO) 0.1 10^3/uL (0.0-0.1); BASOPHILS % (AUTO) 0.5 %; EOSINOPHILS # (AUTO) 0.4 10^3/uL (0.0-0.7); EOSINOPHILS % (AUTO) 3.8 %; HGB - HEMOGLOBIN 11.3 g/dL (14.0-18.0); LYMPHOCYTES # (AUTO) 1.1 10^3/uL (1.5-3.5); LYMPHOCYTES % (AUTO) 9.9 %; MEAN CORPUSCULAR HEMOGLOBIN 28.5 pg (27.0-31.0); MEAN CORPUSCULAR HGB CONC 31.1 g/dL (32.0-36.0); MEAN CORPUSCULAR VOLUME 91.7 fL (80.0-94.0); MEAN PLATELET VOLUME 12.2 fL (7.4-11.4); MONOCYTES # (AUTO) 1.1 10^3/uL (0.0-1.0); MONOCYTES % (AUTO) 9.9 %; NEUTROPHILS # (AUTO) 8.6 10^3/uL (1.5-6.6); NEUTROPHILS % (AUTO) 75.4 %; PLT - PLATELET COUNT 185 10^3/uL (130-450); RED BLOOD COUNT 3.96 10^6/uL (4.70-6.10); WHITE BLOOD COUNT 11.4 x10^3/uL (4.8-10.8)
[2019-10-10 21:31] LABS: ALBUMIN 3.3 g/dL (3.2-5.5); ALBUMIN/GLOBULIN RATIO 0.9 (1.0-2.2); BILIRUBIN,TOTAL 0.5 mg/dL (0.2-1.0); CALCIUM 8.9 mg/dL (8.5-10.3); TOTAL PROTEIN 6.9 g/dL (6.7-8.2)
== END 2019-10-10 23:59 | disposition home or self-care (01) ==
LOC: LAB.R 20:25
DX: I95.9 Hypotension, unspecified (principal); D64.9 Anemia, unspecified
CPT/HCPCS: 80053; 85025

== ENCOUNTER 2019-10-13 06:00 | Outpatient (CLI) | payer MEDICARE, MEDICAID | END 2019-10-13 23:59 | disposition home or self-care (01) | LOC: LAB.R 06:00 | DX: A04.72 Enterocolitis due to Clostridium difficile, not specified as recurrent (principal) | CPT/HCPCS: 87493 ==

== ENCOUNTER 2019-10-20 18:27 | Outpatient (CLI) | payer MEDICARE, MEDICAID | END 2019-10-20 18:28 | disposition critical access hospital (66) | LOC: EMS 18:27 | PROVIDERS: ATTEND Surgery | DX: L08.9 Local infection of the skin and subcutaneous tissue, unspecified (principal) | CPT/HCPCS: A0425; A0429 ==

== ENCOUNTER 2019-10-20 18:33 | Observation (INO) | payer MEDICARE, MEDICAID ==
[2019-10-20 19:09] LABS: BASOPHILS # (AUTO) 0.1 10^3/uL (0.0-0.1); BASOPHILS % (AUTO) 0.8 %; EOSINOPHILS # (AUTO) 1.1 10^3/uL (0.0-0.7); EOSINOPHILS % (AUTO) 11.3 %; HGB - HEMOGLOBIN 11.8 g/dL (14.0-18.0); LYMPHOCYTES # (AUTO) 2.4 10^3/uL (1.5-3.5); LYMPHOCYTES % (AUTO) 24.2 %; MEAN CORPUSCULAR HEMOGLOBIN 30.1 pg (27.0-31.0); MEAN CORPUSCULAR HGB CONC 32.8 g/dL (32.0-36.0); MEAN CORPUSCULAR VOLUME 91.8 fL (80.0-94.0); MONOCYTES # (AUTO) 0.7 10^3/uL (0.0-1.0); MONOCYTES % (AUTO) 7.2 %; NEUTROPHILS # (AUTO) 5.5 10^3/uL (1.5-6.6); PLT - PLATELET COUNT 248 10^3/uL (130-450); RED BLOOD COUNT 3.92 10^6/uL (4.70-6.10); RED CELL DISTRIBUTION WIDTH 15.3 % (12.0-15.0); WHITE BLOOD COUNT 9.8 x10^3/uL (4.8-10.8)
[2019-10-20] MEDS ORDERED: VANCOMYCIN INJ 1.5 GM in SODIUM CHLORIDE 0.9% 500 ML IV STA (19:25)
[2019-10-20] MEDS ORDERED: CEFEPIME 2 GM in SODIUM CHLORIDE 0.9% MINIBAG 100 ML IV STA (19:25)
--- NOTE | 2019-10-20 19:28 | ED Physician Documentation ---
PD HPI LOWER EXT INJURY - Stated complaint Stated Complaint: L TOE INFECTION/ DEMENTIA - Chief complaint Chief Complaint: Ext Problem - History obtained from History obtained from: Patient, Other (POA Bob Stiles by phone [phone]) - History of Present Illness PD HPI LOW EXT INJURY LOCATION: Left, Toe Type of injury: Other (Worsening infection of L great toe, despite several rounds of abx complicated by C. diff; sent by SNF for ortho eval) Review of Systems Unable to obtain: Dementia PD PAST MEDICAL HISTORY - Past Medical History Past Medical History: Yes Cardiovascular: Coronary artery disease, Arrhythmia, Valve disorder Respiratory: None Neuro: None Endocrine/Autoimmune: Type 2 diabetes GI: C.difficile : Renal insuffiency HEENT: Chronic hearing loss Psych: Depression Musculoskeletal: None Derm: None - Past Surgical History Past Surgical History: Yes Cardiovascular: CABG, Pacemaker HEENT: Cataracts - Present Medications Home Medications: Ambulatory Orders Medication Instructions Recorded Confirmed metFORMIN [Glucophage] 500 mg PO TID 03/30/18 09/23/19 Escitalopram Oxalate 5 mg PO DAILY 06/11/19 09/23/19 Lisinopril [Zestril] 2.5 mg PO DAILY 06/11/19 09/23/19 Allopurinol 100 mg PO DAILY 08/17/19 09/23/19 Aspirin [Aspirin EC] 81 mg PO DAILY #30 tablet. 08/21/19 09/23/19 Calcium Carbonate [Tums (Calcium 500 mg PO BID PRN tablet 08/21/19 09/23/19 Carbonate 500mg)] Ferrous Gluconate [Iron] 240 mg PO DAILY #30 tablet 08/21/19 09/23/19 Furosemide [Lasix] 20 mg PO MOWEFR #15 tablet 08/21/19 09/23/19 Insulin Aspart [NovoLOG] 1 - 9 unit SUBQ 08/21/19 09/23/19 0800,1200,1700,2100 #4 pen Loperamide [Imodium] 2 mg PO QID PRN #50 capsule 08/21/19 09/23/19 Multivitamin W/Minerals [Theragran 1 tab PO DAILYWM@1000 #30 tablet 08/21/19 09/23/19 M] Spironolactone [Aldactone] 25 mg PO DAILY #30 tablet 08/21/19 09/23/19 carvediloL [Coreg] 3.125 mg PO BID #60 tablet 08/21/19 09/23/19 Glucagon,Human Recombinant 1 mg IM ONCE PRN 09/09/19 09/23/19 [Glucagon Emergency Kit] Midodrine 2.5 mg PO TID 09/09/19 09/23/19 Saccharomyces Boulardii [Florastor] 1 cap PO BID 09/09/19 09/23/19 Insulin Glargine [Lantus Solostar] 28 unit SUBQ DAILY 09/23/19 09/23/19 Vancomycin HCl [Firvanq] 125 mg PO BID 09/23/19 09/23/19 - Allergies Allergies/Adverse Reactions: Allergies Allergy/AdvReac Type Severity Reaction Status Date / Time amoxicillin Allergy Unknown Verified 09/23/19 11:07 rosuvastatin [From Crestor] Allergy Unknown Verified 09/23/19 11:07 sertraline [From Zoloft] Allergy Unknown Verified 09/23/19 11:07 simvastatin Allergy Unknown Verified 09/23/19 11:07 Sulfa (Sulfonamide Allergy Unknown Verified 09/23/19 11:07 Antibiotics) penicillin * [penicillin] AdvReac Unknown Verified 09/23/19 11:07 Sulfonylureas AdvReac Unknown Verified 09/23/19 11:07 - Social History Does the pt smoke?: No Smoking Status: Never smoker Does the pt drink ETOH?: No Does the pt have substance abuse?: No - Immunizations Immunizations are current?: Yes - POLST Patient has POLST: No PD ED PE NORMAL - Vitals Vital signs reviewed: Yes - General General: No acute distress, Other (A/Ox2) - HEENT HEENT: PERRL, EOMI - Neck Neck: Supple, no meningeal sign, No bony TTP - Cardiac Cardiac: RRR, No murmur - Respiratory Respiratory: No respiratory distress, Clear bilaterally - Abdomen Abdomen: Soft, Non tender - Back Back: No CVA TTP, No spinal TTP - Derm Derm: Normal color, Warm and dry - Extremities Extremities: Other (Deep ulcer L great toe with cellulitis) - Neuro Neuro: No motor deficit, No sensory deficit, Normal speech - Psych Psych: Normal mood, Normal affect Results - Vitals Vitals: Vital Signs - 24 hr 10/20/19 18:34 Temperature 36.4 C L Heart Rate 59 L Respiratory 18 Rate Blood Pressure 124/67 O2 Saturation 100 Oxygen O2 Source [With Activity] Room air O2 Source [Without Activity] Room air O2 Source Room air - Labs Labs: Laboratory Tests 10/20/19 10/20/19 10/20/19 19:05 19:05 19:05 WBC 9.8 RBC 3.92 L Hgb 11.8 L Hct 36.0 L MCV 91.8 MCH 30.1 MCHC 32.8 RDW 15.3 H Plt Count 248 MPV 11.0 Manual Slide Review Indicated ESR 31 H Sodium 137 Potassium 5.8 H Chloride 104 Carbon Dioxide 27 Anion Gap 6.0 BUN 26 H Creatinine 1.0 Estimated GFR (MDRD) 71 L Glucose 326 H Calcium 8.9 Total Bilirubin 0.4 AST 18 ALT 16 Alkaline Phosphatase 70 C-Reactive Protein 1.6 H Total Protein 6.6 L Albumin 3.4 Globulin 3.2 Albumin/Globulin Ratio 1.1 Lipase 57 H - Rads (name of study) X-ray of the left great toe Radiology: EMP read contemporaneously (Positive for osteomyelitis) PD MEDICAL DECISION MAKING - ED course ED course: This is an 84-year-old gentleman with a recalcitrant diabetic foot infection with osteomyelitis of the left great toe that is failed outpatient treatment and complicated by recent C. difficile. Spoke with Dr. Storey for consult, at 7:30 PM and will see after admission. And subsequently spoke with Dr. Narayan for admission at 7:38 PM. We agreed on c efepime, Flagyl and vancomycin. Departure - Departure Disposition: 66 [facility] DC/Xfer Clinical Impression: Osteomyelitis of great toe of left foot Condition: Serious
[2019-10-20 19:31] LABS: ALBUMIN 3.4 g/dL (3.2-5.5); ALBUMIN/GLOBULIN RATIO 1.1 (1.0-2.2); BILIRUBIN,TOTAL 0.4 mg/dL (0.2-1.0); CALCIUM 8.9 mg/dL (8.5-10.3); CRP - C-REACTIVE PROTEIN 1.6 mg/dL (0-1.0); TOTAL PROTEIN 6.6 g/dL (6.7-8.2)
--- NOTE | 2019-10-20 19:31 | XRAY Report ---
Reason: toe infection Procedure Date: 10/20/2019 Accession Number: [id number] / [id number] Procedure: XR - Toe(s) LT CPT Code: Final Report FULL RESULT: EXAM: LEFT TOE RADIOGRAPHY EXAM DATE: 10/20/2019 06:57 PM. CLINICAL HISTORY: Toe infection. COMPARISON: None. TECHNIQUE: 3 views. FINDINGS: Bones: The tuft of the distal phalanx of the great toe is exposed noting some cortical irregularity medially. No fractures or other bone lesion seen. Joints: No subluxations. No significant degenerative changes. Soft Tissues: Soft tissue defect, tip of great toe. IMPRESSION: Osteomyelitis involving distal phalanx of great toe. RADIA
[2019-10-20] MEDS ORDERED: metroNIDAZOLE 500 MG/100 ML 500 MG/100 ML BAG IV ONE (19:37)
[2019-10-20] MEDS ORDERED: SODIUM CHLORIDE FLUSH 0.9% 10 ML SYRINGE IVP PRN (19:39)
[2019-10-20] MEDS ORDERED: oxyCODONE 5 MG TABLET PO PRN (19:39)
[2019-10-20] MEDS ORDERED: ACETAMINOPHEN 325 MG TABLET PO PRN (19:39)
[2019-10-20] MEDS ORDERED: VANCOMYCIN PER PHARMACY 100 GM in SODIUM CHLORIDE 0.9% 250 ML IV SCH (20:00)
[2019-10-20] MEDS ORDERED: SODIUM CHLORIDE 0.9% 1,000 ML IV SCH (20:00)
--- NOTE | 2019-10-20 20:05 | HISTORY & PHYSICAL EXAMINATION ---
Chief Complaint - Chief Complaint Chief Complaint: diabetic foot ulcer History of Present Illness - Admitted From Admitted From:: [facility] ED - History Obtained From Records Reviewed: yes History obtained from: patient/ ED physician Exam Limitations: Patient has some cognitive impairment - History of Present Illness HPI Comment/Other: Patient is an 84 y/o male with a diabetic foot ulcer on the left great toe who presented to the ED from [facility] after the resident physician (Dr Almonte) rounded and felt the ulcer appeared to be worsening. Thus making an argument for failed outpatient management. To this point it had been manage at the [facility]. The concern was hyperemia on the affected to. Work up included a n xray of the left foot which showed osteomyelitis in the distal phalanx of the left great toe. He is not febrile and WBC was normal. His ESR was 31 and CRP was 1.6. At the time of exam there was no observable drainage from there site. The patient denied any chest pain, dyspnea, abd pain, nausea vomiting or diarrhea. He was admitted to the hospital in August 2019. He had an NSTEMI then with a Troponin level of 4100 and an EF of 25%. His DPOA opted for medical management at [facility]. He also had C. diff for which he was discharged on oral vancomycin. It is reported that he just completed the regimen yesterday 10/19/19. He denied any episodes of diarrhea yesterday. Dr Storey (orthopedic surgeon) was contacted and is agreeable to seeing the patient in the hospital. Thus he was admitted. History - Past Medical History Cardiovascular: reports: Coronary artery disease, Arrhythmia, Valve disorder Respiratory: reports: None Neuro: reports: None Endocrine/Autoimmune: reports: Type 2 diabetes GI: reports: C.difficile : reports: Renal insuffiency HEENT: reports: Chronic hearing loss Psych: reports: Depression Musculoskeletal: reports: None Derm: reports: None MRSA Hx?: No - Past Surgical History Cardiovascular: reports: CABG, Pacemaker HEENT: reports: Cataracts - Family & Social History Family History Comment/Other: He reports that his father and brother were "dry alcoholics" and that they had emotional problems. Does not report any other family history. Social History Notes: His is presenting from [facility]. However he normaly lives at home alone. He does have a caregiver who checks on him up to four times a week and drives him to appointments. He does not smoke or drink alcohol. - Substance History Use: Uses substance without health or social issues: NONE - POLST Patient has POLST: No POLST Status: DNR Meds/Allgy - Home Medications Home Medications: Ambulatory Orders Medication Instructions Recorded Confirmed metFORMIN [Glucophage] 500 mg PO TID 03/30/18 09/23/19 Escitalopram Oxalate 5 mg PO DAILY 06/11/19 09/23/19 Lisinopril [Zestril] 2.5 mg PO DAILY 06/11/19 09/23/19 Allopurinol 100 mg PO DAILY 08/17/19 09/23/19 Aspirin [Aspirin EC] 81 mg PO DAILY #30 tablet. 08/21/19 09/23/19 Calcium Carbonate [Tums (Calcium 500 mg PO BID PRN tablet 08/21/19 09/23/19 Carbonate 500mg)] Ferrous Gluconate [Iron] 240 mg PO DAILY #30 tablet 08/21/19 09/23/19 Furosemide [Lasix] 20 mg PO MOWEFR #15 tablet 08/21/19 09/23/19 Insulin Aspart [NovoLOG] 1 - 9 unit SUBQ 08/21/19 09/23/19 0800,1200,1700,2100 #4 pen Loperamide [Imodium] 2 mg PO QID PRN #50 capsule 08/21/19 09/23/19 Multivitamin W/Minerals [Theragran 1 tab PO DAILYWM@1000 #30 tablet 08/21/19 09/23/19 M] Spironolactone [Aldactone] 25 mg PO DAILY #30 tablet 08/21/19 09/23/19 carvediloL [Coreg] 3.125 mg PO BID #60 tablet 08/21/19 09/23/19 Glucagon,Human Recombinant 1 mg IM ONCE PRN 09/09/19 09/23/19 [Glucagon Emergency Kit] Midodrine 2.5 mg PO TID 09/09/19 09/23/19 Saccharomyces Boulardii [Florastor] 1 cap PO BID 09/09/19 09/23/19 Insulin Glargine [Lantus Solostar] 28 unit SUBQ DAILY 09/23/19 09/23/19 Vancomycin HCl [Firvanq] 125 mg PO BID 09/23/19 09/23/19 - Allergies Allergies/Adverse Reactions: Allergies Allergy/AdvReac Type Severity Reaction Status Date / Time amoxicillin Allergy Unknown Verified 09/23/19 11:07 rosuvastatin [From Crestor] Allergy Unknown Verified 09/23/19 11:07 sertraline [From Zoloft] Allergy Unknown Verified 09/23/19 11:07 simvastatin Allergy Unknown Verified 09/23/19 11:07 Sulfa (Sulfonamide Allergy Unknown Verified 09/23/19 11:07 Antibiotics) penicillin * [penicillin] AdvReac Unknown Verified 09/23/19 11:07 Sulfonylureas AdvReac Unknown Verified 09/23/19 11:07 Review of Systems - Constitutional Constitutional: denies: Fatigue, Fever, Chills - Eyes Eyes: denies: Pain, Vision loss, Dipolpia - Ears, Nose & Throat Ears, Nose & Throat: denies: Tinnitus, Vertigo - Cardiovascular Cariovascular: denies: Irregular heart rate, Chest pain, Edema, Lightheadedness, Syncope, Exertional dyspnea, Decr. exercise tolerance - Respiratory Respiratory: denies: Cough, Sputum production, Wheezing, SOB at rest, SOB with exertion - Gastrointestinal Gastrointestinal: reports: Diarrhea. denies: Abdominal pain, Abdominal distention, Constipation, Nausea, Vomiting - Genitourinary Genitourinary: denies: Dysuria, Frequency, Urgency, Hematuria - Musculoskeletal Musculoskeletal: denies: Muscle pain, Back pain - Integumentary Integumentary: denies: Rash, Pruritis, Lesions, Dryness - Neurological Neurological: reports: Memory problems. denies: General weakness, Focal weakness, Headache, Dizziness, Numbness - Psychiatric Psychiatric: denies: Depression, Anxiety - Endocrine Endocrine: denies: Polyuria, Polydypsia - Hematologic/Lymphatic Hematologic/Lymphatic: denies: Anemia, Bruising Prior Level of Functionality: Patient currently resides at Care of [facility]. He gets around on a wheelchair and is maximum assist for transfers Exam - Vital Signs Vital Signs: Vital Signs x48h Temp Pulse Resp BP Pulse Ox 10/20/19 18:34 36.4 C L 59 L 18 124/67 100 - Physical Exam General Appearance: positive: Alert. negative: No acute distress Eyes Bilateral: positive: Normal inspection, PERRL, EOMI ENT: positive: ENT inspection nml, No signs of dehydration Neck: positive: Nml inspection, No JVD, Trachea midline Respiratory: positive: Chest non-tender, Breath sounds nml. negative: Wheezes, Rales, Rhonchi Cardiovascular: positive: Other (regular rate. paced rhythm) Abdomen: positive: Non-tender, Nml bowel sounds, No distention. negative: Guarding, Rebound Back: positive: Nml inspection Skin: positive: Color nml Extremities: positive: Non-tender, No pedal edema, Other (left great toe wound) Neurologic/Psychiatric: positive: Oriented x3, Mood/affect nml Conclusion/Plan - Problem List (1) Osteomyelitis of great toe of left foot Conclusion/Plan: Patient has failed out patient management. Patient was given vancomycin, cefepime and flagyl in the ED. In the absence of parameters supporting sepsis (fever, elevated WBC) CRP is slightly elevated at 31. I will not continue antibiotics for now. Patient just completed treatment for C. diff yesterday Dr Storey was consulted and will see the patient tomorrow (2) C. difficile diarrhea Conclusion/Plan: Diarrhea resolved yesterday Patient denied any episodes today Patient completed oral vancomycin regimen yesterday at [facility] (3) Diabetes mellitus Conclusion/Plan: Moderate dose sliding scale insulin Last HgA1C was 8.6 Lantus increased from 20 to 25 units subq daily Hold metformin Accu checks qACHS. Carb-controlled diet Qualifiers: Diabetes mellitus type: type 2 (4) CHF (congestive heart failure) Conclusion/Plan: Patient of Coreg, Lasix, spironolactone and lisinopril LVEF from echo done during admission in 08/2019 was 25% Has a pacemaker and is ventricularly paced [employer] Dr Jayna Zelaya at [place] [facility] (5) Depression Conclusion/Plan: On escitalopram (6) Coronary artery disease Conclusion/Plan: At last admission Troponin levels were as high as 4100. DPOA made decision not to transfer for higher level of care Medically optimized on Coreg, lisinopril, aspirin. On lasix and spironolactone as well. Allergic to statin (7) Chronic renal insufficiency, stage III (moderate) Conclusion/Plan: Will monitor. estimated GFR today is 71 - Lab Results Fish Bones: 10/20/19 19:05 10/20/19 19:05 Core Measures - Anticipated LOS I expect patient to be DC'd or transferred within 96 hours.: Yes - DVT/VTE - Prophylaxis VTE/DVT Device ordered at admit?: Yes VTE/DVT Prophylaxis med ordered at admit?: Yes
[2019-10-20 20:09] LABS: PLATELET ESTIMATE, MANUAL NORMAL (130-450,000) (NORMAL); PLATELET MORPHOLOGY NORMAL APPEARANCE (NORMAL); RBC MORPHOLOGY (MULTIPLE) NORMAL APPEARANCE (NORMAL)
[2019-10-20 20:10] LABS: DIFFERENTIAL COMMENT MANUAL=AUTO DIFF
[2019-10-20] MEDS ORDERED: INSULIN ASPART 300 UNIT/3 ML PEN SUBQ SCH (21:00)
[2019-10-20] MEDS: HEPARIN 5,000 UNIT/ML VIAL SUBQ SCH (22:21)
[2019-10-20] MEDS: SODIUM CHLORIDE FLUSH 0.9% 10 ML SYRINGE IVP SCH (23:45)
[2019-10-21] MEDS ORDERED: metroNIDAZOLE 500 MG/100 ML 500 MG/100 ML BAG IV SCH (04:00)
[2019-10-21] MEDS ORDERED: ZINC OXIDE 20% OINT 30 GM TUBE TOP PRN (05:10)
[2019-10-21 05:14] LABS: BASOPHILS # (AUTO) 0.1 10^3/uL (0.0-0.1); BASOPHILS % (AUTO) 0.7 %; EOSINOPHILS # (AUTO) 0.9 10^3/uL (0.0-0.7); EOSINOPHILS % (AUTO) 10.3 %; HGB - HEMOGLOBIN 10.5 g/dL (14.0-18.0); LYMPHOCYTES # (AUTO) 2.1 10^3/uL (1.5-3.5); LYMPHOCYTES % (AUTO) 24.3 %; MEAN CORPUSCULAR HEMOGLOBIN 29.1 pg (27.0-31.0); MEAN CORPUSCULAR HGB CONC 32.2 g/dL (32.0-36.0); MEAN CORPUSCULAR VOLUME 90.3 fL (80.0-94.0); MEAN PLATELET VOLUME 10.5 fL (7.4-11.4); MONOCYTES # (AUTO) 0.6 10^3/uL (0.0-1.0); MONOCYTES % (AUTO) 6.7 %; NEUTROPHILS # (AUTO) 4.9 10^3/uL (1.5-6.6); NEUTROPHILS % (AUTO) 57.5 %; PLT - PLATELET COUNT 213 10^3/uL (130-450); RED BLOOD COUNT 3.61 10^6/uL (4.70-6.10); RED CELL DISTRIBUTION WIDTH 15.1 % (12.0-15.0); WHITE BLOOD COUNT 8.5 x10^3/uL (4.8-10.8)
[2019-10-21 05:34] LABS: BUN - BLOOD UREA NITROGEN 24 mg/dL (6-20); CALCIUM 8.2 mg/dL (8.5-10.3); CARBON DIOXIDE - CO2 25 mmol/L (21-32); CHLORIDE 109 mmol/L (101-111); GFR - MDRD 71 (>89); GLUCOSE 219 mg/dL (70-100); SODIUM 140 mmol/L (135-145)
[2019-10-21 06:30] LABS: CRP - C-REACTIVE PROTEIN < 1.0 mg/dL (0-1.0)
[2019-10-21] MEDS ORDERED: PANTOPRAZOLE 40 MG TABLET PO SCH (07:00)
[2019-10-21] MEDS ORDERED: CEFEPIME 2 GM in SODIUM CHLORIDE 0.9% MINIBAG 100 ML IV SCH (08:00)
[2019-10-21] MEDS: SODIUM CHLORIDE FLUSH 0.9% 10 ML SYRINGE IVP SCH (08:14)
[2019-10-21] MEDS: HEPARIN 5,000 UNIT/ML VIAL SUBQ SCH ×3 (08:14→11:11)
[2019-10-21] MEDS ORDERED: ASPIRIN CHEW 81 MG TABLET PO SCH (09:00)
[2019-10-21] MEDS ORDERED: INSULIN REGULAR HUMAN 300 UNIT/3 ML VIAL SUBQ SCH (09:00)
[2019-10-21] MEDS ORDERED: carvediloL 3.125 MG TABLET PO SCH (09:00)
[2019-10-21 09:05] LABS: HB2 TOTAL 10.5 g/dL; HEMOGLOBIN A1C 0.78 g/dL; HEMOGLOBIN A1C % 8.9 % (4.6-6.2)
[2019-10-21] MEDS: INSULIN GLARGINE 300 UNIT/3 ML PEN SUBQ SCH ×2 (09:51→11:10)
[2019-10-21] MEDS ORDERED: FUROSEMIDE 20 MG TABLET PO SCH (11:00)
--- NOTE | 2019-10-21 11:00 | PROVIDER PROGRESS NOTE ---
Subjective - Prog Note Date Prog Note Date: 10/21/19 Prog Note Time: 10:56 - Subjective Pt reports feeling: No change Objective - Vital Signs/Intake & Output Vital Signs: Vital Signs x48h Temp Pulse Resp BP Pulse Ox 10/21/19 07:38 36.5 C 66 16 119/62 98 10/21/19 05:06 36.1 C L 65 16 113/59 L 98 Intake & Output: Intake & Output 10/18/19 10/19/19 10/20/19 10/21/19 23:59 23:59 23:59 23:59 Intake Total 132.320 4670 Output Total 300 700 Balance 550.000 350 - Lab Results Fish Bones: 10/21/19 05:06 10/21/19 05:06 Other Labs: Lab Results x24hrs 10/21/19 10/21/19 10/21/19 Range/Units 05:06 05:06 05:06 WBC (4.8-10.8) x10^3/uL RBC (4.70-6.10) 10^6/uL Hgb (14.0-18.0) g/dL Hct (42.0-52.0) % MCV (80.0-94.0) fL MCH (27.0-31.0) pg MCHC (32.0-36.0) g/dL RDW (12.0-15.0) % Plt Count (130-450) 10^3/uL MPV (7.4-11.4) fL Neut # (Auto) (1.5-6.6) 10^3/uL Lymph # (Auto) (1.5-3.5) 10^3/uL Centre # (Auto) (0.0-1.0) 10^3/uL Eos # (Auto) (0.0-0.7) 10^3/uL Baso # (Auto) (0.0-0.1) 10^3/uL Absolute Nucleated RBC x10^3/uL Band Neuts % (Manual) Abnorm Lymph % (Manual) Nucleated RBC % /100WBC Neutrophils # (Manual) Lymphocytes # (Manual) Monocytes # (Manual) Eosinophils # (Manual) Basophils # (Manual) Differential Comment Manual Slide Review Platelet Estimate (NORMAL) Platelet Morphology (NORMAL) RBC Morph Micro Appear (NORMAL) ESR 31 H (0-20) mm/Hr Sodium 140 (135-145) mmol/L Potassium 4.1 (3.5-5.0) mmol/L Chloride 109 (101-111) mmol/L Carbon Dioxide 25 (21-32) mmol/L Anion Gap 6.0 (6-13) BUN 24 H (6-20) mg/dL Creatinine 1.0 (0.6-1.2) mg/dL Estimated GFR (MDRD) 71 L (>89) Glucose 219 H (70-100) mg/dL Glycated Hemoglobin 8.9 H (4.6-6.2) % Estim Average Glucose 209 H (70-100) Calcium 8.2 L (8.5-10.3) mg/dL Total Bilirubin (0.2-1.0) mg/dL AST (10-42) IU/L ALT (10-60) IU/L Alkaline Phosphatase (42-121) IU/L C-Reactive Protein < 1.0 (0-1.0) mg/dL Total Protein (6.7-8.2) g/dL Albumin (3.2-5.5) g/dL Globulin (2.1-4.2) g/dL Albumin/Globulin Ratio (1.0-2.2) Lipase (22-51) U/L 10/21/19 10/20/19 10/20/19 Range/Units 05:06 19:05 19:05 WBC 8.5 (4.8-10.8) x10^3/uL RBC 3.61 L (4.70-6.10) 10^6/uL Hgb 10.5 L (14.0-18.0) g/dL Hct 32.6 L (42.0-52.0) % MCV 90.3 (80.0-94.0) fL MCH 29.1 (27.0-31.0) pg MCHC 32.2 (32.0-36.0) g/dL RDW 15.1 H (12.0-15.0) % Plt Count 213 (130-450) 10^3/uL MPV 10.5 (7.4-11.4) fL Neut # (Auto) 4.9 (1.5-6.6) 10^3/uL Lymph # (Auto) 2.1 (1.5-3.5) 10^3/uL Centre # (Auto) 0.6 (0.0-1.0) 10^3/uL Eos # (Auto) 0.9 H (0.0-0.7) 10^3/uL Baso # (Auto) 0.1 (0.0-0.1) 10^3/uL Absolute Nucleated RBC 0.00 x10^3/uL Band Neuts % (Manual) Abnorm Lymph % (Manual) Nucleated RBC % 0.0 /100WBC Neutrophils # (Manual) Lymphocytes # (Manual) Monocytes # (Manual) Eosinophils # (Manual) Basophils # (Manual) Differential Comment Manual Slide Review Platelet Estimate (NORMAL) Platelet Morphology (NORMAL) RBC Morph Micro Appear (NORMAL) ESR 31 H (0-20) mm/Hr Sodium 137 (135-145) mmol/L Potassium 5.8 H (3.5-5.0) mmol/L Chloride 104 (101-111) mmol/L Carbon Dioxide 27 (21-32) mmol/L Anion Gap 6.0 (6-13) BUN 26 H (6-20) mg/dL Creatinine 1.0 (0.6-1.2) mg/dL Estimated GFR (MDRD) 71 L (>89) Glucose 326 H (70-100) mg/dL Glycated Hemoglobin (4.6-6.2) % Estim Average Glucose (70-100) Calcium 8.9 (8.5-10.3) mg/dL Total Bilirubin 0.4 (0.2-1.0) mg/dL AST 18 (10-42) IU/L ALT 16 (10-60) IU/L Alkaline Phosphatase 70 (42-121) IU/L C-Reactive Protein 1.6 H (0-1.0) mg/dL Total Protein 6.6 L (6.7-8.2) g/dL Albumin 3.4 (3.2-5.5) g/dL Globulin 3.2 (2.1-4.2) g/dL Albumin/Globulin Ratio 1.1 (1.0-2.2) Lipase 57 H (22-51) U/L 10/20/19 Range/Units 19:05 WBC 9.8 (4.8-10.8) x10^3/uL RBC 3.92 L (4.70-6.10) 10^6/uL Hgb 11.8 L (14.0-18.0) g/dL Hct 36.0 L (42.0-52.0) % MCV 91.8 (80.0-94.0) fL MCH 30.1 (27.0-31.0) pg MCHC 32.8 (32.0-36.0) g/dL RDW 15.3 H (12.0-15.0) % Plt Count 248 (130-450) 10^3/uL MPV 11.0 (7.4-11.4) fL Neut # (Auto) 5.5 (1.5-6.6) 10^3/uL Lymph # (Auto) 2.4 (1.5-3.5) 10^3/uL Centre # (Auto) 0.7 (0.0-1.0) 10^3/uL Eos # (Auto) 1.1 H (0.0-0.7) 10^3/uL Baso # (Auto) 0.1 (0.0-0.1) 10^3/uL Absolute Nucleated RBC 0.00 x10^3/uL Band Neuts % (Manual) Not Reportable Abnorm Lymph % (Manual) Not Reportable Nucleated RBC % 0.0 /100WBC Neutrophils # (Manual) Not Reportable Lymphocytes # (Manual) Not Reportable Monocytes # (Manual) Not Reportable Eosinophils # (Manual) Not Reportable Basophils # (Manual) Not Reportable Differential Comment MANUAL=AUTO DIFF Manual Slide Review Indicated Platelet Estimate NORMAL (130-450,000) (NORMAL) Platelet Morphology NORMAL APPEARANCE (NORMAL) RBC Morph Micro Appear NORMAL APPEARANCE (NORMAL) ESR (0-20) mm/Hr Sodium (135-145) mmol/L Potassium (3.5-5.0) mmol/L Chloride (101-111) mmol/L Carbon Dioxide (21-32) mmol/L Anion Gap (6-13) BUN (6-20) mg/dL Creatinine (0.6-1.2) mg/dL Estimated GFR (MDRD) (>89) Glucose (70-100) mg/dL Glycated Hemoglobin (4.6-6.2) % Estim Average Glucose (70-100) Calcium (8.5-10.3) mg/dL Total Bilirubin (0.2-1.0) mg/dL AST (10-42) IU/L ALT (10-60) IU/L Alkaline Phosphatase (42-121) IU/L C-Reactive Protein (0-1.0) mg/dL Total Protein (6.7-8.2) g/dL Albumin (3.2-5.5) g/dL Globulin (2.1-4.2) g/dL Albumin/Globulin Ratio (1.0-2.2) Lipase (22-51) U/L Assessment/Plan - Problem List (1) Osteomyelitis of great toe of left foot Impression: stable. Chronic osteomyelitis x months. currently not toxic PLAN: Recommend a peripheral vascular consult preop to see if patient has a bypassable lesion. This should be done first Full note dictated. to improve odds of a distal amputation healing.
--- NOTE | 2019-10-21 11:05 | CONSULTATION NOTE ---
DATE OF SERVICE: 10/21/2019 Physician: Constantino Storey MD ORTHOPEDIC CONSULTATION REFERRING PHYSICIAN: Gilmar Mcmillan MD of the emergency room department. CHIEF COMPLAINT: "My right toe is infected." HISTORY OF PRESENT ILLNESS: Patient is an 84-year-old male, resident in a chair at [facility], who was admitted to the hospital for an evaluation of his left great toe. He apparently has had evidence of a slow healing wound on the tip of his left great toe for some months. Apparently, he has also had evidence of bony involvement of the distal phalanx of the toe. He has been treated intermittently with IV antibiotics. This has led to him developing C. difficile in his GI tract. He was admitted to determine if he was suitable for surgical intervention at this point. Speaking with patient and a friend that has the power of environmental attorney, he has had this problem going on for several months. Currently, he is not toxic from the toe infection. He has not had any fever or drainage from the toe. Biggest concern is his chronic problems including cardiovascular and renal issues as well as his current C. difficile infection in his GI tract. Patient has not had a formal vascular surgery consult in the past. Previous ABIs were at less than 70%. PHYSICAL EXAMINATION: Patient's right great toe was evaluated. There is some mild swelling and erythema involving the great toe down to the MTP joint. He has an eschar on the tip of his great toe. There is no active drainage or fluctuance of the toe. There is no lymphangitis noted. IMAGING: X-rays that were taken of the toe shows evidence of bony involvement involving the distal phalanx of the great toe. ASSESSMENT 1. Chronic osteomyelitis of the left great toe distal phalanx. 2. Diabetes mellitus. 3. History of congestive heart failure. 4. History of coronary artery disease. 5. Peripheral vascular disease. 6. Clostridium difficile diarrhea. 5. History of renal insufficiency. PLAN: Discussed with patient and his power of environmental attorney friend the pros and cons of proceeding with any kind of surgical intervention for his toe. In view of his ABIs being less than 90, would recommend obtaining peripheral vascular disease consult preoperatively since he currently does not appear to be toxic from his toe problem. The toe problem has been a chronic situation. We wanted to reestablish better circulation to the foot and toe prior to doing any surgical intervention to increase the likelihood that he will be able to heal the surgical wounds. TD: 10/21/2019 10:54 ROSSI
[2019-10-21] MEDS ORDERED: SPIRONOLACTONE 25 MG TABLET PO SCH (11:21)
[2019-10-21] MEDS ORDERED: INSULIN ASPART 300 UNIT/3 ML PEN SUBQ SCH (12:00)
--- NOTE | 2019-10-21 12:14 | Ultrasound Report ---
Reason: weak pause, toe infection Procedure Date: 10/21/2019 Accession Number: [id number] / [id number] Procedure: US - Ankle Brachial Index CPT Code: Final Report FULL RESULT: EXAM: BILATERAL ANKLE/BRACHIAL INDEX EXAM DATE: 10/21/2019 11:04 AM. CLINICAL HISTORY: Weak pulse, toe infection. COMPARISON: None. TECHNIQUE: A blood pressure cuff and pulse volume recording Doppler ultrasound was used to evaluate the arterial pressures in the arms and ankle. No images were acquired. FINDINGS: Brachial pressure: Right brachial artery: 123/67 mmHg, index 1.00 Left brachial artery: 130/69 mmHg, index 1.00 Right ankle pressures: Posterior tibial artery: 108/57 mmHg, index 0.87. Preserved waveform with mildly delayed upstroke. Dorsalis pedis artery: Preserved waveform with mildly delayed upstroke. Left ankle pressures: Posterior tibial artery: 102/50 mmHg, index 0.87. Preserved waveform with mildly delayed upstroke. Dorsalis pedis artery: Preserved waveform with mildly delayed upstroke. IMPRESSION: 1. Right ankle/brachial index: 0.87. 2. Left ankle/brachial index: 0.78. Preserved arterial flow with mildly decreased upstroke bilaterally, possibly mild inflow disease. ANKLE/BRACHIAL INDEX REFERENCE STANDARDS 1.0-1.4: Normal 0.90-0.99: Borderline < 0.9: Abnormal RADIA
[2019-10-21] MEDS ORDERED: VANCOMYCIN INJ 1.5 GM in SODIUM CHLORIDE 0.9% 500 ML IV SCH (13:00)
--- NOTE | 2019-10-21 13:26 | Discharge Plan ---
"Discharge Plan for SNF / [facility] - Discharge Plan And Transition Orders Problem Reviewed?: Yes Disposition: 03 SNF DC/Xfer Condition: Poor Allergies and Adverse Reactions: Allergies Allergy/AdvReac Type Severity Reaction Status Date / Time amoxicillin Allergy Unknown Verified 09/23/19 11:07 rosuvastatin [From Crestor] Allergy Unknown Verified 09/23/19 11:07 sertraline [From Zoloft] Allergy Unknown Verified 09/23/19 11:07 simvastatin Allergy Unknown Verified 09/23/19 11:07 Sulfa (Sulfonamide Allergy Unknown Verified 09/23/19 11:07 Antibiotics) penicillin * [penicillin] AdvReac Unknown Verified 09/23/19 11:07 Sulfonylureas AdvReac Unknown Verified 09/23/19 11:07 Health Concerns: chronic osteomyelitis of great toe of left foot, hx of recurrent C.Dif Plan of Treatment: orthopedics surgeon would like pt had periphreal vascular consult first. Discussed with pt's DPOA and pt himself, both declined to have surgery now. Discussed with pt's PCP, Dr. Almonte, for out-pt vascular surgeon consult. Pt's DPOA and pt himself both are very concern of pt's recurrent C.diff infection, and would like to have no antibiotics for him now. pt has no fever/chill, not elevated WBC, CRP is less 1. orthopedics surgeon assessed pt, pt has currently not toxic, and chronic osteomyelitis for couple of months. Pt's wound is no drainage, not opened wound. pt is not prescribed antibiotics now. Discussed with pt's PCP, Dr. Almonte, for current care plan, and would like pt followup his PCP closely. Care Goals: stabilization and improvement, and infection control of his left toe infection Assessment: discussed with pt and his DPOA, both understood and agreed the care plan. - SNF / [facility] Transition Orders Admit to (Facility): [facility] Under the care of (Name): Dr. Almonte [facility] Discharge Diagnosis: left toe chronic osteomyelitis, hx of recurrent C.Diff infection, DM2, CHF, depression, hx of CAD, CKD Medicare Certification Statement: I certify that [facility] alf care is medically necessary on a continuing basis for any of the conditions for which she/he is receiving care during hospitalization. Notify PCP of admission and forward orders to primary provider for signature. Weight on admission and: Daily Call PCP immediately if weight increases by: 2 kg Other Notification Orders: Call PCP immediately if patient develops dyspnea, chest pain/tightness or edema. House Bowel Program: Yes Additional Bowel Program Orders: If no BM after 2 days, nurse may give M.O.M. 30ml PO PRN and/or ducolax Supp 1 W[place] and/or FANNY 250mg P.O., and/or senna 1-2 tabs PO. On day 3 nurse may give repeat above order until residents constipation is resolved. Annual Influenza Vaccine (between Jul 13 and February 09): Yes Two-step PPD per [facility] [id number] or approved exception documents: Yes Treatments & Other Orders: orthopedics surgeon would like pt had periphreal vascular consult first. Discussed with pt's DPOA and pt himself, both declined to have surgery now. Discussed with pt's PCP, Dr. Almonte, for out-pt vascular surgeon consult. Pt's DPOA and pt himself both are very concern of pt's recurrent C.diff infection, and would like to have no antibiotics for him now. pt has no fever/chill, not elevated WBC, CRP is less 1. orthopedics surgeon assessed pt, pt has currently not toxic, and chronic osteomyelitis for couple of months. Pt's wound is no drainage, not opened wound. pt is not prescribed antibiotics now. Discussed with pt's PCP, Dr. Almonte, for current care plan, and would like pt followup his PCP closely. Medication Orders: PLEASE REFER TO THE DISCHARGE MEDICATION LIST. Insulin Orders?: No - Diet Type: Geriatric Texture: Regular Liquids: Thin May have monthly special meal: Yes - Therapies | Activity Rehabilitation Potential: Maximize functional status Activity: Activity as Tolerated"
--- NOTE | 2019-10-21 13:38 | DISCHARGE SUMMARY ---
"Discharge Summary Admit Date: 10/20/19 Discharge Date: 10/21/19 Discharging Provider: SONG Primary Care Provider: Viri Alvarezingilmer Condition at Discharge: Poor Discharge Disposition: 03 SNF DC/Xfer Discharge Facility Name: [facility] - DIAGNOSES Admission Diagnoses: (1) Osteomyelitis of great toe of left foot (2) C. difficile diarrhea (3) Diabetes mellitus (4) CHF (congestive heart failure) (5) Depression (6) Coronary artery disease (7) Chronic renal insufficiency, stage III (moderate) Discharge Diagnoses with Status of Each Condition: (1) Osteomyelitis of great toe of left foot orthopedics surgeon defer the procedure and advise pt had periphreal vascular consult first. Discussed with pt's DPOA and pt himself, both declined to have surgery now. Discussed with pt's PCP, Dr. Almonte, for out-pt vascular surgeon consult. Pt's DPOA and pt himself both are very concern of pt's recurrent C.diff infection, and would like to have no antibiotics for him now. pt has no fever/chill, not elevated WBC, CRP is less 1. orthopedics surgeon assessed pt, pt currently has not toxic, and chronic osteomyelitis for couple of months. Pt's wound is no drainage, not opened wound. pt is not prescribed antibiotics now. Discussed with pt's PCP, Dr. Almonte, for current care plan, and advise pt followup his PCP closely. (2) C. difficile diarrhea stable. pt has no diarrhea now. C.diff test is negative. (3) Diabetes mellitus stable, followup PCP for management (4) CHF (congestive heart failure) stable. 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 Narayan's HPI on 10/20/19 Patient is an 84 y/o male with a diabetic foot ulcer on the left great toe who presented to the ED from [facility] after the resident physician (Dr Almonte) rounded and felt the ulcer appeared to be worsening. Thus making an argument for failed outpatient management. To this point it had been manage at the [facility] clinic. The concern was hyperemia on the affected to. Work up included an xray of the left foot which showed osteomyelitis in the distal phalanx of the left great toe. He is not febrile and WBC was normal. His ESR was 31 and CRP was 1.6. At the time of exam there was no observable drainage from there site. The patient denied any chest pain, dyspnea, abd pain, nausea vomiting or diarrhea. He was admitted to the hospital in August 2019. He had an NSTEMI then with a Troponin level of 4100 and an EF of 25%. His DPOA opted for medical management at [facility]. He also had C. diff for which he was discharged on oral vancomycin. It is reported that he just completed the regimen yesterday 10/19/19. He denied any episodes of diarrhea yesterday. Dr Storey (orthopedic surgeon) was contacted and is agreeable to seeing the patient in the hospital. Thus he was admitted. - CONSULTS | PROCEDURES Consultations: Dr. Storey Procedures: no surgery - HOSPITAL COURSE Hospital Course: pt was admitted for chronic left toe infection. pt was not treated with anti biotics by admission physician. pt has no fever, chill. pt's WBC is normal, CRP is less than 1. pt and pt's DPOA declined to have antibiotics now. pt's wound is not opened, not drainage. Pt's wound was consulted with orthopedics surgeon. Surgeon recommend defer the surgeon now and would consider surgery after pt had vascular surgeon evaluation first. pt's GYPSY on left lower extremity is 0.78. I discussed with pt's medical conditions with pt and pt's DPAO, both agreed the care plan. I also discussed the care plan with pt's PCP, Dr. Almonte. The detail hospital course is as the below. (1) Osteomyelitis of great toe of left foot orthopedics surgeon defer the procedure and advise pt had periphreal vascular consult first. Discussed with pt's DPOA and pt himself, both declined to have surgery now. Discussed with pt's PCP, Dr. Almonte, for out-pt vascular surgeon consult. Pt's DPOA and pt himself both are very concern of pt's recurrent C.diff infection, and would like to have no antibiotics for him now. pt has no fever/chill, not elevated WBC, CRP is less 1. orthopedics surgeon assessed pt, pt currently has not toxic, and chronic osteomyelitis for couple of months. Pt's wound is no drainage, not opened wound. pt is not prescribed antibiotics now. Discussed with pt's PCP, Dr. Almonte, for current care plan, and advise pt followup his PCP closely. (2) C. difficile diarrhea stable. pt has no diarrhea now. C.diff test is negative. (3) Diabetes mellitus stable, followup PCP for management (4) CHF (congestive heart failure) stable. 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 (5) Depression stable (6) hx of Coronary artery disease stable (7) Chronic renal insufficiency stable - ALLERGIES Allergies/Adverse Reactions: Allergies Allergy/AdvReac Type Severity Reaction Status Date / Time amoxicillin Allergy Unknown Verified 09/23/19 11:07 rosuvastatin [From Crestor] Allergy Unknown Verified 09/23/19 11:07 sertraline [From Zoloft] Allergy Unknown Verified 09/23/19 11:07 simvastatin Allergy Unknown Verified 09/23/19 11:07 Sulfa (Sulfonamide Allergy Unknown Verified 09/23/19 11:07 Antibiotics) penicillin * [penicillin] AdvReac Unknown Verified 09/23/19 11:07 Sulfonylureas AdvReac Unknown Verified 09/23/19 11:07 - MEDICATIONS Home Medications: Ambulatory Orders Medication Instructions Recorded Confirmed Escitalopram Oxalate 5 mg PO DAILY 06/11/19 10/21/19 Lisinopril [Zestril] 2.5 mg PO DAILY 06/11/19 10/21/19 Allopurinol 100 mg PO DAILY 08/17/19 10/21/19 Aspirin [Aspirin EC] 81 mg PO DAILY #30 tablet. 08/21/19 10/21/19 Calcium Carbonate [Tums (Calcium 500 mg PO BID PRN tablet 08/21/19 10/21/19 Carbonate 500mg)] Ferrous Gluconate [Iron] 240 mg PO DAILY #30 tablet 08/21/19 10/21/19 Furosemide [Lasix] 20 mg PO MOWEFR #15 tablet 08/21/19 10/21/19 Loperamide [Imodium] 2 mg PO QID PRN #50 capsule 08/21/19 10/21/19 carvediloL [Coreg] 3.125 mg PO BID #60 tablet 08/21/19 10/21/19 Glucagon,Human Recombinant 1 mg IM ONCE PRN 09/09/19 10/21/19 [Glucagon Emergency Kit] Midodrine 2.5 mg PO TIDWM 09/09/19 10/21/19 Insulin Glargine [Lantus Solostar] 30 unit SUBQ DAILY 09/23/19 10/21/19 Acetaminophen 1,000 mg PO Q8H PRN 10/21/19 10/21/19 Insulin Aspart [NovoLOG] 1 - 9 unit SUBQ QID 10/21/19 10/21/19 Insulin Aspart [Novolog] 3 unit SUBQ BID 10/21/19 10/21/19 Multivitamin W/Minerals [Theragran 1 tab PO DAILY 10/21/19 10/21/19 M] - PHYSICAL EXAM AT DISCHARGE General Appearance: positive: No acute distress, Alert. negative: Lethargic Eyes Bilateral: positive: Normal inspection, PERRL, EOMI, No lid inflammation ENT: positive: ENT inspection nml, Pharynx nml, No signs of dehydration. negative: Purulent nasal drainage Neck: positive: Nml inspection, Thyroid nml, No JVD, Trachea midline. negative: Thyromegaly, Lymphadenopathy (R), Lymphadenopathy (L), Stiff neck, Tracheal deviation Respiratory: positive: Chest non-tender, No respiratory distress, Breath sounds nml. negative: Wheezes, Rales, Rhonchi Cardiovascular: positive: Regular rate & rhythm, No murmur, No gallop. negative: Irregularly irregular, Extrasystoles, Tachycardia, Bradycardia, JVD present, Systolic murmur, Diastolic murmur Peripheral Pulses: positive: 2+, Other (weak (+1) pulse on dorsalis pedis of left foot) Abdomen: positive: Non-tender, No organomegaly, Nml bowel sounds, No distention. negative: Tenderness, Guarding, Rebound Back: positive: Nml inspection. negative: CVA tenderness (R), CVA tenderness (L) Skin: positive: Warm, Dry, Other (left toe is mild to moderate swelling, erythema. the top of left toe is covered with scar tissue, without open. ). negative: Cyanosis, Diaphoresis, Pallor Extremities: negative: Calf tenderness, Joel's sign/cords Neurologic/Psychiatric: positive: Oriented x3, Mood/affect nml. negative: Weakness, Sensory loss, Facial droop, Slurred/abnml speech, Depressed mood/affect - LABS Result Diagrams: 10/21/19 05:06 10/21/19 05:06 - FOLLOW UP Follow Up: orthopedics surgeon defer surgery for pt now, would like pt had periphreal vascular consult first. Discussed with pt's DPOA and pt himself, both declined to have surgery now. Discussed with pt's PCP, Dr. Almonte, for out-pt vascular surgeon consult. Pt's DPOA and pt himself both are very concern of pt's recurrent C.diff infection, and decline to have antibiotics for him now. pt has no fever/chill, not elevated WBC, CRP is less 1. orthopedics surgeon assessed pt, pt has currently not toxic, and chronic osteomyelitis for couple of months. Pt's wound has no drainage, not opened. Discussed with pt's PCP, Dr. Almonte, for current care plan, and would like pt followup his PCP closely. - TIME SPENT Time Spent in Discharge (Minutes): 50"
[2019-10-21 16:15] VITALS: BP 135/73
== END 2019-10-21 16:17 | disposition home or self-care (01) ==
LOC: EDUNIT# → ED 18:33 → MS2 19:39 → INTOOBSV 19:39 → UNDOADMOB 19:39 → MS2 10-21 12:03
PROVIDERS: ADMIT Internal Medicine; ATTEND Nurse Practitioner Gerontology
DX: E11.69 Type 2 diabetes mellitus with other specified complication (principal); M86.672 Other chronic osteomyelitis, left ankle and foot; L03.032 Cellulitis of left toe; E11.621 Type 2 diabetes mellitus with foot ulcer; L97.526 Non-pressure chronic ulcer of other part of left foot with bone involvement without evidence of necrosis; F03.90 Unspecified dementia, unspecified severity, without behavioral disturbance, psychotic disturbance, mood disturbance, and anxiety; I25.10 Atherosclerotic heart disease of native coronary artery without angina pectoris; I50.9 Heart failure, unspecified; F32.9 Major depressive disorder, single episode, unspecified; E11.22 Type 2 diabetes mellitus with diabetic chronic kidney disease; N18.3 Chronic kidney disease, stage 3 (moderate); E11.51 Type 2 diabetes mellitus with diabetic peripheral angiopathy without gangrene; I25.2 Old myocardial infarction; Z95.1 Presence of aortocoronary bypass graft; Z95.0 Presence of cardiac pacemaker; Z86.19 Personal history of other infectious and parasitic diseases; Z79.4 Long term (current) use of insulin; Z66 Do not resuscitate; Z79.899 Other long term (current) drug therapy; Z79.82 Long term (current) use of aspirin; Z88.8 Allergy status to other drugs, medicaments and biological substances
CPT/HCPCS: 36415; 73660; 80048; 80053; 83036; 83690; 85025; 85651; 86140; 87493; 93922; 96361; 96365; 96366; 96368; 96372; 99285; A9270; G0378; J1815; J3370

== ENCOUNTER 2019-10-23 14:58 | Outpatient (CLI) | payer MEDICARE, MEDICAID ==
--- NOTE | 2019-10-24 12:33 | Ultrasound Report ---
Reason: CHRONIC CELLULITIS LT GREAT TOE Procedure Date: 10/23/2019 Accession Number: [id number] / [id number] Procedure: US - Duplex Lwr Ext Arterial LT CPT Code: Final Report FULL RESULT: EXAM: LEFT LOWER EXTREMITY ARTERIAL DOPPLER ULTRASOUND EXAM DATE: 10/23/2019 03:40 PM. CLINICAL HISTORY: CHRONIC CELLULITIS LT GREAT TOE. COMPARISON: None. TECHNIQUE: Real-time sonographic vascular imaging was performed by the clinical neuropsychologist, utilizing color-flow, Doppler flow, and spectral analysis. Multiple kiosk sales representative static images were saved for review. FINDINGS: Grayscale ultrasound demonstrated hypoechoic and hyperechoic shadowing atherosclerosis, focal lesion is seen in the left common femoral artery which visually appears to occupy greater than 50% of the lumen. Additional diffuse partially shadowing atherosclerosis is seen in the SFA and below the knee vasculature segmentally. Color Doppler interrogation demonstrates the below vessels to be patent. Brisk systolic arterial upstrokes are preserved in the left common femoral artery, profunda femoris and SFA artery as well as popliteal artery throughout. The posterior tibial artery demonstrates minimal delay in arterial upstroke but mostly preserved waveform. Preserved waveform is seen in the peroneal artery. The dorsalis pedis artery demonstrates degradation of waveform with delayed upstroke, suggestive of tardus parvus flow. The following peak systolic velocities are seen in centimeters per second. Left Lower Extremity: Common Femoral: PSV 139 cm/sec. SFA Proximal: PSV 62 cm/sec. SFA Mid: PSV 55 cm/sec. SFA Distal: PSV 45 cm/sec. PFA: PSV 65 cm/sec. Popliteal: PSV 49 cm/sec. LIANNA: PSV 91 cm/sec. Tortuous. PANTS CLOSER: PSV 25 cm/sec. Peroneus: PSV 24 cm/sec. DPA: PSV 11 cm/sec. IMPRESSION: Diffuse atherosclerotic disease with gradual degradation of waveforms with question of heart is parvus waveform in the dorsalis pedis artery. Given clinical question of perfusion to the toe and potentially compromised angiosome, recommend consideration for diagnostic runoff specifically evaluating the vascular territory involving the great toe. LISA The call report notification system was initiated by Dr. Ezequiel Warren at 12:32 PM on 10/24/2019. The above call report findings were discussed with Christos Almonte by Dr. Ezequiel Warren at 12:39 PM on 10/24/2019.
== END 2019-10-23 14:59 | disposition home or self-care (01) ==
LOC: DI 14:58
PROVIDERS: ATTEND Family Medicine
DX: L03.032 Cellulitis of left toe (principal); I70.202 Unspecified atherosclerosis of native arteries of extremities, left leg

== ENCOUNTER 2019-10-26 20:10 | Outpatient (CLI) | payer MEDICARE, MEDICAID | END 2019-10-26 23:59 | disposition home or self-care (01) | LOC: LAB.R 20:10 | PROVIDERS: ATTEND Family Medicine | DX: A04.72 Enterocolitis due to Clostridium difficile, not specified as recurrent (principal) | CPT/HCPCS: 87493 ==

== ENCOUNTER 2019-11-17 00:15 | Outpatient (CLI) | payer MEDICARE, MEDICAID ==
[2019-11-17 01:11] LABS: BILIRUBIN,URINE NEGATIVE (NEGATIVE); GLUCOSE, URINE (UA) NEGATIVE (NEGATIVE); KETONES,URINE (UA) NEGATIVE (NEGATIVE); LEUKOCYTE ESTERASE, URINE NEGATIVE (NEGATIVE); NITRITE,URINE NEGATIVE (NEGATIVE); OCCULT BLOOD,URINE NEGATIVE (NEGATIVE); PROTEIN,URINE NEGATIVE (NEGATIVE); UROBILINOGEN,URINE 0.2 (NORMAL) E.U./dL (NORMAL)
[2019-11-17 01:13] LABS: CLARITY,URINE CLEAR (CLEAR)
== END 2019-11-17 23:59 | disposition home or self-care (01) ==
LOC: LAB.R 00:15
PROVIDERS: ATTEND Family Medicine
DX: N39.0 Urinary tract infection, site not specified (principal)
CPT/HCPCS: 81001; 81003; 87086

== ENCOUNTER 2019-11-18 13:20 | Outpatient (CLI) | payer MEDICARE, MEDICAID ==
[2019-11-18 15:18] LABS: BASOPHILS # (AUTO) 0.1 10^3/uL (0.0-0.1); BASOPHILS % (AUTO) 0.8 %; EOSINOPHILS # (AUTO) 0.7 10^3/uL (0.0-0.7); EOSINOPHILS % (AUTO) 9.5 %; HGB - HEMOGLOBIN 10.6 g/dL (14.0-18.0); LYMPHOCYTES # (AUTO) 1.4 10^3/uL (1.5-3.5); LYMPHOCYTES % (AUTO) 18.1 %; MEAN CORPUSCULAR HEMOGLOBIN 29.4 pg (27.0-31.0); MEAN CORPUSCULAR HGB CONC 31.7 g/dL (32.0-36.0); MEAN CORPUSCULAR VOLUME 92.8 fL (80.0-94.0); MEAN PLATELET VOLUME 11.6 fL (7.4-11.4); MONOCYTES # (AUTO) 0.7 10^3/uL (0.0-1.0); MONOCYTES % (AUTO) 8.7 %; NEUTROPHILS # (AUTO) 4.8 10^3/uL (1.5-6.6); NEUTROPHILS % (AUTO) 62.5 %; PLT - PLATELET COUNT 350 10^3/uL (130-450); RED CELL DISTRIBUTION WIDTH 16.6 % (12.0-15.0); WHITE BLOOD COUNT 7.7 x10^3/uL (4.8-10.8)
[2019-11-18 15:23] LABS: CALCIUM 8.8 mg/dL (8.5-10.3); CREATININE 0.9 mg/dL (0.6-1.2)
== END 2019-11-18 23:59 | disposition home or self-care (01) ==
LOC: LAB.R 13:20
DX: E11.65 Type 2 diabetes mellitus with hyperglycemia (principal); D64.9 Anemia, unspecified
CPT/HCPCS: 80048; 85025

== ENCOUNTER 2019-12-03 05:50 | Outpatient (CLI) | payer MEDICARE, MEDICAID, OTHER ==
[2019-12-03 10:23] LABS: BASOPHILS # (AUTO) 0.1 10^3/uL (0.0-0.1); BASOPHILS % (AUTO) 0.5 %; EOSINOPHILS # (AUTO) 0.6 10^3/uL (0.0-0.7); EOSINOPHILS % (AUTO) 4.9 %; HGB - HEMOGLOBIN 10.4 g/dL (14.0-18.0); LYMPHOCYTES # (AUTO) 1.8 10^3/uL (1.5-3.5); LYMPHOCYTES % (AUTO) 14.6 %; MEAN CORPUSCULAR HEMOGLOBIN 28.9 pg (27.0-31.0); MEAN CORPUSCULAR HGB CONC 31.2 g/dL (32.0-36.0); MEAN CORPUSCULAR VOLUME 92.5 fL (80.0-94.0); MEAN PLATELET VOLUME 12.3 fL (7.4-11.4); MONOCYTES # (AUTO) 0.7 10^3/uL (0.0-1.0); MONOCYTES % (AUTO) 5.7 %; NEUTROPHILS # (AUTO) 9.2 10^3/uL (1.5-6.6); NEUTROPHILS % (AUTO) 73.8 %; PLT - PLATELET COUNT 300 10^3/uL (130-450); WHITE BLOOD COUNT 12.5 x10^3/uL (4.8-10.8)
== END 2019-12-03 23:59 | disposition home or self-care (01) ==
LOC: LAB.R 05:50
PROVIDERS: ATTEND Family Medicine
DX: D64.9 Anemia, unspecified (principal); R79.89 Other specified abnormal findings of blood chemistry; I50.22 Chronic systolic (congestive) heart failure
CPT/HCPCS: 80048; 85025

== ENCOUNTER 2020-01-28 08:00 | Outpatient (CLI) | payer MEDICARE, MEDICAID, OTHER ==
[2020-01-28 10:00] LABS: BASOPHILS # (AUTO) 0.1 10^3/uL (0.0-0.1); BASOPHILS % (AUTO) 0.7 %; EOSINOPHILS # (AUTO) 2.1 10^3/uL (0.0-0.7); EOSINOPHILS % (AUTO) 14.7 %; HGB - HEMOGLOBIN 10.4 g/dL (14.0-18.0); LYMPHOCYTES # (AUTO) 1.5 10^3/uL (1.5-3.5); LYMPHOCYTES % (AUTO) 10.5 %; MEAN CORPUSCULAR HEMOGLOBIN 29.4 pg (27.0-31.0); MEAN CORPUSCULAR HGB CONC 32.5 g/dL (32.0-36.0); MEAN CORPUSCULAR VOLUME 90.4 fL (80.0-94.0); MEAN PLATELET VOLUME 10.8 fL (7.4-11.4); MONOCYTES # (AUTO) 0.8 10^3/uL (0.0-1.0); MONOCYTES % (AUTO) 5.8 %; NEUTROPHILS # (AUTO) 9.7 10^3/uL (1.5-6.6); NEUTROPHILS % (AUTO) 67.9 %; PLT - PLATELET COUNT 480 10^3/uL (130-450); RED BLOOD COUNT 3.54 10^6/uL (4.70-6.10); RED CELL DISTRIBUTION WIDTH 16.2 % (12.0-15.0); WHITE BLOOD COUNT 14.3 x10^3/uL (4.8-10.8)
[2020-01-28 10:19] LABS: CALCIUM 8.8 mg/dL (8.5-10.3); CREATININE 0.7 mg/dL (0.6-1.2); CRP - C-REACTIVE PROTEIN 2.7 mg/dL (0-1.0)
[2020-01-28 10:21] LABS: RBC MORPHOLOGY (MULTIPLE) 2+ ANISOCYTOSIS (NORMAL)
== END 2020-01-28 23:59 | disposition home or self-care (01) ==
LOC: LAB.R 08:00
DX: E78.5 Hyperlipidemia, unspecified (principal); D50.9 Iron deficiency anemia, unspecified; N18.3 Chronic kidney disease, stage 3 (moderate)
CPT/HCPCS: 80048; 85025; 85651; 86140